=== PATIENT | male | born 1955 | race Caucasian/White ===

== ENCOUNTER 2017-08-23 06:01 | Day surgery (SDC) | payer BC, OTHER ==
[2017-08-18 16:56] LABS: Absolute Lymphocytes (CBC) 2.1 K/uL (0.7-4.9); Absolute Monocytes 0.7 K/uL (0.1-1.3); Absolute Neutrophil 4.8 K/uL (1.8-8.0); Basophils % 0.7 % (0-1.3); Eosinophils % 1.8 % (0-4.4); Hematocrit 47.2 % (39.6-49.0); Lymphocytes % 26.9 % (15.3-44.8); MCH 30.3 pg (27.0-35.0); MCV 91.2 fL (80-100); MPV 9.6 fL (7.6-11.3); Monocytes % 8.6 % (3.3-12.3); RBC Red Blood Cell Count 5.17 M/uL (4.33-5.43)
[2017-08-18 17:03] LABS: Protime INR 1.49
[2017-08-18 17:10] LABS: Potassium 4.2 mEq/L (3.6-5.0)
[2017-08-23] MEDS ORDERED: NA CHLORIDE 0.9% 500 ML ONE (06:28)
[2017-08-23] MEDS ORDERED: MIDAZOLAM HCL 2 MG/2 ML INJ ONE ×2 (07:02→07:11)
[2017-08-23 07:50] VITALS: TEMP 97
--- NOTE | 2017-08-23 08:26 | EKG ---
Test Date: 2017-08-23 Test Time: 07:23:36 Hvac R Tech: SEVEN MEASUREMENT RESULTS: Intervals: Rate: 65 SD: 170 QRSD: 106 QT: 526 QTc: 547 [place]: P: 51 SD: 170 QRS: 56 T: -15 INTERPRETIVE STATEMENTS: Normal sinus rhythm Nonspecific ST and T wave abnormality Prolonged QT Abnormal ECG Compared to ECG 07/08/2017 18:54:58 Atrial fibrillation no longer present ST (T wave) deviation still present Electronically Signed On 08-23-17 08:25:23 CDT by Jer Nice
[2017-08-23 08:52] VITALS: BP 128/73
[2017-08-23 08:53] VITALS: O2SAT 97
--- NOTE | 2017-08-23 16:27 | OP ---
Date of Procedure: 08/23/2017 Surgeon: Jer Nice MD Sound Technician Supervisor: Ms. Rubio. Indications For Procedure: Mr. De Leon is a 62-year-old white male with history of alcoholic cardi omyopathy, paroxysmal atrial fibrillation, had cardioversion in the past, but had recurrent atrial fi brillation, placed on amiodarone and Xarelto, admitted as an outpatient for a cardioversion. He was brought to the lab animal technician, was given 12 mg of Versed IV sedation. He was given 2 shocks, one was 100, second one was 200 joules to convert him to sinus rhythm. There were no complications. No blood los s. Preoperative Diagnosis: Atrial fibrillation. Postoperative Diagnoses: Atrial fibrillation converted to sinus rhythm. Plan: We will continue his medical regimen including Xarelto and amiodarone. He will be able to go home whenever he wakes up. If he fails this down the road and has any recurrence, he will be transfe rred to Electrophysiology Services for possible ablation. Operators: Josh Hanks Voice ID: [id number] Report ID: [id number]
== END 2017-08-23 09:02 | disposition home or self-care (01) ==
LOC: CCL 06:01
PROC: 5A2204Z Restoration of Cardiac Rhythm, Single (ICD-10-PCS; principal; 2017-08-23)
DX: I48.91 Unspecified atrial fibrillation (principal); I10 Essential (primary) hypertension; E78.5 Hyperlipidemia, unspecified; Z79.01 Long term (current) use of anticoagulants; Z87.891 Personal history of nicotine dependence; Z82.49 Family history of ischemic heart disease and other diseases of the circulatory system
CPT/HCPCS: 36415; 80048; 85025; 85610; 85730; 92960; 93005; J2250

== ENCOUNTER 2017-12-29 06:48 | Day surgery (SDC) | payer BC, OTHER ==
--- NOTE | 2017-12-27 17:17 | RAD REPORT ---
EXAM DESCRIPTION: RAD - Chest Pa And Lat (2 Views) - 12/27/2017 5:09 pm CLINICAL HISTORY: preop Chest pain. COMPARISON: Chest Single View dated 07/08/2017; Chest Single View dated 08/19/2015; Chest Single View d ated 08/07/2015 FINDINGS: Diffuse emphysematous changes are present throughout the lungs. An equivocal small area of nodularity is noted in the right lower lung, not clearly present on the prior study. Followup CT [facility] [address] imaging would be helpful for clarification. The heart is mildly prominent size. No displaced fract ures. IMPRESSION: Diffuse COPD. Equivocal area of small nodularity in the right lower lung would benefit from follow-up CT chest asse ssment.
[2017-12-27 17:45] LABS: Absolute Lymphocytes (CBC) 1.8 K/uL (0.7-4.9); Absolute Monocytes 0.6 K/uL (0.1-1.3); Absolute Neutrophil 4.6 K/uL (1.8-8.0); Basophils % 0.9 % (0-1.3); Eosinophils % 1.6 % (0-4.4); Hematocrit 43.5 % (39.6-49.0); Lymphocytes % 24.9 % (15.3-44.8); MCH 30.1 pg (27.0-35.0); MCV 90.3 fL (80-100); MPV 10.4 fL (7.6-11.3); Monocytes % 8.2 % (3.3-12.3); RBC Red Blood Cell Count 4.81 M/uL (4.33-5.43)
[2017-12-27 17:49] LABS: Protime INR 1.43
[2017-12-27 17:57] LABS: Potassium 4.4 mmol/L (3.5-5.1)
[~2017-12-29 06:48] MED LIST: HEPA 1000U/500MLS 1,000 UNIT/500 ML BAG IV ONE
[2017-12-29] MEDS ORDERED: NA CHLORIDE 0.9% 500 ML ONE (07:33)
[2017-12-29] MEDS ORDERED: ATROPINE SULF 1 MG/10 ML SYR IV ONE (08:15)
[2017-12-29] MEDS ORDERED: NA CHLORIDE 0.9% 0 ML ONE (08:15)
[2017-12-29] MEDS ORDERED: MIDAZOLAM HCL 2 MG/2 ML INJ ONE (08:15)
[2017-12-29] MEDS ORDERED: FENTANYL CITR 100 MCG/2 ML ONE (08:15)
[2017-12-29] MEDS ORDERED: LIDOCAINE 1% MPF 5 ML VIAL ONE (08:19)
[2017-12-29 09:22] VITALS: TEMP 97
[2017-12-29 10:45] VITALS: O2SAT 98
[2017-12-29 11:17] VITALS: BP 112/76
--- NOTE | 2017-12-29 13:04 | OP ---
Surgeon: Jer Nice MD Senior Investigator: Kait Maddox. Admitted on 12/29/2017 for an outpatient heart catheterization. Procedures: Left heart catheterization, selective coronary arteriogram, and left ventriculogram. Indication: Atrial fibrillation, congestive heart failure, abnormal stress test. Mr. De Leon is 62, has had an abnormal stress test, severe cardiomyopathy, presumably secondary to alcohol. Recurrent resistant atrial fibrillation. Was sent to Dr. Hill to [place] for possible abl ation and maybe a pacemaker. They wanted us to do a heart catheterization first. He was brought to the lab head as an outpatient, prepped and draped in the routine sterile fashion. A 6-Nigerien sheath introduced in the right common femoral artery. Angio-Seal was used to close the case. Angiography i n the common femoral artery shows moderate to diffuse plaquing in the right SFA and common femoral ar opal. Vikram catheters were used to do the left main and right main injection. He had a total RCA 100% with collaterals from the LAD. He had about a 50% long stenosis in the circumflex. He is codom inant. LAD was normal overall with some very minimal plaquing. A pigtail was used to do the LV-gram . Ejection fraction was probably about 35-40%. Had moderate diffuse global hypokinesis. His end-di astolic pressure was 10. There were no complications. Blood Loss: 5 cc. Final Diagnoses: Congestive heart failure, coronary artery disease, and atrial fibrillation. Plan: To continue medical therapy. Refer back for possible ablation. Resume Xarelto starting [employer]. May be a candidate for ARBs or ARMEN inhibitors down the road. Total Conscious Sedation: 30 minutes. NB/MODL Voice ID: [id number] Report ID: [id number]
== END 2017-12-29 11:18 | disposition home or self-care (01) ==
LOC: CCL 06:48
PROC: 4A023N7 Measurement of Cardiac Sampling and Pressure, Left Heart, Percutaneous Approach (ICD-10-PCS; principal; 2017-12-29)
PROC: B2111ZZ Fluoroscopy of Multiple Coronary Arteries using Low Osmolar Contrast (ICD-10-PCS; 2017-12-29)
PROC: B2151ZZ Fluoroscopy of Left Heart using Low Osmolar Contrast (ICD-10-PCS; 2017-12-29)
DX: I25.10 Atherosclerotic heart disease of native coronary artery without angina pectoris (principal); R94.31 Abnormal electrocardiogram [ECG] [EKG]; R07.89 Other chest pain; E78.5 Hyperlipidemia, unspecified; Z82.49 Family history of ischemic heart disease and other diseases of the circulatory system; I48.91 Unspecified atrial fibrillation; Z87.891 Personal history of nicotine dependence; E78.6 Lipoprotein deficiency; I42.6 Alcoholic cardiomyopathy; Z79.01 Long term (current) use of anticoagulants; Z79.82 Long term (current) use of aspirin; I11.0 Hypertensive heart disease with heart failure; I50.9 Heart failure, unspecified
CPT/HCPCS: 36415; 71046; 80048; 85025; 85610; 85730; 93458; C1760; C1893; J0583; J2250; J3010

== ENCOUNTER 2018-01-12 09:27 | Observation (INO) | payer BC, OTHER ==
[2018-01-12] MEDS ORDERED: LEVALBUTEROL 1.25 MG/3 ML NEB ONE (10:01)
[2018-01-12] MEDS ORDERED: FUROSEMIDE 20 MG/ 2ML VIAL ONE ×2 (10:11→14:20)
[2018-01-12 10:12] LABS: Absolute Lymphocytes (CBC) 1.3 K/uL (0.7-4.9); Absolute Monocytes 0.5 K/uL (0.1-1.3); Absolute Neutrophil 7.4 K/uL (1.8-8.0); Basophils % 0.6 % (0-1.3); Eosinophils % 0.6 % (0-4.4); Hematocrit 42.8 % (39.6-49.0); Lymphocytes % 13.9 % (15.3-44.8); MCH 30.2 pg (27.0-35.0); MCV 90.6 fL (80-100); MPV 9.8 fL (7.6-11.3); Monocytes % 5.4 % (3.3-12.3); RBC Red Blood Cell Count 4.72 M/uL (4.33-5.43)
[2018-01-12 10:17] LABS: Protime INR 2.35
[2018-01-12 10:27] LABS: Albumin 3.8 g/dL (3.4-5.0); Bilirubin Direct 0.3 mg/dL (0-0.2); Magnesium 2.2 mg/dL (1.8-2.4); Potassium 4.7 mmol/L (3.5-5.1); Protein, Total 6.9 g/dL (6.4-8.2); Troponin (Emerg Dept Use Only) 0.03 ng/mL (0.0-0.045)
--- NOTE | 2018-01-12 11:01 | RAD REPORT ---
EXAM DESCRIPTION: RAD - Chest Single View - 01/12/2018 10:19 am CLINICAL HISTORY: Chest pain;SOB Chest pain. COMPARISON: Chest Pa And Lat (2 Views) dated 12/27/2017; Chest Single View dated 07/08/2017; Chest Sing le View dated 08/19/2015; Chest Single View dated 08/07/2015 FINDINGS: Portable technique limits examination quality. The lungs are emphysematous but grossly clear. Heart is moderately enlarged. No displaced fractures. IMPRESSION: Mild COPD.
--- NOTE | 2018-01-12 11:11 | EKG ---
Test Date: 2018-01-12 Test Time: 09:35:19 Dental Laboratory Technology Teacher: TONI MEASUREMENT RESULTS: Intervals: Rate: 103 GA: QRSD: 124 QT: 382 QTc: 500 [place]: P: GA: QRS: 68 T: 180 INTERPRETIVE STATEMENTS: Atrial fibrillation with rapid ventricular response Cannot rule out Inferior infarct, age undetermined ST & T wave abnormality, consider lateral ischemia or digitalis effect Abnormal ECG Compared to ECG 08/23/2017 07:23:36 Myocardial infarct finding now present Possible ischemia now present Sinus rhythm no longer present Prolonged QT interval no longer present ST (T wave) deviation still present Electronically Signed On 01-12-18 11:11:18 CDT by Jer Nice
--- NOTE | 2018-01-12 11:16 | RAD REPORT ---
EXAM DESCRIPTION: CT - Thorax Wo Con - 01/12/2018 10:47 am CLINICAL HISTORY: Chest pain COMPARISON: July 2015 TECHNIQUE: Computed axial tomography of the chest was obtained. Contrast was not requested. All CT scans are performed using dose optimization technique as appropriate and may include automated exposure control or mA/KV adjustment according to patient size. FINDINGS: The evaluation of mediastinum, monica and vessels is limited secondary to lack of IV contras t administration. Mild ground-glass opacities within the right lung are present. The heart is enlarged Several middle mediastinal lymph nodes measure about 1 centimeter. Calcified mediastinal lymph nodes are also noted. Small bilateral pleural effusions are present. A pericardial effusion is not seen. Coronary arterial calcifications are noted. IMPRESSION: Small bilateral pleural effusions Cardiomegaly Mild ground-glass opacities within the right lung indicative of a mild alveolitis. Mild mediastinal lymphadenopathy probably is reactive in nature. Follow up CT chest in 3 months would be helpful to assess stability/ resolution.
--- NOTE | 2018-01-12 12:21 | ER ---
Nurse's Notes [facility] Name: Tad De Leon Age: 62 yrs Sex: Male : 1955 Arrival Date: 01/12/2018 Time: 09:28 Bed 3 Private MD: BERTA DANG Diagnosis: CHF, COPD exacerbation, chest pain Presentation: 01/12 09:36 Presenting complaint: Patient states: substernal chest pain x 1 week, cardiac cath done jl7 last Tuesday, has an ablation scheduled for next Tuesday. Dyspnea since yesterday. Transition of care: patient was not received from another setting of care. Onset of symptoms was January 11, 2018. Risk Assessment: Do you want to hurt yourself or someone else? Patient reports no desire to harm self or others. Initial Sepsis Screen: Does the patient meet any 2 criteria? No. Patient's initial sepsis screen is negative. Does the patient have a suspected source of infection? No. Patient's initial sepsis screen is negative. Care prior to arrival: None. 09:36 Method Of Arrival: Ambulatory [facility] 09:36 Acuity: ANTONIO 2 jl7 Triage Assessment: 09:41 General: Appears uncomfortable, Behavior is cooperative. Pain: Complains of pain in jl7 mid-sternal area Pain does not radiate. Pain currently is 5 out of 10 on a pain scale. Quality of pain is described as burning, "It really only starts really bothering me when my blood pressure is high." Is intermittent. EENT: No signs and/or symptoms were reported regarding the EENT system. Neuro: Level of Consciousness is awake, alert, obeys commands, Oriented to person, place, time, situation. Cardiovascular: Heart tones present Murmur present Chest pain is described as Pain is 5 out of 10 on a pain scale. quality is burning, is located in substernal area episodes are intermittent. Respiratory: Airway is patent Respiratory effort is even, unlabored, Respiratory pattern is regular, symmetrical, Breath sounds with wheezes bilaterally. GI: Reports nausea, Patient currently denies diarrhea, vomiting. : No signs and/or symptoms were reported regarding the genitourinary system. Derm: No signs and/or symptoms reported regarding the dermatologic system. Musculoskeletal: No signs and/or symptoms reported regarding the musculoskeletal system. Historical: - Allergies: 09:41 No Known Allergies; jl7 - Home Meds: 09:41 Xarelto oral oral [Active]; jl7 - PMHx: 09:41 Arthritis; Atrial Fib; High Cholesterol; Hypothyroidism; Hypertension; jl7 - PSHx: 09:41 Cardiac Cath; jl7 - Immunization history:: Adult Immunizations unknown. - Social history:: Smoking status: Patient uses tobacco products, denies chronic smoking, but will smoke occasionally. - Ebola Screening: : No symptoms or risks identified at this time. Screenin:45 Abuse screen: Denies threats or abuse. Denies injuries from another. Nutritional jl7 screening: No deficits noted. Tuberculosis screening: No symptoms or risk factors identified. Fall Risk IV access (20 points). Assessment: :45 General: Dr. Braga at bedside, pt reports "I've had shortness of breath since I had jl7 the cardiac cath last Tuesday.". 10:00 Reassessment: Removed NC to administer breathing treatment. NC was off for jl7 approximately 30 seconds and pt's O2 decreased to 87%, provider notified. 11:00 Reassessment: No changes from previously documented assessment. Patient and/or family jl7 updated on plan of care and expected duration. Pain level reassessed. Patient is alert, oriented x 3, equal unlabored respirations, skin warm/dry/pink. 12:00 Reassessment: Patient and/or family updated on plan of care and expected duration. Pain jl7 level reassessed. Patient is alert, oriented x 3, equal unlabored respirations, skin warm/dry/pink. Patient states symptoms have improved. 13:00 Reassessment: Patient appears in no apparent distress at this time. Patient and/or jl7 family updated on plan of care and expected duration. Pain level reassessed. Patient is alert, oriented x 3, equal unlabored respirations, skin warm/dry/pink. 14:00 Reassessment: Patient and/or family updated on plan of care and expected duration. Pain jl7 level reassessed. Patient is alert, oriented x 3, equal unlabored respirations, skin warm/dry/pink. Pain: Denies pain. Pain began a week ago. Vital Signs: 09:33 BP 120 / 95; Pulse 99; Resp 15 S; Pulse Ox 89% on R/A; Weight 97.52 kg (R); Height 6 jl7 ft. 0 in. (182.88 cm) (R); Pain 5/10; 09:40 Pulse Ox 96% on 2 lpm NC; jl7 10:00 BP 105 / 76; Pulse 78; Resp 19 S; Pulse Ox 100% on Nebulizer Mask; jl7 10:30 BP 104 / 82; Pulse 88; Resp 16; Pulse Ox 99% on 2% Nebulizer Mask; jl7 11:08 BP 115 / 71; Pulse 84; Resp 23; Pulse Ox 91% on 2 lpm NC; jl7 12:00 BP 105 / 77; Pulse 81; Resp 16 S; Pulse Ox 97% on 2 lpm NC; jl7 13:00 BP 110 / 83; Pulse 65; Resp 17; Pulse Ox 97% on 2 lpm NC; jl7 09:33 Body Mass Index 29.16 (97.52 kg, 182.88 cm) jl7 ED Course: 09:28 Patient arrived in ED. rg4 09:28 Antonette Ruelas RN is Primary Nurse. jl7 09:29 BERTA DANG is Private Physician. rg4 09:33 Arm band placed on right wrist. jl7 09:38 Triage completed. jl7 09:39 Inserted saline lock: 20 gauge in right antecubital area, using aseptic technique. tw2 Blood collected. Oxygen administration via nasal cannula \\T\\ 2L/min Response to oxygen therapy: pt states improved with his SOB. 09:40 EKG done, by technology manager. reviewed by Minesh Braga MD. sm3 09:45 Minesh Braga MD is Attending Physician. kdr 09:45 Patient has correct armband on for positive identification. Placed in gown. Bed in low jl7 position. Call light in reach. Side rails up X2. monitor car operator on. Pulse ox on. NIBP on. Warm blanket given. 10:15 X-ray completed. Portable x-ray completed in exam room. sw 10:16 XRAY Chest (1 view) In Process Unspecified. EDMS 10:47 Thorax Wo Con In Process Unspecified. EDMS 12:16 Irene Garcia MD is Hospitalizing Provider. kdr 17:15 No provider procedures requiring assistance completed. Patient admitted, IV remains in jl7 place. intact, No redness/swelling at site. Administered Medications: 09:57 Drug: Xopenex (3) 1.25 mg Route: Inhalation; jl7 10:30 Follow up: Response: No adverse reaction jl7 10:12 Drug: Lasix 20 mg Route: IVP; Site: right antecubital; jl7 11:00 Follow up: Response: No adverse reaction jl7 14:38 Drug: Lasix 20 mg Route: IVP; Site: right antecubital; jl7 15:00 Follow up: Response: No adverse reaction jl7 14:40 Drug: SOLU-Medrol 125 mg Route: IVP; Site: right antecubital; jl7 15:00 Follow up: Response: No adverse reaction jl7 Outcome: 12:20 Decision to Hospitalize by Provider. kdr 16:53 Patient left the ED. sg 17:15 Admitted to Tele accompanied by tech, via wheelchair, room 409, with chart, Report jl7 called to AIDEE Barros 17:15 Condition: stable 17:15 Discharge instructions given to patient, Instructed on the need for admit, Demonstrated understanding of instructions. Signatures: Dispatcher [employer] Freedom Atkins, Minesh Ferrara RN, MD MD kdr Lindy Piedra Tara, RN RN tw2 Lazara Pierre 4 Antonette Ruelas RN RN jl7 Berta Bustamante 3
--- NOTE | 2018-01-12 12:21 | EDPHYS ---
Physician Documentation [facility] Name: Tad De Leon Age: 62 yrs Sex: Male : 1955 Arrival Date: 01/12/2018 Time: 09:28 Bed 3 Private MD: BERTA DANG ED Physician Minesh Braga HPI: 01/12 15:36 This 62 yrs old Male presents to ER via Ambulatory with complaints of Chest kdr Pain, Breathing Difficulty. 15:37 The patient has shortness of breath at rest, with light activity. Onset: The kdr symptoms/episode began/occurred gradually, 1 week(s) ago. Duration: The symptoms are continuous, and are steadily getting worse. The patient's shortness of breath is aggravated by coughing, exertion, light activity. Associated signs and symptoms: The patient has no apparent associated signs or symptoms, Pertinent positives: chest pain. Severity of symptoms: At their worst the symptoms were moderate in the emergency department the symptoms are unchanged. The patient has not experienced similar symptoms in the past. The patient has been recently seen by a physician: One week DIVER PUMPER the patient had a heart cath in [place]. Since then, he has been increasingly short of breath. Historical: - Allergies: 09:41 No Known Allergies; jl7 - Home Meds: 09:41 Xarelto oral oral [Active]; jl7 - PMHx: 09:41 Arthritis; Atrial Fib; High Cholesterol; Hypothyroidism; Hypertension; jl7 - PSHx: 09:41 Cardiac Cath; jl7 - Immunization history:: Adult Immunizations unknown. - Social history:: Smoking status: Patient uses tobacco products, denies chronic smoking, but will smoke occasionally. - Ebola Screening: : No symptoms or risks identified at this time. ROS: 15:37 Constitutional: Negative for fever, chills, and weight loss, Eyes: Negative for injury, kdr pain, redness, and discharge, Neck: Negative for injury, pain, and swelling, Cardiovascular: Negative for chest pain, palpitations, and edema, Abdomen/GI: Negative for abdominal pain, nausea, vomiting, diarrhea, and constipation, Back: Negative for injury and pain, : Negative for injury, bleeding, discharge, and swelling, MS/Extremity: Negative for injury and deformity, Skin: Negative for injury, rash, and discoloration, Neuro: Negative for headache, weakness, numbness, tingling, and seizure activity. Psych: Negative for depression, anxiety, suicide ideation, homicidal ideation, and hallucinations, Allergy/Immunology: Negative for hives, rash, and allergies, Endocrine: Negative for neck swelling, polydipsia, polyuria, polyphagia, and marked weight changes, Hematologic/Lymphatic: Negative for swollen nodes, abnormal bleeding, and unusual bruising. 15:37 Respiratory: Positive for dyspnea on exertion, shortness of breath, wheezing, Negative for cough, hemoptysis, orthopnea, pleurisy, sputum production, wheezing. Exam: 15:37 Constitutional: This is a well developed, well nourished patient who is awake, alert, kdr and in no acute distress. Head/Face: Normocephalic, atraumatic. Eyes: Pupils equal round and reactive to light, extra-ocular motions intact. Lids and lashes normal. Conjunctiva and sclera are non-icteric and not injected. Cornea within normal limits. Periorbital areas with no swelling, redness, or edema. Neck: Trachea midline, no thyromegaly or masses palpated, and no cervical lymphadenopathy. Supple, full range of motion without nuchal rigidity, or vertebral point tenderness. No Meningismus. Chest/axilla: Normal chest wall appearance and motion. Nontender with no deformity. No lesions are appreciated. Cardiovascular: Regular rate and rhythm with a normal S1 and S2. No gallops, murmurs, or rubs. Normal PMI, no JVD. No pulse deficits. Respiratory: Lungs have equal breath sounds bilaterally, clear to auscultation and percussion. No rales, rhonchi or wheezes noted. No increased work of breathing, no retractions or nasal flaring. Abdomen/GI: Soft, non-tender, with normal bowel sounds. No distension or tympany. No guarding or rebound. No evidence of tenderness throughout. Back: No spinal tenderness. No costovertebral tenderness. Full range of motion. Skin: Warm, dry with normal turgor. Normal color with no rashes, no lesions, and no evidence of cellulitis. MS/ Extremity: Pulses equal, no cyanosis. Neurovascular intact. Full, normal range of motion. Neuro: Awake and alert, GCS 15, oriented to person, place, time, and situation. Cranial nerves II-XII grossly intact. Motor strength 5/5 in all extremities. Sensory grossly intact. Cerebellar exam normal. Normal gait. Psych: Awake, alert, with orientation to person, place and time. Behavior, mood, and affect are within normal limits. Vital Signs: 09:33 BP 120 / 95; Pulse 99; Resp 15 S; Pulse Ox 89% on R/A; Weight 97.52 kg (R); Height 6 jl7 ft. 0 in. (182.88 cm) (R); Pain 5/10; 09:40 Pulse Ox 96% on 2 lpm NC; jl7 10:00 BP 105 / 76; Pulse 78; Resp 19 S; Pulse Ox 100% on Nebulizer Mask; jl7 10:30 BP 104 / 82; Pulse 88; Resp 16; Pulse Ox 99% on 2% Nebulizer Mask; jl7 11:08 BP 115 / 71; Pulse 84; Resp 23; Pulse Ox 91% on 2 lpm NC; jl7 12:00 BP 105 / 77; Pulse 81; Resp 16 S; Pulse Ox 97% on 2 lpm NC; jl7 13:00 BP 110 / 83; Pulse 65; Resp 17; Pulse Ox 97% on 2 lpm NC; jl7 09:33 Body Mass Index 29.16 (97.52 kg, 182.88 cm) jl7 MDM: 12:20 Patient medically screened. kdr 15:40 Data reviewed: vital signs, nurses notes, lab test result(s), EKG, radiologic studies. kdr Counseling: I had a detailed discussion with the patient and/or guardian regarding: the historical points, exam findings, and any diagnostic results supporting the discharge/admit diagnosis, lab results, radiology results, the need for outpatient follow up. 01/12 09:45 Order name: Basic Metabolic Panel; Complete Time: 11:16 kdr 01/12 09:45 Order name: CBC with Diff; Complete Time: 11:16 kdr 01/12 09:45 Order name: Ckmb; Complete Time: 11:16 kdr 01/12 09:45 Order name: CPK; Complete Time: 11:16 kdr 01/12 09:45 Order name: LFT's; Complete Time: 11:16 kdr 01/12 09:45 Order name: Magnesium; Complete Time: 11:16 kdr 01/12 09:45 Order name: NT PRO-BNP; Complete Time: 11:16 kdr 01/12 09:45 Order name: PT-INR; Complete Time: 11:16 kdr 01/12 09:45 Order name: Ptt, Activated; Complete Time: 11:16 kdr 01/12 09:45 Order name: Troponin (emerg Dept Use Only); Complete Time: 11:16 kdr 01/12 09:45 Order name: XRAY Chest (1 view); Complete Time: 11:16 kdr 01/12 10:33 Order name: Thorax Wo Con; Complete Time: 11:52 EDMS 01/12 11:54 Order name: ABG kdr 01/12 09:45 Order name: EKG; Complete Time: 09:46 kdr 01/12 09:45 Order name: Cardiac monitoring; Complete Time: 10:13 kdr 01/12 09:45 Order name: EKG - Nurse/Tech; Complete Time: 10:13 kdr 01/12 09:45 Order name: IV Saline Lock; Complete Time: 10:13 kdr 01/12 09:45 Order name: Labs collected and sent; Complete Time: 10:13 kdr 01/12 09:45 Order name: O2 Per Protocol; Complete Time: 10:13 kdr 01/12 09:45 Order name: O2 Sat Monitoring; Complete Time: 10:13 kdr 01/12 13:15 Order name: Echo with Doppler EDMS Administered Medications: 09:57 Drug: Xopenex (3) 1.25 mg Route: Inhalation; jl7 10:30 Follow up: Response: No adverse reaction jl7 10:12 Drug: Lasix 20 mg Route: IVP; Site: right antecubital; jl7 11:00 Follow up: Response: No adverse reaction jl7 14:38 Drug: Lasix 20 mg Route: IVP; Site: right antecubital; jl7 15:00 Follow up: Response: No adverse reaction jl7 14:40 Drug: SOLU-Medrol 125 mg Route: IVP; Site: right antecubital; jl7 15:00 Follow up: Response: No adverse reaction jl7 Disposition: 01/12/18 12:20 Hospitalization ordered by Irene Garcia for Observation. Preliminary diagnosis is CHF, COPD exacerbation, chest pain. - Bed requested for Telemetry/MedSurg (observation). - Status is Observation. sg - Condition is Fair. - Problem is an acute exacerbation. - Symptoms have improved. UTI on Admission? No Signatures: Dispatcher [employer] EDMS Amara Delvalle bd Freedom Lundberg RN RN sg Minesh Braga MD MD kdr Antonette Ruelas RN RN jl7 Corrections: (The following items were deleted from the chart) 10:33 10:04 Chest For PE Angio+CT.RAD.BRZ ordered. EDNE EDMS 14:57 12:20 Hospitalization Ordered by Irene Garcia MD for Observation. Preliminary bd diagnosis is CHF, COPD exacerbation, chest pain. Bed requested for Telemetry/MedSurg (observation). Status is Observation. Condition is Fair. Problem is an acute exacerbation. Symptoms have improved. UTI on Admission? No. kdr 15:40 15:37 Constitutional: Negative for fever, chills, and weight loss, Eyes: Negative for kdr injury, pain, redness, and discharge, Neck: Negative for injury, pain, and swelling, Cardiovascular: Negative for chest pain, palpitations, and edema, Abdomen/GI: Negative for abdominal pain, nausea, vomiting, diarrhea, and constipation, Back: Negative for injury and pain, : Negative for injury, bleeding, discharge, and swelling, MS/Extremity: Negative for injury and deformity, Skin: Negative for injury, rash, and discoloration, Neuro: Negative for headache, weakness, numbness, tingling, and seizure activity. Psych: Negative for depression, anxiety, suicide ideation, homicidal ideation, and hallucinations, Allergy/Immunology: Negative for hives, rash, and allergies, Endocrine: Negative for neck swelling, polydipsia, polyuria, polyphagia, and marked weight changes, Hematologic/Lymphatic: Negative for swollen nodes, abnormal bleeding, and unusual bruising, kdr 15:40 15:37 Respiratory: Positive for dyspnea on exertion, shortness of breath, Negative for kdr cough, hemoptysis, orthopnea, pleurisy, sputum production, wheezing, kdr 16:53 14:57 01/12/2018 12:20 Hospitalization Ordered by Irene Garcia MD for Observation. Preliminary diagnosis is CHF, COPD exacerbation, chest pain. Bed requested for Telemetry/MedSurg (observation). Status is Observation. Condition is Fair. Problem is an acute exacerbation. Symptoms have improved. UTI on Admission? No. bd
[2018-01-12 12:31] LABS: Arterial Blood Carboxyhemoglob 2.4 % (0-1.5); Blood Gas Oxyhemoglobin 92.3 % (94-97); Blood O2 Saturation 95.6 % (92-98.5)
--- NOTE | 2018-01-12 14:00 | P.HP ---
Certification for Inpatient Patient admitted to: Inpatient With expected LOS: >2 Midnights Patient will require the following post-hospital care: None Practitioner: I am a practitioner with admitting privileges, knowledge of patient current condition, hospital course, and medical plan of care. Services: Services provided to patient in accordance with Admission requirements found in Title 42 Section 412.3 of the Code of Federal Regulations Patient History Date of Service: 01/12/18 Primary Care Provider: Dr. Nice - Cardiology Reason for admission: Shortness of breath History of Present Illness: This is a 62-year-old male with significant past medical history of hypertension , hyperlipidemia, hypothyroidism, atrial fibrillation, who presented to the ED complaining of having some shortness of breath x1 week. Patient was recently admitted to the hospital and had a heart carry a catheterization done at this time for chest pain. Patient's cardiac catheterization was within normal limits. Patient however states that since the cardiac catheterization he has been having some shortness of breath has been getting progressively worse. Patient states that he does have underlying COPD and does take his inhalers at home however he uses them as needed basis only. Patient states that his has been having trouble talking to full sentences and has been noticing that he has been getting tired more than before. Patient at this time does deny having any fever chills nausea vomiting or any chest pain at this time. Other than shortness of breath. Patient does not have any other complaints to offer. In the ER patient was found to have tachypnea along with hypoxia on room air in this patient was referred over to admission for further care. X-ray was consistent with mild COPD as well. Allergies No Known Allergies Allergy (Verified 12/27/17 16:47) Home medications list reviewed: Yes Home Medications: Cyanocobalamin (Vitamin B-12) [Vitamin B12] 1,000 mcg PO DAILY 08/08/15 Magnesium Oxide [Mag 0X*] 400 mg PO DAILY 08/08/15 Multivit-Min/FA/Lycopen/Lutein [Centrum Silver Tablet] 1 each PO DAILY 08/08/15 Simvastatin [Zocor*] 20 mg PO DAILY 08/08/15 Thyroid Tab [[place] Thyroid*] 105 mg PO DAILY 08/08/15 Tramadol HCl [Ultram] 50 mg PO DAILY 08/08/15 Amiodarone HCl [Cordarone*] 200 mg PO DAILY 07/08/17 Aspirin Chewable [Aspirin Chewable*] 81 mg PO DAILY 07/08/17 Turmeric Root Extract [Turmeric] 500 mg PO DAILY 07/08/17 Amiodarone HCl 200 mg PO DAILY #60 tablet 07/09/17 Aspirin 81 mg PO DAILY #30 tab.chew 07/09/17 Budesonide/Formoterol Fumarate [Symbicort 160-4.5 Mcg Inhaler] 1 puff IH BID #5 hfa.aer.ad 07/09/17 Furosemide [Lasix] 40 mg PO DAILY #30 tablet 07/09/17 Levalbuterol Tartrate [Xopenex Hfa] 15 gm IH Q4H PRN #1 hfa.aer.ad 07/09/17 Potassium Chloride 20 meq PO DAILY 30 Days #30 tablet.er 07/09/17 - Past Medical/Surgical History Has patient received pneumonia vaccine in the past: No Diabetic: No -: HTN -: Atrial fibrillation -: Dyslipidemia -: hypothyroid -: arthritis -: Right shoulder surgery - Family History Family History: Reviewed- Non-Contributory - Family History Father -: Heart disease Notes: of heart attack Mother -: Heart disease, Cancer Brother -: Diabetes - Social History Smoking Status: Current every day smoker Alcohol use: Yes CD- Drugs: No Caffeine use: Yes Review of Systems 10-point ROS is otherwise unremarkable Physical Examination - Physical Exam General: Alert, Oriented x3, Mild distress, Obese HEENT: Atraumatic, PERRLA, Mucous membr. moist/pink, EOMI, Sclerae nonicteric Neck: Supple, 2+ carotid pulse no bruit, No LAD, Without JVD or thyroid abnormality Respiratory: Normal air movement, Crackles/rales, Expiratory wheezes, Inspiratory wheezes Cardiovascular: Regular rate/rhythm, Normal S1 S2 Gastrointestinal: Normal bowel sounds, No tenderness Musculoskeletal: No tenderness Integumentary: No rashes Neurological: Normal gait, Normal speech, Normal strength at 5/5 x4 extr, Normal tone, Normal affect Lymphatics: No axilla or inguinal lymphadenopathy - Studies Laboratory Data (last 24 hrs) 01/12/18 09:45: PT 28.0 H, INR 2.35, APTT 42.1 H 01/12/18 09:45: WBC 9.3, Hgb 14.3, Hct 42.8, Plt Count 220 01/12/18 09:45: Sodium 143, Potassium 4.7, BUN 33 H, Creatinine 1.80 H, Glucose 138 H, Magnesium 2.2, Total Bilirubin 1.0, AST 24, ALT 35, Alkaline Phosphatase 72 Assessment and Plan - Problems (Diagnosis) (1) Shortness of breath Onset Date: 08/08/15 Current Visit: No Status: Acute Plan: Shortness of breath x1 week. Progressively getting worse. Most likely secondary to COPD exacerbation versus AFib versus CHF. -for COPD exacerbation was start patient on duo nebs, oxygen and steroids at this time. Will get pulmonology consulted. Will wean off oxygen as needed -For atrial fibrillation patient remains rate control at this time. Patient does have an appointment with EP student life advisor to get a cardiac ablation next Tuesday. Will keep the appointment at this time. Also will get a cardiology consultation done here in the hospital as well. -for patient's possible CHF. Will go ahead and get an echocardiogram done here in the hospital. Will also get cardiology consultation at this time. Will hold off on giving Lasix as x-rays clear of edema (2) COPD with acute exacerbation Current Visit: No Status: Acute Plan: COPD with acute exacerbation with hypoxia -duo nebs, steroids, oxygen -wean oxygen as tolerated -pulmonology consulted. Awaiting recommendations at this time. (3) Afib Current Visit: Yes Status: Chronic Plan: Atrial fibrillation. Rate control at this time. -will restart home medication for rate control and anti coagulation at this time Qualifiers: Atrial fibrillation type: chronic Qualified Code(s): I48.2 - Chronic atrial fibrillation (4) Hypothyroid Current Visit: Yes Status: Chronic Plan: Will restart home medication at this time (5) Alcohol abuse Current Visit: No Status: Chronic (6) Tobacco abuse Current Visit: No Status: Chronic Discharge Plan: Home Plan to discharge in: 48 Hours - Advance Directives Does patient have a Living Will: No Does patient have a Durable POA for Healthcare: No - Code Status/Comfort Care Code Status Assessed: Yes Critical Care: No
[2018-01-12] MEDS ORDERED: METHYLPREDNISOLONE 125 MG INJ ONE (14:20)
[2018-01-12] MEDS ORDERED: ONDANSETRON 4 MG/2 ML VIAL IV PRN (15:38)
[2018-01-12] MEDS ORDERED: IPRATROPIUM BROM 0.5MG/2.5ML NEB PRN (15:38)
[2018-01-12] MEDS ORDERED: ALBUTEROL 2.5 MG/3 ML NEB SOL NEB PRN (15:38)
[2018-01-12] MEDS ORDERED: ACETAMINOPHEN 500 MG TAB PO PRN (15:38)
[2018-01-12] MEDS: INSULIN -REGULAR HUMAN 50 UNIT/0.5 ML ML SQ SCH ×2 (16:30→21:00)
[2018-01-12] MEDS ORDERED: RIVAROXABAN 20 MG TABLET PO SCH (17:00)
[2018-01-12] MEDS: ENOXAPARIN 40 MG/0.4 ML SQ SCH (18:15)
[2018-01-12] MEDS ORDERED: PNEUMOCOCCAL VACCINE 0.5 ML IMVAC ONE (21:00)
[2018-01-12] MEDS ORDERED: HOME MED 1 EA UNK (Ranolazine [Ranexa] 500 MG) PO SCH (21:00)
[2018-01-12] MEDS ORDERED: ATORVASTATIN 10 MG TAB PO SCH (21:00)
[2018-01-12] MEDS: METOPROLOL TAR 25 MG TAB PO SCH (21:55)
[2018-01-13 03:24] LABS: Urine Appearance CLEAR; Urine Bilirubin NEGATIVE (NEG); Urine Blood NEGATIVE (NEG); Urine Color YELLOW; Urine Glucose NEGATIVE (NEG); Urine Protein NEGATIVE (NEG); Urine pH 6.5 (5.0-7.0)
[2018-01-13 03:28] LABS: Urine Microscopic Reflex NO UMIC
[2018-01-13 05:54] LABS: Absolute Lymphocytes (CBC) 0.6 K/uL (0.7-4.9); Absolute Monocytes 0.1 K/uL (0.1-1.3); Absolute Neutrophil 6.7 K/uL (1.8-8.0); Basophils % 0.1 % (0-1.3); Eosinophils % 0.1 % (0-4.4); Hematocrit 38.8 % (39.6-49.0); Lymphocytes % 7.9 % (15.3-44.8); MCV 89.2 fL (80-100); MPV 9.6 fL (7.6-11.3); Monocytes % 1.4 % (3.3-12.3); RBC Red Blood Cell Count 4.35 M/uL (4.33-5.43)
[2018-01-13 06:07] LABS: Albumin 3.4 g/dL (3.4-5.0); Bilirubin Total 0.7 mg/dL (0.2-1.0); Potassium 3.8 mmol/L (3.5-5.1); Protein, Total 6.2 g/dL (6.4-8.2)
[2018-01-13 06:39] VITALS: BMI 28.8
[2018-01-13 07:18] LABS: Blood Morphology Comment NOTED (NOT SEEN)
[2018-01-13 07:20] LABS: Platelet Estimate ADEQ
[2018-01-13] MEDS: INSULIN -REGULAR HUMAN 50 UNIT/0.5 ML ML SQ SCH ×2 (07:30→11:30)
--- NOTE | 2018-01-13 08:12 | ECHO ---
HEIGHT: 6 ft 0 in WEIGHT: 213 lb 0 oz DATE OF STUDY: 01/12/[address]: Irene Garcia MD 2-DIMENSIONAL: YES M.MODE: YES DOPPLER: YES COLOR FLOW: YES TDS: NO PORTABLE: NO DEFINITY: NO BUBBLE STUDY: NO DIAGNOSIS: SHORTNESS OF BREATH CARDIAC HISTORY: CATHERIZATION: NO SURGERY: NO PROSTHETIC VALVE: NO PACEMAKER: NO MEASUREMENTS (cm) DIASTOLIC (NORMALS) SYSTOLIC (NORMALS) IVSd 1.1 (0.6-1.2) LA Diam 5.3 (1.9-4.0) LVEF 23% LVIDd 7.2 (3.5-5.7) LVIDs 6.4 (2.0-3.5) %FS 11% LVPWd 1.2 (0.6-1.2) Ao Diam 2.9 (2.0-3.7) 2 DIMENSIONAL ASSESSMENT: RIGHT ATRIUM: NORMAL LEFT ATRIUM: DILATED RIGHT VENTRICLE: NORMAL LEFT VENTRICLE: DILATED TRICUSPID VALVE: NORMAL MITRAL VALVE: MITRAL ANNULAR CALCIFICATION PULMONIC VALVE: NORMAL AORTIC VALVE: NORMAL PERICARDIAL EFFUSION: NONE AORTIC ROOT: NORMAL LEFT VENTRICULAR WALL MOTION: SEVERE GLOBAL HYPOKINESIS. DOPPLER/COLOR FLOW: MILD MITRAL, TRICUSPID AND AORTIC REGURGITATION. COMMENTS: SEVERE GLOBAL HYPOKINESIS. LEFT VENTRICULAR DILATATION. LEFT ATRIAL ENLARGEMENT. MITRAL ANNULAR CALCIFICATION. LEFT VENTRICULAR EJECTION FRACTION 20-25%. TECHNOLOGIST: Sidney GUIDRY
[2018-01-13] MEDS ORDERED: HOME MED 1 EA UNK (Simvastatin [Zocor*] 20 MG) PO SCH (09:00)
[2018-01-13] MEDS ORDERED: TRAMADOL HCL 50 MG TAB PO SCH (09:00)
[2018-01-13] MEDS ORDERED: VALSARTAN 80 MG TAB PO SCH (09:00)
[2018-01-13] MEDS ORDERED: HOME MED 1 EA UNK (Cyanocobalamin (Vitamin B-12) [Vitamin B12] 5,000 MCG) PO SCH (09:00)
[2018-01-13] MEDS ORDERED: MAGNESIUM OXIDE 400 MG TAB PO SCH (09:00)
[2018-01-13] MEDS ORDERED: HOME MED 1 EA UNK (Valsartan/Hydrochlorothiazide [Valsartan-Hctz 160-25 Mg Tab] 1 EACH) PO SCH (09:00)
[2018-01-13] MEDS ORDERED: CYANOCOBALAMIN 1,000 MCG TAB PO SCH (09:00)
[2018-01-13] MEDS ORDERED: THIAMINE HCL 100 MG TABLET PO SCH (09:00)
[2018-01-13] MEDS ORDERED: MULTIVIT W/ MINERAL TAB PO SCH (09:00)
[2018-01-13] MEDS ORDERED: AMIODARONE HCL 200 MG TAB PO SCH (09:00)
[2018-01-13] MEDS ORDERED: hydroCHLOROthiazide 25 MG TAB PO SCH (09:00)
[2018-01-13 10:40] VITALS: O2SAT 93
[2018-01-13] MEDS: METOPROLOL TAR 25 MG TAB PO SCH (10:46)
[2018-01-13] MEDS: ENOXAPARIN 40 MG/0.4 ML SQ SCH (10:50)
[2018-01-13 12:42] VITALS: BP 98/60; TEMP 97.1
--- NOTE | 2018-01-13 14:26 | P.SSS ---
Patient History Date of Service: 01/13/18 Primary Care Provider: Dr. Nice - Cardiology Reason for admission: Shortness of breath History of Present Illness: This is a 62-year-old male with significant past medical history of hypertension , hyperlipidemia, hypothyroidism, atrial fibrillation, who presented to the ED complaining of having some shortness of breath x1 week. Patient was recently admitted to the hospital and had a heart carry a catheterization done at this time for chest pain. Patient's cardiac catheterization was within normal limits. Patient however states that since the cardiac catheterization he has been having some shortness of breath has been getting progressively worse. Patient states that he does have underlying COPD and does take his inhalers at home however he uses them as needed basis only. Patient states that his has been having trouble talking to full sentences and has been noticing that he has been getting tired more than before. Patient at this time does deny having any fever chills nausea vomiting or any chest pain at this time. Other than shortness of breath. Patient does not have any other complaints to offer. In the ER patient was found to have tachypnea along with hypoxia on room air in this patient was referred over to admission for further care. X-ray was consistent with mild COPD as well. Allergies No Known Allergies Allergy (Verified 12/27/17 16:47) Home Medications: Cyanocobalamin (Vitamin B-12) [Vitamin B12] 5,000 mcg PO DAILY 08/08/15 Magnesium Oxide [Mag 0X*] 400 mg PO DAILY 08/08/15 Multivit-Min/FA/Lycopen/Lutein [Centrum Silver Tablet] 1 each PO DAILY 08/08/15 Simvastatin [Zocor*] 20 mg PO DAILY 08/08/15 Tramadol HCl [Ultram] 50 mg PO DAILY 08/08/15 Amiodarone HCl [Cordarone*] 200 mg PO DAILY 07/08/17 Potassium Chloride 20 meq PO DAILY 30 Days #30 tablet.er 07/09/17 Metoprolol Tartrate [Lopressor] 25 mg PO BID 01/12/18 Ranolazine [Ranexa] 500 mg PO BID 01/12/18 Rivaroxaban [Xarelto] 20 mg PO 1700 01/12/18 Thiamine HCl [Vitamin B-1] 250 mg PO DAILY 01/12/18 Thyroid,Pork [[place] Thyroid] 150 mg PO DAILY 01/12/18 Valsartan/Hydrochlorothiazide [Valsartan-Hctz 160-25 mg Tab] 1 each PO DAILY 10/24 - Past Medical/Surgical History Has patient received pneumonia vaccine in the past: No Diabetic: No -: HTN -: Atrial fibrillation -: Dyslipidemia -: hypothyroid -: arthritis -: Right shoulder surgery - Family History Family History: Reviewed- Non-Contributory - Family History Father -: Heart disease Notes: of heart attack Mother -: Cancer Notes: Pancreatic Brother -: Diabetes Notes: Borderline - Social History Smoking Status: Current every day smoker Alcohol use: No CD- Drugs: No Caffeine use: Yes Place of Residence: Home Review of Systems 10-point ROS is otherwise unremarkable Physical Examination - Vital Signs Temperature: 97.1 F Blood Pressure: 98/60 Pulse: 86 Respirations: 20 Pulse Ox (%): 94 - Physical Exam General: Alert, In no apparent distress HEENT: Atraumatic, PERRLA, Mucous membr. moist/pink, EOMI, Sclerae nonicteric Neck: Supple, 2+ carotid pulse no bruit, No LAD, Without JVD or thyroid abnormality Respiratory: Clear to auscultation bilaterally, Normal air movement Cardiovascular: Regular rate/rhythm, Normal S1 S2 Gastrointestinal: Normal bowel sounds, No tenderness Musculoskeletal: No tenderness Integumentary: No rashes Neurological: Normal gait, Normal speech, Normal strength at 5/5 x4 extr, Normal tone, Normal affect Lymphatics: No axilla or inguinal lymphadenopathy - Diagnosis (Problem(s)) (1) CHF (congestive heart failure) Current Visit: Yes Status: Acute Qualifiers: Heart failure type: combined systolic and diastolic Heart failure chronicity: acute on chronic Qualified Code(s): I50.43 - Acute on chronic combined systolic (congestive) and diastolic (congestive) heart failure (2) COPD with acute exacerbation Current Visit: No Status: Acute (3) Shortness of breath Onset Date: 08/08/15 Current Visit: No Status: Acute (4) Afib Current Visit: Yes Status: Chronic Qualifiers: Atrial fibrillation type: chronic Qualified Code(s): I48.2 - Chronic atrial fibrillation (5) Hypothyroid Current Visit: Yes Status: Chronic (6) Alcohol abuse Current Visit: No Status: Chronic (7) Tobacco abuse Current Visit: No Status: Chronic Treatment Summary: Overall during the hospital stay patient remained stable Patient was initially admitted to the hospital for shortness of breath most likely secondary to multifactorial reasons. 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 Patient most likely had mild COPD exacerbation along with CHF exacerbation. Cardiology and pulmonology were consulted here. Patient was kept on duo nebs and steroids here in the hospital along with oxygen. Cardiology recommended the patient have discharge of his valsartan and be continued on his IV Lasix 40 mg. Which could be switched over to p.o. once patient shortness of breath does resolve. Pulmonology was also consulted here who agreed with the above mentioned plan. Patient then was discharged home once he started having improvement in his symptoms and was successfully weaned off of oxygen and was discharged on PO Lasix. Patient while here in the hospital had an echocardiogram done which was consistent with ejection fraction of 25% which is down from 29% 3 months ago. Patient was advised on abstinence from alcohol as it is making his ejection fraction worse than his heart to have for the worsening. Patient demonstrated understanding however did not appear to be receptive to education about alcohol abstinence. Patient's at bedside was also educated extensively and then was discharged home under stable condition. - Disposition Disposition: ROUTINE DISCHARGE Condition: GOOD Patient Discharge Instructions: Please f.u with PCP and Cardiology in 1 to 2 week post discharge. New medication. Lasix 40mg BID daily. Stop Taking Valsartan/HCTZ. You are to stop using alcohol all togather as it is making your CHF worse. Diet: Regular Activity: Ad amandeep
[2018-01-13] MEDS ORDERED: PNEUMOCOCCAL VACCINE 0.5 ML IMVAC ONE (15:00)
--- NOTE | 2018-01-13 15:19 | P.CNS ---
Date of Consult: 01/13/18 Reason for Consult: Shortness of breath Primary Care Provider: Dr. Nice - Cardiology Chief Complaint: Shortness of breath History of Present Illness: Patient is 62 years of a admitted with shortness of breath for the past 1 week patient is an active smoker use to smoke heavily before is normal read cardiac catheterization recently he is feeling better planning to be discharged. No prior history of COPD although he was prescribed a Symbicort inhaler usage on a p.r.n. basis any does help Allergies No Known Allergies Allergy (Verified 12/27/17 16:47) Home Medications: Cyanocobalamin (Vitamin B-12) [Vitamin B12] 5,000 mcg PO DAILY 08/08/15 Magnesium Oxide [Mag 0X*] 400 mg PO DAILY 08/08/15 Multivit-Min/FA/Lycopen/Lutein [Centrum Silver Tablet] 1 each PO DAILY 08/08/15 Simvastatin [Zocor*] 20 mg PO DAILY 08/08/15 Tramadol HCl [Ultram] 50 mg PO DAILY 08/08/15 Amiodarone HCl [Cordarone*] 200 mg PO DAILY 07/08/17 Potassium Chloride 20 meq PO DAILY 30 Days #30 tablet.er 07/09/17 Metoprolol Tartrate [Lopressor] 25 mg PO BID 01/12/18 Ranolazine [Ranexa] 500 mg PO BID 01/12/18 Rivaroxaban [Xarelto] 20 mg PO 1700 01/12/18 Thiamine HCl [Vitamin B-1] 250 mg PO DAILY 01/12/18 Thyroid,Pork [[place] Thyroid] 150 mg PO DAILY 01/12/18 Valsartan/Hydrochlorothiazide [Valsartan-Hctz 160-25 mg Tab] 1 each PO DAILY 10/24 - Past Medical/Surgical History Diabetic: No -: HTN -: Atrial fibrillation -: Dyslipidemia -: hypothyroid -: arthritis -: Right shoulder surgery - Family History Father Medical History: Heart disease Notes: of heart attack Mother Medical History: Cancer Notes: Pancreatic Brother Medical History: Diabetes Notes: Borderline - Social History Smoking Status: Current some day smoker Alcohol use: No CD- Drugs: No Caffeine use: Yes Place of Residence: Home Review of Systems 10-point ROS is otherwise unremarkable Physical Examination Temp Pulse Resp BP Pulse Ox 97.1 F 86 20 98/60 94 01/13/18 15:01 01/13/18 15:01 01/13/18 15:01 01/13/18 15:01 01/13/18 15:01 General: Alert, Oriented x3 Neck: Supple Respiratory: Clear to auscultation bilaterally Cardiovascular: No edema, Regular rate/rhythm Gastrointestinal: Normal bowel sounds, Soft and benign, Non-distended Conclusions/Impression: Patient is 62 years of age admitted with acute on chronic dyspnea presumed COPD vital signs are stable he is scheduled for ablation patient has renal insufficiency rate is currently controlled patient scheduled to follow up with me after the cardiac ablation he will need outpatient pulmonary function testing I have also advised him to uses Symbicort on a scheduled basis 1 or 2 puffs at least once or twice a day does not qualify for home O2 right now echocardiogram shows severe global hypokinesis with cardiomegaly recent cardiac catheterization was unremarkable presumptive alcoholic cardiomyopathy
--- NOTE | 2018-01-14 09:50 | CON ---
Date of Consultation: 01/13/[address] Garcia's service on 01/12/2018. Reason For Consultation: Congestive heart failure. History Of Present Illness: Mr. De Leon is a 62-year-old white male, very well known to me from pr evious office visits and admissions. My first encounter with him was few years ago when he developed alcoholic cardiomyopathy. He also had atrial fibrillation at that time that resolved after he becam e completely abstinent from alcohol. His ejection fraction went back to normal and his atrial fibril lation resolved. I believe about a year ago he went back to drinking, went back to atrial fibrillati on, went back to congestive heart failure. We had tried multiple medications for his atrial fibrilla tion including amiodarone, Bystolic, Betapace, cardioversion, and he is now set up for ablation next week by Dr. Hill at [facility]. He came in with CHF, PND, orthopnea, pedal edema. No palpi tation, no syncope. Denied any chest pain. Past Medical History: Includes atrial fibrillation, congestive heart failure, mild coronary artery d isease, hypertension, dyslipidemia, degenerative joint disease, and alcohol abuse. Allergies: NONE. Medications: At home include amiodarone, Ranexa, Xarelto, potassium, metoprolol, Zocor, valsartan, a nd HCT. Physical Examination: General: He appeared to be in no acute distress this morning. He had diuresed very well overnight. Vital Signs: Stable. He is in atrial fibrillation at a rate of about 110. HEENT: Negative. Neck: Supple without any JVD, thyromegaly, or bruit. Chest: Reveals rales both bases. Cardiac: Revealed atrial fibrillation. Abdomen: Benign. Extremities: Revealed 1+ edema. Diagnostic Data: His EKG showed atrial fibrillation. Laboratory Data: Creatinine is 1.8. Troponin is negative. His INR was 2.35. BNP was 9198. Echoca rdiogram that was done today showed ejection fraction about 25%. Impression And Plan: 1.Acute exacerbation of chronic systolic congestive heart failure. 2.Chronic obstructive pulmonary disease. 3.Atrial fibrillation. Planning to have an ablation next week. Continued on amiodarone, Xarelto, a nd metoprolol. 4.Mild coronary artery disease. Recent catheterization showed a completely occluded right coronary artery with moderate disease in the left anterior descending and collaterals to the distal right kait nary artery normal circumflex. We will continue present regimen. His dyslipidemia is well controlle d. He was instructed in details regarding his alcohol use. I am concerned about his renal insuffici ency and we will see how he does with the present regimen. I would like him to get off the valsartan and hydrochlorothiazide and start Lasix 40 mg b.i.d. He may be a candidate for Entresto, but again, the creatinine may be an issue. I am hoping when his atrial fibrillation resolves, his ejection fra ction gets better. If not, he should be considered for defibrillator. I will discuss the case [facility] with Dr. Hill. NIMISHA/ROSA Voice ID: [id number] Report ID: [id number]
== END 2018-01-13 15:33 | disposition home or self-care (01) ==
LOC: ER 09:27 → 4TH 12:20
PROVIDERS: ADMIT Family Medicine; ATTEND Family Medicine
DX: J44.1 Chronic obstructive pulmonary disease with (acute) exacerbation (principal); I11.0 Hypertensive heart disease with heart failure; I50.23 Acute on chronic systolic (congestive) heart failure; E03.9 Hypothyroidism, unspecified; E78.5 Hyperlipidemia, unspecified; I48.91 Unspecified atrial fibrillation; F10.10 Alcohol abuse, uncomplicated; I43 Cardiomyopathy in diseases classified elsewhere; I25.10 Atherosclerotic heart disease of native coronary artery without angina pectoris; F17.210 Nicotine dependence, cigarettes, uncomplicated; Z23 Encounter for immunization
CPT/HCPCS: 36415; 71045; 71250; 80048; 80053; 80076; 81003; 82550; 82553; 82805; 82962; 83735; 83880; 84484; 85025; 85610; 85730; 87070; 87077; 87186; 87205; 90670; 93005; 93306; 94760; 96374; 96375; 97163; 99285; G0009; G0378; J1650; J1940; J2930

== ENCOUNTER 2018-02-06 18:03 | Inpatient (IN) | payer BC, OTHER ==
--- OUTSIDE RECORDS SUMMARY | 2018-02-06 18:05 | XMS REPORT | Clinical Summary ---
:1955 Author Organization [facility] Address [address] [place] [address] Care Team Providers Name Role Phone Asked, No Pcp Primary Care Provider Unavailable Allergies No Known Allergies Current Medications Prescription Sig. Disp. Refills Start Date End Date Status simvastatin (ZOCOR) Take 20 mg by Active 20 MG tablet mouth nightly. traMADol (ULTRAM) 50 Take 50 mg by Active mg tablet mouth every 6 (six) hours as needed for moderate pain. potassium chloride Take 20 mEq by Active (K-DUR) 20 MEQ CR mouth 2 (two) tablet times a day. amIODarone (PACERONE) Take 200 mg by Active 200 MG tablet mouth daily. thyroid,pork (ARMOUR Take 105 mg by Active THYROID ORAL) mouth daily. rivaroxaban (XARELTO) Take 20 mg by Active 20 mg tablet mouth daily. multivit-min/FA/lycop Take by mouth Active en/lutein (CENTRUM daily. SILVER MEN ORAL) magnesium oxide Take 400 mg by Active (MAG-OX) 400 mg mouth daily. tablet cyanocobalamin Take 250 mcg by Active (VITAMIN B-12) 250 mouth daily. MCG tablet ranolazine (RANEXA) Take 500 mg by Active 500 MG 12 hr ER mouth 2 (two) tablet times a day. metoprolol tartrate Take 25 mg by Active (LOPRESSOR) 25 mg mouth 2 (two) tablet times a day. sucralfate (CARAFATE) Take 1 tablet 120 tablet 0 01/20/2018 02/19/2018 Active 1 gram tablet (1 g total) by mouth 4 (four) times a day before meals and nightly for 30 days. colchicine 0.6 mg Take 0.5 30 tablet 0 01/20/2018 02/19/2018 Active tablet tablets (0.3 mg total) by mouth 2 (two) times a day for 30 days. aspirin (ECOTRIN) 81 Take 1 tablet 30 tablet 0 01/20/2018 02/19/2018 Active MG enteric coated (81 mg total) tablet by mouth daily for 30 days. pantoprazole Take 1 tablet 60 tablet 0 01/20/2018 02/19/2018 Active (PROTONIX) 40 MG EC (40 mg total) tablet by mouth 2 (two) times a day for 30 days. furosemide (LASIX) 40 Take 1 tablet 60 tablet 0 01/20/2018 02/19/2018 Active mg tablet (40 mg total) by mouth 2 (two) times a day for 30 days. Then 40mg daily potassium chloride Take 2 tablets 20 tablet 0 01/20/2018 01/25/2018 (KLOR-CON) 10 MEQ CR (20 mEq total) tablet by mouth 2 (two) times a day for 5 days. Active Problems Problem Noted Date Persistent atrial fibrillation (HCC) 01/18/2018 Encounters Date Type Specialty Care Team Description 01/18/2018 - Hospital Encounter Cardiology Bon Hill MD Atrial 01/20/2018 fibrillation, persistent 01/18/2018 Anesthesia Event Procedural [facility] Ene CRNA 01/18/2018 Procedure Pass Procedural Cardiology 01/18/2018 Surgery Procedural Bon Hill MD Ep complete ep Cardiology study w ablation pulmonary vein [97969 (CPT)] after 02/05/2017 Immunizations Name Dates Previously Given Next Due FLUCELVAX QUAD PF (0.5mL syringe) 01/20/2018 Social History Tobacco Use Types Packs/Day Years Used Date Current Every Day Smoker Cigarettes Smokeless Tobacco: Never Used Alcohol Use Drinks/Week oz/Week Comments No Sex Assigned at Date Recorded Not on file Last Filed Vital Signs Vital Sign Reading Time Taken Blood Pressure 121/80 01/20/2018 12:12 PM CDT Pulse 71 01/20/2018 12:12 PM CDT Temperature 36.7 C (98 F) 01/20/2018 12:12 PM CDT Respiratory Rate 16 01/20/2018 12:12 PM CDT Oxygen Saturation 97% 01/20/2018 12:12 PM CDT Inhaled Oxygen Concentration - - Weight 92.6 kg (204 lb 2 oz) 01/20/2018 3:05 AM CDT Height 182.9 cm (6') 01/18/2018 6:44 AM CDT Body Mass Index 27.68 01/20/2018 3:05 AM CDT Plan of Treatment Health Maintenance Due Date Last Done Comments COLON CANCER SCREENING 2004 SHINGRIX VACCINE (#1) 2004 ZOSTER VACCINE 2014 INFLUENZA VACCINE Completed 01/20/2018 Procedures Procedure Name Priority Date/Time Associated Comments Diagnosis ESTIMATED GFR Routine 01/20/2018 4:00 AM Results for this CDT procedure are in the results section. MAGNESIUM LEVEL Routine 01/20/2018 4:00 AM Results for this CDT procedure are in the results section. BASIC METABOLIC Routine 01/20/2018 4:00 AM Results for this PANEL CDT procedure are in the results section. XR CHEST 1 VW Routine 01/19/2018 11:21 AM Results for this PORTABLE CDT procedure are in the results section. ESTIMATED GFR Routine 01/19/2018 5:30 AM Results for this CDT procedure are in the results section. BASIC METABOLIC Routine 01/19/2018 5:30 AM Results for this PANEL CDT procedure are in the results section. HC COMPLETE BLD Routine 01/19/2018 5:30 AM Results for this COUNT W/AUTO DIFF CDT procedure are in the results section. ECG 12-LEAD STAT 01/18/2018 3:17 PM Results for this CDT procedure are in the results section. EP COMPLETE EP STUDY Routine 01/18/2018 1:05 PM Atrial Results for this W ABLATION PULMONARY CDT fibrillation, procedure are in VEIN persistent the results section. ANESTHESIA Routine 01/18/2018 9:11 AM INTUBATION CDT Procedure Note - Tina Cruz Jr., MD - 01/18/2018 9:11 AM CDT Airway Date/Time: 01/18/2018 8:59 AM Performed by: ENE LAGUNAS Authorized by: TINA CRUZ JR. 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 Resident/MINE CAR REPAIRER/AA: EEN LAGUNAS Performed by: resident/MINE CAR REPAIRER/AA Preoxygenated with 100% O2: Yes C-spine Precautions Maintained Throughout: Yes Mask Ventilation: Easy mask Final Airway Type: Endotracheal airway Final Endotracheal Airway: ETT Cuffed: Yes Technique Used: Direct laryngoscopy Devices/Methods Used in Placement: Intubating stylet Insertion Site: Oral Blade Type: Carlton Laryngoscope Blade/Videolaryngoscope Blade Size: 2 ETT Size (mm): 8.0 Cuff at minimum occlusion pressure: Yes Measured from: Lips ETT to Lips (cm): 22 Placement Verified by: CO2 detection, direct visualization and equal breath sounds Laryngoscopic view: Grade I - full view of glottis Rapid Sequence Induction (RSI): No Modified RSI: No Number of Attempts at Approach: 1 ECG 12-LEAD STAT 01/18/2018 6:42 AM CDT ESTIMATED GFR STAT 01/18/2018 6:40 AM CDT PROTHROMBIN TIME WITH INR STAT 01/18/2018 6:40 AM CDT BASIC METABOLIC PANEL STAT 01/18/2018 6:40 AM CDT HC COMPLETE BLD COUNT W/AUTO STAT 01/18/2018 6:40 AM CDT Results for this procedure DIFF are in the results section. TYPE AND SCREEN STAT 01/18/2018 6:40 AM CDT after 02/05/2017 Results Estimated GFR (01/20/2018 4:00 AM)Only the most recent of3 resultswithin the time period is included. Estimated GFR 50 (A) mL/min/1.73 m2 [facility] DEPARTMENT OF Comment: PATHOLOGY AND GENOMIC CatergoryUnitsInterpretation MEDICINE G1 >=90 Normal or high G2 60-89Mildly decreased [id number] to moderately decreased Y1c38-89Mysxdxjyjn to severely decreased G4 15-29Severely decreased G5 <15Kidney failure The eGFR was calculated using the Chronic Kidney Disease Epidemiology Collaboration (CKD-EPI) equation. Interpretation is based on recommendations of the National Kidney Foundation-Kidney Disease Outcomes Quality Initiative (NKF-KDOQI) published in 2014. Specimen Plasma specimen Performing Organization Address City/State/Zipcode Phone Number [facility] DEPARTMENT OF PATHOLOGY AND [address] [place] [address] [employer] MEDICINE Magnesium level (01/20/2018 4:00 AM) Magnesium 2.2 1.6 - 2.4 mg/dL [facility] DEPARTMENT OF PATHOLOGY AND GENOMIC MEDICINE Specimen Plasma specimen Performing Organization Address City/[facility]/Zipcode Phone Number [facility] DEPARTMENT OF PATHOLOGY AND [address] [place] [address] GENOMIC MEDICINE Basic metabolic panel (01/20/2018 4:00 AM)Only the most recent of3 resultswithin the time period is included. Sodium 139 135 - 148 mEq/L [facility] DEPARTMENT OF PATHOLOGY AND GENOMIC MEDICINE Potassium 4.1 3.5 - 5.0 mEq/L [facility] DEPARTMENT OF PATHOLOGY AND GENOMIC MEDICINE Chloride 102 98 - 112 mEq/L [facility] DEPARTMENT OF PATHOLOGY AND GENOMIC MEDICINE CO2 24 24 - 31 mEq/L [facility] DEPARTMENT OF PATHOLOGY AND GENOMIC MEDICINE Anion gap 13@ANIO 7 - 15 mEq/L [facility] DEPARTMENT OF PATHOLOGY AND GENOMIC MEDICINE BUN 30 (H) 8 - 23 mg/dL [facility] DEPARTMENT OF PATHOLOGY AND GENOMIC MEDICINE Creatinine 1.46 (H) 0.70 - 1.20 mg/dL [facility] DEPARTMENT OF PATHOLOGY AND GENOMIC MEDICINE Glucose 100 (H) 65 - 99 mg/dL [facility] DEPARTMENT OF PATHOLOGY AND GENOMIC MEDICINE Calcium 8.5 (L) 8.8 - 10.2 mg/dL [facility] DEPARTMENT OF PATHOLOGY AND GENOMIC MEDICINE Specimen Plasma specimen Performing Organization Address City/[facility] Phone Number [facility] DEPARTMENT OF PATHOLOGY AND [address] [place] [address] [facility] MEDICINE XR Chest 1 Vw Portable (01/19/2018 11:21 AM) Narrative Performed At EXAMINATION:XR CHEST 1 VW PORTABLE [facility]IANT CLINICAL HISTORY:SOB COMPARISON:No priors IMPRESSION: Heart size is prominent. 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 Low lung volumes, with mild perihilar interstitial prominence, without acute consolidations. [facility]-[id number] Procedure Note Interface, Radiology Results Incoming - 01/19/2018 11:27 AM CDT EXAMINATION: XR CHEST 1 VW PORTABLE CLINICAL HISTORY: SOB COMPARISON: No priors IMPRESSION: Heart size is prominent. 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 Low lung volumes, with mild perihilar interstitial prominence, without acute consolidations. [facility]-[id number] Performing Organization Address City/[facility]/Zipcode Phone Number [facility] [address] [place] [address] CBC with platelet and differential (01/19/2018 5:30 AM)Only the most recent of2 resultswithin the time period is included. WBC 14.72 (H) 4.50 - 11.00 k/uL [facility] DEPARTMENT OF PATHOLOGY AND GENOMIC MEDICINE RBC 4.31 (L) 4.40 - 6.00 m/uL [facility] DEPARTMENT OF PATHOLOGY AND GENOMIC MEDICINE HGB 13.1 (L) 14.0 - 18.0 g/dL [facility] DEPARTMENT OF PATHOLOGY AND GENOMIC MEDICINE HCT 39.4 (L) 41.0 - 51.0 % [facility] DEPARTMENT OF PATHOLOGY AND GENOMIC MEDICINE MCV 91.4 82.0 - 100.0 fL [facility] DEPARTMENT OF PATHOLOGY AND GENOMIC MEDICINE MCH 30.4 27.0 - 34.0 pg [facility] DEPARTMENT OF PATHOLOGY AND GENOMIC MEDICINE MCHC 33.2 31.0 - 37.0 g/dL [facility] DEPARTMENT OF PATHOLOGY AND GENOMIC MEDICINE RDW - SD 49.4 37.0 - 55.0 fL [facility] DEPARTMENT OF PATHOLOGY AND GENOMIC MEDICINE MPV 11.4 8.8 - 13.2 fL [facility] DEPARTMENT OF PATHOLOGY AND GENOMIC MEDICINE Platelet count 186 150 - 400 k/uL [facility] DEPARTMENT OF PATHOLOGY AND GENOMIC MEDICINE Nucleated RBC 0.00 /100 WBC [facility] DEPARTMENT OF PATHOLOGY AND GENOMIC MEDICINE Neutrophils 83.7 (H) 39.0 - 69.0 % [facility] DEPARTMENT OF PATHOLOGY AND GENOMIC MEDICINE Lymphocytes 7.9 (L) 25.0 - 45.0 % [facility] DEPARTMENT OF PATHOLOGY AND GENOMIC MEDICINE Monocytes 7.3 0.0 - 10.0 % [facility] DEPARTMENT OF PATHOLOGY AND GENOMIC MEDICINE Eosinophils 0.5 0.0 - 5.0 % [facility] DEPARTMENT OF PATHOLOGY AND GENOMIC MEDICINE Basophils 0.1 0.0 - 1.0 % [facility] DEPARTMENT OF PATHOLOGY AND GENOMIC MEDICINE Immature granulocytes 0.5Comment: 0.0 - 1.0 % [facility] DEPARTMENT OF "Immature PATHOLOGY AND GENOMIC granulocytes" MEDICINE (promyelocytes, myelocytes, metamyelocytes) Specimen Blood Performing Organization Address City/State/Zipcode Phone Number [facility] DEPARTMENT OF PATHOLOGY AND [address] [place] [address] [employer] MEDICINE ECG 12 lead (01/18/2018 3:17 PM)Only the most recent of2 resultswithin the time period is included. Ventricular rate 65 [facility] Atrial rate 65 [facility] PA interval 176 [facility] QRSD interval 122 [facility] QT interval 470 [facility] QTC interval 488 [facility] P axis 1 59 [facility] QRS axis 1 60 [facility] MUSE T wave axis 141 [facility] MUSE EKG impression Normal sinus rhythm-Nonspecific intraventricular conduction delay-ST & T wave abnormality, consider anterolateral ischemia-Abnormal ECG-In automated comparison with ECG of 18-JAN-2018 06:42,-Sinus r [facility] MUSE hythm has replaced Atrial flutter-Nonspecific T wave abnormality, improved in Inferior leads-T wave inversion now evident in Anterior leads- : 26 AM Performing Organization Address City/State/Zipcode Phone Number [facility] MUSE [address] [place] [address] Cv electrophysiology procedure (01/18/2018 1:05 PM) Impressions Performed At -Empiric CTI ablation with bidirectional block (challenging anatomy) [facility] -Successful pulmonary veins isolation x4 with entrance and exit block -Successful PWI isolation -Significantly elevated LA pressures (35-40mmHg) and significantly decreased EF (10-15%) RECOMMENDATIONS: 1. Monitor on telemetry overnight 2. Bedrest for 4 hours after sheaths removal 3. Restart Xarelto tonight 4. Continue amiodarone 5-Start lasix 40mg IV Q8hrs 6. LifeVest on discharge Narrative Performed At DATE OF OPERATION: 01/18/2018 [facility] ARCHITECT: Bon Hill MD PREOPERATIVE DIAGNOSES: -Persistent atrial fibrillation -Dilated cardiomyopathy EF=35% -CAD with CM out of proportion to CAD -Prior history of alcohol abuse -Hypertension POSTOPERATIVE DIAGNOSES: -Persistent atrial fibrillation -Dilated cardiomyopathy EF=35% -CAD with CM out of proportion to CAD -Prior history of alcohol abuse -Hypertension PROCEDURES PERFORMED: -Ultrasound guided vascular access -Arterial line placement -Afib ablation with PVI and extrapulmonary ablation for PWI -CTI ablation -3D mapping -Stimulation after drug infusion -Intra cardiac echocardiography (ICE) COMPLICATIONS: None ESTIMATED BLOOD LOSS: <30cc HISTORY OF PRESENT ILLNESS: In brief, this is a 62 years old male with past medical history as above, with symptomatic persistent atrial fibrillation refractory to anti-arrhythmics (amiodarone) and worsening cardiomyopathy and SOB, all thought to be secondary to atrial fibrillation. He presents today for atrial fibrillation ablation. PROCEDURE IN DETAIL: Consent was obtained from the patient after a full explanation of the risks and benefits of the procedure. The patient was brought to the electrophysiology lab in the fasting state. The patient was prepared and draped in a sterile fashion. General anesthesia with intratracheal ventilation administered by the anesthesia service was used for the procedure. Esophageal temperature monitoring was performed throughout the case using CIRCA catheter. Patient presented to the EP lab in atrial fibrillation. Sheaths were placed using modified Seldinger technique. Three venous sheaths (8Fr, long 7Fr and long 9Fr sheath) were placed in the right femoral vein using ultrasound guidance without complication. One 4Fr arterial sheath was placed in the right femoral artery using ultrasound guidance without complication. A intracardiac echocardiography catheter (ICE) was inserted via the 9Fr sheath and advanced into the right atrium and the right ventricle. At baseline, there was no pericardial effusion and severely depressed EF (~10-15%). Using SOUND, the CTI, CS os, fossa, LPVs, RPVs were marked. The left atrium was noted to be significantly enlarged and measured at 6.6cm. The ICE catheter was later used to guide transseptal puncture and monitor for procedure complications. Next, the RFV 8Fr sheath was upgraded to a large curl Agilis sheath, through which a TechnoSpinTouch SF catheter, DF curve was advanced to the RA, and a Fast Anatomic Map (FAM) was done for the IVC, RA septum, fossa and SVC. A decapolar diagnostic catheter was then advanced into the coronary sinus. After cardioverting to NSR with 300J x1, we proceeded first with empiric CTI line ablation. After marking the His cloud on Carto 3D map, the catheter was advanced to the TV end of the line and an ablation line was performed from the TV back to the IVC with bidirectional block confirmed. CTI line was challenging because of the reverse-hat shape of the line. Next, we turned out attention to left sided access. After titrating heparin drip to achieve an ACT > 350 sec, transseptal puncture was performed with Wade long needle (requiring RF) using ICE guidance. Left (35mmHg) atrial pressure was measured to assess intracardiac filling pressures and noted to be significantly high.There were no complications.Following transseptal puncture, Agilis sheath was advanced into the LA, and the ablator was then exchanged to a F curve Pentarray catheter. A detailed 3D electroanatomical and voltage map was created while in sinus rhythm in the left atrium using CARTO mapping system. Mostly normal voltage was seen throughout. After exchanging the Pentarray to the ablation catheter, we proceeded to pulmonary veins isolation. The left pulmonary veins were circumferentially isolated as a common os using RF ablation.Left veins were isolated from the first pass. The right pulmonary veins were circumferentially isolated as a common os using RF ablation. The RPVs were isolated from the first pass. Prior to ablation of right sided veins, pacing was performed and right phrenic nerve course was avoided (PN was not captured despite giving him paralytics reversal agent).30-40 W for 30 sec and impedance drop of 10-15 ohms was targeted in the anterior sites. Posterior sites used 20 W for 8-15 sec, or more frequently high power, short duration lesions (40-50W for 4-5 secs) were used. Exit and entrance block was confirmed at all 4 veins.Posterior wall was then isolated with roof and floor line between the 2 PVs.Additional lesions were needed at the roof to achieve isolation. There was entrance and exit block to the posterior wall with no exit at high output pacing.The left and right pulmonary veins were confirmed to remain isolated. With Isuprel infusion up to 6mcg/min, no vein reconnection and non-PV trigger was seen.Higher dose of Isuprel was avoided because of his CAD, very low EF and very high LA pressure.CS burst pacing from 250ms to 180 msec during isuprel washout, no afib or organized AT/flutter was induced. Heparin was stopped and catheters were withdrawn into the RA and a CTI line was confirmed with bidirectional block. Transblock conduction time was 183msec. At this time case was ended. HV interval was measured at 60msec. Post-procedure ICE showed no pericardial effusion.At this time, GA was stopped and patient was extubated; No immediate complications. Protamine was given at the end of the procedure.Sheaths were pulled in the lab and figure of eight suture was placed. Patient was transferred to the PACU in a stable condition. Performing Organization Address City/State/Zipcode Phone Number [facility] [address] [place] [address] Prothrombin time with INR (01/18/2018 6:40 AM) Prothrombin time 15.4 (H) 12.0 - 15.0 sec [facility] DEPARTMENT OF PATHOLOGY AND GENOMIC MEDICINE INR 1.2 [facility] DEPARTMENT OF Comment: PATHOLOGY AND GENOMIC The International Normalized Ratio (INR) is a therapeutic MEDICINE monitoring tool for patients who are stable on oral anticoagulant therapy. An INR of 2.0-3.0 is suggested for deep vein thrombosis/pulmonary embolism. Specimen Blood Performing Organization Address City/[facility]/Zipcode Phone Number [facility] DEPARTMENT OF PATHOLOGY AND [address] [place] [phone] GENOMIC MEDICINE Type and screen (01/18/2018 6:40 AM) ABO grouping B [facility] DEPARTMENT OF PATHOLOGY AND GENOMIC MEDICINE Rh type POS [facility] DEPARTMENT OF PATHOLOGY AND GENOMIC MEDICINE Antibody screen (gel) NEG [facility] DEPARTMENT OF PATHOLOGY AND GENOMIC MEDICINE Specimen Blood Performing Organization Address City/[facility] Phone Number [facility] DEPARTMENT OF PATHOLOGY AND [address] [place] [phone] GENOMIC MEDICINE after 02/05/2017 Insurance Payer Benefit Plan / Group Subscriber ID Type Phone Address MEDICARE MEDICARE PART A AND B xxxxxxxxxxx Medicare [place], [place] BCBS BCBS OUT OF STATE xxxxxxxxxxxx PPO Home: [address] [place] [phone] [place], [place] [phone]
[2018-02-06] MEDS ORDERED: LEVALBUTEROL 1.25 MG/3 ML NEB ONE (18:58)
[2018-02-06 19:09] LABS: Absolute Lymphocytes (CBC) 0.5 K/uL (0.7-4.9); Absolute Monocytes 0.9 K/uL (0.1-1.3); Absolute Neutrophil 9.5 K/uL (1.8-8.0); Basophils % 2.8 % (0-1.3); Eosinophils % 0.3 % (0-4.4); Hematocrit 33.7 % (39.6-49.0); Lymphocytes % 4.4 % (15.3-44.8); MCH 30.5 pg (27.0-35.0); MCV 88.4 fL (80-100); MPV 9.5 fL (7.6-11.3); Monocytes % 7.8 % (3.3-12.3); RBC Red Blood Cell Count 3.81 M/uL (4.33-5.43)
[2018-02-06 19:28] LABS: Potassium 4.1 mmol/L (3.5-5.1); Troponin (Emerg Dept Use Only) 0.07 ng/mL (0.0-0.045)
[2018-02-06 19:32] LABS: Blood Morphology Comment NOT SEEN (NOT SEEN); Platelet Estimate ADEQ; Urine White Blood Cell Casts OK
--- NOTE | 2018-02-06 19:38 | EKG ---
Test Date: 2018-02-06 Test Time: 18:30:38 Electronic Scanner Operator: IVAN MEASUREMENT RESULTS: Intervals: Rate: 97 RI: 150 QRSD: 122 QT: 374 QTc: 474 [place]: P: 63 RI: 150 QRS: 83 T: 73 INTERPRETIVE STATEMENTS: Normal sinus rhythm Nonspecific intraventricular conduction delay Marked ST abnormality, possible inferior subendocardial injury Abnormal ECG Compared to ECG 01/12/2018 09:35:19 Intraventricular conduction delay now present Atrial fibrillation no longer present Myocardial infarct finding no longer present Possible ischemia no longer present ST (T wave) deviation still present Electronically Signed On 02-06-18 19:38:18 CDT by Terell Estrada
--- NOTE | 2018-02-06 20:18 | RAD REPORT ---
EXAM DESCRIPTION: CT - Thorax Wo Con - 02/06/2018 8:00 pm CLINICAL HISTORY: Chest pain, cough, hemoptysis COMPARISON: CT chest January 12 TECHNIQUE: Axial 5 mm thick images of the chest were obtained without IV contrast. All CT scans are performed using dose optimization technique as appropriate and may include automated exposure control or mA/KV adjustment according to patient size. FINDINGS: Moderately large area of consolidation is present in the inferior right upper lobe abuttin g the minor fissure. Air bronchograms are present. There is additional airspace consolidation in the both lower lobes and the lingula of the left upper lobe. No cavitation seen. No endobronchial lesion or underlying mass. No pleural thickening or pleural effusion. No pneumothorax. No abnormal mediastinal or hilar masses or lymphadenopathy seen. No gross aortic or pulmonary artery finding suspected. No pericardial thickening or effusion. Heart size is upper normal. No chest wall mass or abnormal axillary lymphadenopathy. IMPRESSION: Significant bilateral pneumonia changes are present with the largest area of consolidati on in the inferior aspect right upper lobe. No underlying endobronchial lesion or parenchymal mass.
--- NOTE | 2018-02-06 20:55 | RAD REPORT ---
EXAM DESCRIPTION: RAD - Chest Pa And Lat (2 Views) - 02/06/2018 8:16 pm CLINICAL HISTORY: Productive cough, hemoptysis COMPARISON: January 12 TECHNIQUE: PA and lateral views of the chest were obtained. FINDINGS: The lungs are normal volume. There is consolidation in the inferior aspect right upper lob e abutting the minor fissure. Additional interstitial and airspace opacification present in the lower right lung field in the mid left lung field. Heart size is upper normal. Pulmonary vasculature wit hin normal limits. No pleural effusion or pneumothorax seen. No acute bony finding noted. No aortic abnormality. IMPRESSION: Moderate right upper lobe pneumonia with small right lower lobe and left middle lung fie ld pneumonia.
--- NOTE | 2018-02-06 21:23 | ER ---
Nurse's Notes [facility] Name: Tad De Leon Age: 62 yrs Sex: Male : 1955 Arrival Date: 02/06/2018 Time: 18:05 Bed 5 Private MD: Out, [facility] Diagnosis: Acute dyspnea. Chest pain. Bilateral pneumonia Presentation: 02/06 18:16 Presenting complaint: Patient states: Productive cough with blood tinged sputum,chest hb pressure, pain with cough, and SOB x 1 week. Pt is 1 weeks s/p ablation for AFib. Transition of care: patient was not received from another setting of care. Onset of symptoms was February 06, 2018. Risk Assessment: Do you want to hurt yourself or someone else?. 18:16 Method Of Arrival: Ambulatory hb 18:16 Acuity: ANTONIO 2 hb 20:49 Initial Sepsis Screen: Does the patient meet any 2 criteria? RR > 20 per min. Does the lp1 patient have a suspected source of infection? Yes: Productive cough/pneumonia. Care prior to arrival: None. Historical: - Allergies: 18:19 No Known Allergies; hb - Home Meds: 18:20 amiodarone 200 mg Oral tab 1 tab once daily [Active]; [place] Thyroid 105 mg Oral daily hb [Active]; aspirin 81 mg Oral chew 1 tab once daily [Active]; Centrum Silver Oral daily [Active]; Fish Oil 1,000 mg Oral cap daily [Active]; magnesium oxide 400 mg Oral cap daily [Active]; meloxicam 15 mg Oral tab 1 tab once daily [Active]; simvastatin 20 mg Oral tab 1 tab once daily [Active]; simvastatin 20 mg Oral tab 1 tab once daily [Active]; tramadol 50 mg Oral tab daily [Active]; turmeric root extract Oral daily [Active]; Vitamin B-12 1,000 mcg Oral tab daily [Active]; Xarelto Oral [Active]; - PMHx: 18:19 Atrial Fib; Arthritis; High Cholesterol; Hypertension; Hypothyroidism; hb - PSHx: 18:20 Cardiac Cath; ablation; hb - Immunization history:: Adult Immunizations up to date. - Social history:: Smoking status: Patient/guardian denies using tobacco. - Ebola Screening: : No symptoms or risks identified at this time. Screenin:45 Abuse screen: Denies threats or abuse. Denies injuries from another. Nutritional sg screening: No deficits noted. Tuberculosis screening: No symptoms or risk factors identified. Never had TB. Fall Risk None identified. Assessment: 18:30 General: Appears in no apparent distress. uncomfortable, ill, well groomed, well sg developed, well nourished, Behavior is calm, cooperative, appropriate for age. Pain: Denies pain. Neuro: Level of Consciousness is awake, alert, obeys commands, Oriented to person, place, time, situation, Speech is normal, Facial symmetry appears normal. Cardiovascular: Heart tones S1 S2 present. Respiratory: Airway is patent Respiratory effort is even, labored, shallow, Respiratory pattern is regular, tachypnea Breath sounds with crackles Breath sounds with wheezes. Respiratory: Reports cough that is productive. GI: Abdomen is round non-distended. : No signs and/or symptoms were reported regarding the genitourinary system. EENT: No signs and/or symptoms were reported regarding the EENT system. Derm: Skin is pink, warm \T\ dry. Musculoskeletal: No signs and/or symptoms reported regarding the musculoskeletal system. 19:00 Reassessment: Patient appears in no apparent distress at this time. Patient and/or sg family updated on plan of care and expected duration. Pain level reassessed. Patient is alert, oriented x 3, equal unlabored respirations, skin warm/dry/pink. 19:45 General: Appears ill. Pain: Denies pain. Neuro: Level of Consciousness is awake, alert, lp1 obeys commands, Oriented to person, place, time, situation. Cardiovascular: Heart tones present wearing external defibrillator. Rhythm is sinus rhythm. Respiratory: Reports shortness of breath at rest cough that is Respiratory effort is even, Respiratory pattern is regular, Breath sounds are diminished bilaterally. Onset: The symptoms/episode began/occurred gradually, the patient has moderate shortness of breath. Derm: Skin is intact, Skin is clammy, Skin is normal. 20:48 Reassessment: Patient returned from CT at this time; understands plan of care from 1 provider. 21:43 Reassessment: Dr. Orona at bedside. 1 Vital Signs: 18:20 BP 108 / 78; Pulse 97; Resp 16; Temp 99.7(TE); Pulse Ox 91% on R/A; Pain 8/10; hb 20:47 BP 98 / 56; Pulse 80; Resp 24; Pulse Ox 96% on 2 lpm NC; lp1 21:43 BP 103 / 68; Pulse 75; Resp 21; Pulse Ox 97% on 2 lpm NC; lp1 21:54 Temp 99(O); lp1 22:05 BP 114 / 61; Pulse 70; Resp 24; Pulse Ox 96% on 2 lpm NC; lp1 ED Course: 18:05 Patient arrived in ED. sb2 18:06 Out, of Town is Private Physician. sb2 18:18 Triage completed. hb 18:21 Arm band placed on left wrist. hb 18:30 Initial lab(s) drawn, by me, sent to lab. First set of blood cultures drawn by me. sg Inserted saline lock: 20 gauge in right forearm, using aseptic technique. Blood collected. 18:34 EKG done, by ED staff, reviewed by Reuben Lackey MD. em1 18:45 Second set of blood cultures drawn by me. sg 19:35 Mathieu Tena MD is Attending Physician. pkl 19:45 Patient has correct armband on for positive identification. Placed in gown. Bed in low lp1 position. Call light in reach. equipment monitor phototypesetting on. Pulse ox on. NIBP on. 19:45 Flu and/or RSV swab sent to lab. lp1 20:00 Thorax Wo Con In Process Unspecified. EDMS 20:08 Irma Bucio, AIDEE is Primary Nurse. lp1 20:13 XRAY Chest Pa And Lat (2 Views) In Process Unspecified. EDMS 21:21 Giovanny Orona MD is Hospitalizing Provider. pkl 21:43 No provider procedures requiring assistance completed. Patient admitted, IV remains in lp1 place. Administered Medications: 18:57 Drug: Xopenex (3) 1.25 mg Route: Inhalation; sg Outcome: 21:22 Decision to Hospitalize by Provider. pkl 21:44 Condition: stable lp1 21:44 Instructed on the need for admit. 22:06 Admitted to Med/surg accompanied by tech, via stretcher, room 215, with oxygen, with lp1 chart, Report called to AIDEE Jarquin 22:17 Patient left the ED. lp1 Signatures: Dispatcher [employer] Freedom Atkins RN RN sg Lam, Pin, MD MD pkl Wyatt Crews1 Irma Bucio RN RN lp1 Michelle Lowry RN RN Leann Whitten sb2 Corrections: (The following items were deleted from the chart) 20:48 19:45 Respiratory: Reports shortness of breath at rest cough that is Respiratory effort lp1 is even, Respiratory pattern is regular, Breath sounds are diminished bilaterally. lp1 20:52 19:45 Respiratory: Reports shortness of breath at rest cough that is Respiratory effort lp1 is even, Respiratory pattern is regular, Breath sounds are diminished bilaterally. the patient has moderate shortness of breath lp1 22:00 19:45 Cardiovascular: Heart tones present Rhythm is sinus rhythm lp1 lp1 22:17 22:01 Reassessment: Attempted to call report at this time lp1 lp1
--- NOTE | 2018-02-06 21:23 | EDPHYS ---
Physician Documentation [facility] Name: Tad De Leon Age: 62 yrs Sex: Male : 1955 Arrival Date: 02/06/2018 Time: 18:05 Bed 5 Private MD: Out, [facility] ED Physician Mathieu Tena HPI: 02/06 19:51 This 62 yrs old Male presents to ER via Ambulatory with complaints of pkl Breathing Difficulty. 19:51 The patient has shortness of breath at rest. Onset: The symptoms/episode began/occurred pkl 1 week(s) ago. Associated signs and symptoms: Pertinent positives: chest pain, productive cough. S/P ablation for A. Fib 3 weeks ago. Historical: - Allergies: 18:19 No Known Allergies; hb - Home Meds: 18:20 amiodarone 200 mg Oral tab 1 tab once daily [Active]; [place] Thyroid 105 mg Oral daily hb [Active]; aspirin 81 mg Oral chew 1 tab once daily [Active]; Centrum Silver Oral daily [Active]; Fish Oil 1,000 mg Oral cap daily [Active]; magnesium oxide 400 mg Oral cap daily [Active]; meloxicam 15 mg Oral tab 1 tab once daily [Active]; simvastatin 20 mg Oral tab 1 tab once daily [Active]; simvastatin 20 mg Oral tab 1 tab once daily [Active]; tramadol 50 mg Oral tab daily [Active]; turmeric root extract Oral daily [Active]; Vitamin B-12 1,000 mcg Oral tab daily [Active]; Xarelto Oral [Active]; - PMHx: 18:19 Atrial Fib; Arthritis; High Cholesterol; Hypertension; Hypothyroidism; hb - PSHx: 18:20 Cardiac Cath; ablation; hb - Immunization history:: Adult Immunizations up to date. - Social history:: Smoking status: Patient/guardian denies using tobacco. - Ebola Screening: : No symptoms or risks identified at this time. ROS: 19:51 Eyes: Negative for injury, pain, redness, and discharge, ENT: Negative for injury, pkl pain, and discharge, Neck: Negative for injury, pain, and swelling. 19:51 Cardiovascular: Positive for chest pain. 19:51 Respiratory: Positive for cough, blood tinged sputum, shortness of breath. 19:51 Abdomen/GI: Negative for abdominal pain, nausea, vomiting, and diarrhea. 19:51 Back: Negative for acute changes. 19:51 : Negative for urinary symptoms. 19:51 MS/extremity: Negative for acute changes. 19:51 Skin: Negative for rash. 19:51 Neuro: Negative for altered mental status. Exam: 19:51 Head/Face: Normocephalic, atraumatic. Eyes: Pupils equal round and reactive to light, pkl extra-ocular motions intact. Lids and lashes normal. Conjunctiva and sclera are non-icteric and not injected. Cornea within normal limits. Periorbital areas with no swelling, redness, or edema. ENT: Nares patent. No nasal discharge, no septal abnormalities noted. Tympanic membranes are normal and external auditory canals are clear. Oropharynx with no redness, swelling, or masses, exudates, or evidence of obstruction, uvula midline. Mucous membranes moist. Neck: Trachea midline, no thyromegaly or masses palpated, and no cervical lymphadenopathy. Supple, full range of motion without nuchal rigidity, or vertebral point tenderness. No Meningismus. Chest/axilla: Normal chest wall appearance and motion. Nontender with no deformity. No lesions are appreciated. Cardiovascular: Regular rate and rhythm with a normal S1 and S2. No gallops, murmurs, or rubs. Normal PMI, no JVD. No pulse deficits. 19:51 Respiratory: the patient does not display signs of respiratory distress, Respirations: normal, Breath sounds: rales, that are mild, are scattered. 19:51 Abdomen/GI: Exam negative for acute changes. 19:51 Back: Exam negative for acute changes. 19:51 : Exam negative for acute changes. 19:51 Musculoskeletal/extremity: Exam is negative for acute changes. 19:51 Skin: Exam negative for rash. 19:51 Neuro: Orientation: is normal, Mentation: is normal, Cranial nerves: grossly normal, Motor: is normal. Vital Signs: 18:20 BP 108 / 78; Pulse 97; Resp 16; Temp 99.7(TE); Pulse Ox 91% on R/A; Pain 8/10; hb 20:47 BP 98 / 56; Pulse 80; Resp 24; Pulse Ox 96% on 2 lpm NC; lp1 21:43 BP 103 / 68; Pulse 75; Resp 21; Pulse Ox 97% on 2 lpm NC; lp1 21:54 Temp 99(O); lp1 22:05 BP 114 / 61; Pulse 70; Resp 24; Pulse Ox 96% on 2 lpm NC; lp1 MDM: 18:42 Patient medically screened. rn 21:01 Data reviewed: vital signs, nurses notes, lab test result(s), EKG, radiologic studies, pkl CT scan, plain films. 21:22 Patient medically screened. pkl 02/06 18:41 Order name: Blood Culture Adult (2) rn 02/06 18:41 Order name: BMP; Complete Time: 20:33 rn 02/06 18:41 Order name: CBC with Diff; Complete Time: 20:33 rn 02/06 18:41 Order name: NT PRO-BNP; Complete Time: 20:33 rn 02/06 18:41 Order name: Troponin (emerg Dept Use Only); Complete Time: 20:33 rn 02/06 18:41 Order name: Procalcitonin; Complete Time: 20:33 rn 02/06 18:41 Order name: XRAY Chest Pa And Lat (2 Views); Complete Time: 23:11 rn 02/06 18:41 Order name: EKG; Complete Time: 18:42 rn 02/06 18:43 Order name: Flu; Complete Time: 20:55 rn 02/06 19:15 Order name: CBC Smear Scan; Complete Time: 20:33 EDMS 02/06 19:54 Order name: Thorax Wo Con; Complete Time: 20:33 EDMS 02/06 20:55 Order name: ABG; Complete Time: 23:11 pkl 02/06 18:41 Order name: Cardiac monitoring; Complete Time: 18:51 rn 02/06 18:41 Order name: EKG - Nurse/Tech; Complete Time: 18:57 rn 02/06 18:41 Order name: IV Saline Lock; Complete Time: 18:51 rn 02/06 18:41 Order name: Labs collected and sent; Complete Time: 18:51 rn 02/06 18:41 Order name: O2 Per Protocol; Complete Time: 18:51 rn 02/06 18:41 Order name: O2 Sat Monitoring; Complete Time: 18:51 rn Administered Medications: 18:57 Drug: Xopenex (3) 1.25 mg Route: Inhalation; sg Disposition: 02/06/18 21:22 Hospitalization ordered by Giovanny Orona for Inpatient Admission. Preliminary diagnosis is Acute dyspnea. Chest pain. Bilateral pneumonia. - Bed requested for Telemetry/MedSurg (Inpatient). - Status is Inpatient Admission. lp1 - Condition is Stable. - Problem is new. - Symptoms are unchanged. UTI on Admission? No Signatures: Dispatcher [employer] EDMD Sharmin Diaz RN RN Freedom Lundberg RN AIDEE Mathieu Tnea MD MD pk Reuben Lackey MD MD rn Pena, Laura, RN RN [facility] Michelle Lowry RN RN Corrections: (The following items were deleted from the chart) 19:54 18:42 Chest For PE Angio+CT.RAD.BRZ ordered. [facility] 21:47 21:22 Hospitalization Ordered by Giovanny Orona MD for Inpatient Admission. Preliminary diagnosis is Acute dyspnea. Chest pain. Bilateral pneumonia. Bed requested for Telemetry/MedSurg (Inpatient). Status is Inpatient Admission. Condition is Stable. Problem is new. Symptoms are unchanged. UTI on Admission? No. pkl 22:17 21:47 02/06/2018 21:22 Hospitalization Ordered by Giovanny Orona MD for Inpatient lp1 Admission. Preliminary diagnosis is Acute dyspnea. Chest pain. Bilateral pneumonia. Bed requested for Telemetry/MedSurg (Inpatient). Status is Inpatient Admission. Condition is Stable. Problem is new. Symptoms are unchanged. UTI on Admission? No. mw
[2018-02-06 21:26] LABS: Arterial Blood Carboxyhemoglob 1.5 % (0-1.5); Blood Gas Oxyhemoglobin 88.5 % (94-97); Blood O2 Saturation 90.7 % (92-98.5)
[2018-02-06] MEDS ORDERED: ACETAMINOPHEN 650MG/RECT SUPP RECT PRN (22:09)
[2018-02-06] MEDS ORDERED: ACETAMINOPHEN 500 MG TAB PO PRN (22:09)
--- NOTE | 2018-02-06 22:12 | P.HP ---
Certification for Inpatient Patient admitted to: Inpatient With expected LOS: >2 Midnights Practitioner: I am a practitioner with admitting privileges, knowledge of patient current condition, hospital course, and medical plan of care. Services: Services provided to patient in accordance with Admission requirements found in Title 42 Section 412.3 of the Code of Federal Regulations Patient History Date of Service: 02/06/18 Reason for admission: pneumonia History of Present Illness: Mr De Leon is a 62-year-old male with history of alcoholic dilated cardiomyopathy, mild coronary artery disease, CKD, hypothyroidism, tobacco abuse , who about 3 weeks ago had an ablation done due to chronic atrial fibrillation. After the procedure, the patient developed productive cough, initially with yellowish secretions, and lately bloody secretions. He verbally has had more shortness of breath. He denied any fever or chills. He states that he quit smoking about 2 weeks ago, and he is not drinking alcohol either. The patient is wearing a life vest. Last echocardiogram done last month shows severe LV dysfunction with EF estimated at 23%. Chest-x-ray and CT of the chest done in ER where remarkable for bilateral infiltrate consistent with pneumonia. Temperature in ER was 99.7 F. lab work remarkable for leukocytosis 11.2 K, however normal procalcitonin level. ABG shows respiratory alkalosis with hypercapnia and hypoxemia, he is on treatment with Xarelto already. Allergies No Known Allergies Allergy (Verified 12/27/17 16:47) Home medications list reviewed: Yes Home Medications: Cyanocobalamin (Vitamin B-12) [Vitamin B12] 5,000 mcg PO DAILY 08/08/15 Magnesium Oxide [Mag 0X*] 400 mg PO DAILY 08/08/15 Multivit-Min/FA/Lycopen/Lutein [Centrum Silver Tablet] 1 each PO DAILY 08/08/15 Simvastatin [Zocor*] 20 mg PO DAILY 08/08/15 Tramadol HCl [Ultram] 50 mg PO DAILY 08/08/15 Amiodarone HCl [Cordarone*] 200 mg PO DAILY 07/08/17 Potassium Chloride 20 meq PO DAILY 30 Days #30 tablet.er 07/09/17 Metoprolol Tartrate [Lopressor] 25 mg PO BID 01/12/18 Ranolazine [Ranexa] 500 mg PO BID 01/12/18 Rivaroxaban [Xarelto] 20 mg PO 1700 01/12/18 Thiamine HCl [Vitamin B-1] 250 mg PO DAILY 01/12/18 Thyroid,Pork [[place] Thyroid] 150 mg PO DAILY 01/12/18 Valsartan/Hydrochlorothiazide [Valsartan-Hctz 160-25 mg Tab] 1 each PO DAILY 10/24 - Past Medical/Surgical History Diabetic: No -: HTN -: Atrial fibrillation -: Dyslipidemia -: hypothyroid -: arthritis -: Right shoulder surgery -: Atrial fibrillation ablation - Family History Father -: Heart disease Notes: of heart attack Mother -: Cancer Notes: Pancreatic Brother -: Diabetes Notes: Borderline - Social History Smoking Status: Current some day smoker Counseled patient to stop smoking for: less than 10 minutes Alcohol use: No CD- Drugs: No Caffeine use: Yes Place of Residence: Home Review of Systems 10-point ROS is otherwise unremarkable Physical Examination - Physical Exam General: Alert, In no apparent distress HEENT: Atraumatic, PERRLA, Mucous membr. moist/pink, EOMI, Sclerae nonicteric Neck: Supple, 2+ carotid pulse no bruit, No LAD, Without JVD or thyroid abnormality Respiratory: Diminished, Crackles/rales (Bibasilar rales) Cardiovascular: Regular rate/rhythm, Normal S1 S2 Gastrointestinal: Normal bowel sounds, No tenderness Musculoskeletal: No tenderness Integumentary: No rashes Neurological: Normal speech, Normal strength at 5/5 x4 extr, Normal tone, Normal affect Lymphatics: No axilla or inguinal lymphadenopathy - Studies Laboratory Data (last 24 hrs) 02/06/18 18:30: WBC 11.2 H, Hgb 11.6 L, Hct 33.7 L, Plt Count 242 02/06/18 18:30: Sodium 136, Potassium 4.1, BUN 22 H, Creatinine 1.50 H, Glucose 129 H Microbiology Data (last 24 hrs): 02/06/18 19:45 Nasopharnyx Influenza Type A Antigen Screen - Final 02/06/18 19:45 Nasopharnyx Influenza Type B Antigen Screen - Final Assessment and Plan - Problems (Diagnosis) (1) Acute respiratory failure Current Visit: Yes Status: Acute Qualifiers: Respiratory failure complication: hypoxia Qualified Code(s): J96.01 - Acute respiratory failure with hypoxia (2) COPD with acute exacerbation Onset Date: 01/13/18 Current Visit: No Status: Acute (3) Pneumonia Onset Date: 08/08/15 Current Visit: No Status: Acute Qualifiers: Pneumonia type: due to unspecified organism Laterality: bilateral Lung location: unspecified part of lung Qualified Code(s): J18.9 - Pneumonia, unspecified organism (4) Shortness of breath Onset Date: 08/08/15 Current Visit: No Status: Acute (5) Hypothyroid Onset Date: 01/13/18 Current Visit: No Status: Chronic Qualifiers: Hypothyroidism type: unspecified Qualified Code(s): E03.9 - Hypothyroidism , unspecified (6) Tobacco abuse Onset Date: 01/13/18 Current Visit: No Status: Chronic - Plan The patient will be admitted to the hospital to acute respiratory failure. Differential diagnosis includes COPD exacerbation due to bilateral pneumonia associated with acute on chronic systolic CHF. Despite the patient is on Xarelto treatment, he has signs and symptoms consistent with possible PE ( respiratory alkalosis, hypoxemia and hypercapnia, bloody sputum) due to his CKD , CTA of the chest would be contraindicated. Will order a V/Q scan to be done in the morning. Will start empiric antibiotic treatment for bilateral pneumonia , potentially hospital-acquired due to his recent hospitalization. Consult executive housekeeper for evaluation recommendation. - Advance Directives Does patient have a Living Will: Yes Does patient have a Durable POA for Healthcare: No - Code Status/Comfort Care Code Status Assessed: Yes Code Status: Full Code
[2018-02-06] MEDS ORDERED: VANCOMYCIN 2.5 GM in NA CHLORIDE 0.9% 500 ML IVPB ONE (23:00)
[2018-02-06] MEDS: FUROSEMIDE 40 MG/4 ML VIAL IV SCH (23:23)
[2018-02-07] MEDS ORDERED: VANCOMYCIN 1 GM/VIAL ONE
[2018-02-07] MEDS ORDERED: NA CHLORIDE 0.9% 500 ML ONE (00:01)
[2018-02-07] MEDS ORDERED: VANCOMYCIN 500 MG/VIAL ONE (00:02)
[2018-02-07] MEDS ORDERED: PIPERACIL/TAZO 4.5 GM VIAL IV ONE ×2 (00:04→05:38)
[2018-02-07] MEDS ORDERED: NA CHLORIDE 0.9% 100 ML ONE ×2 (00:05→05:40)
[2018-02-07] MEDS: IPRATROPIUM BROM 0.5MG/2.5ML NEB PRN ×2 (01:11→11:00)
[2018-02-07] MEDS: ALBUTEROL 2.5 MG/3 ML NEB SOL NEB PRN ×2 (01:11→11:00)
[2018-02-07 04:09] LABS: Urine Appearance CLEAR; Urine Bilirubin NEGATIVE (NEG); Urine Blood NEGATIVE (NEG); Urine Color YELLOW; Urine Glucose NEGATIVE (NEG); Urine Protein NEGATIVE (NEG); Urine pH 6.5 (5.0-7.0)
[2018-02-07 04:10] LABS: Urine Microscopic Reflex NO UMIC
[2018-02-07 05:15] LABS: Absolute Lymphocytes (CBC) 0.9 K/uL (0.7-4.9); Absolute Monocytes 0.8 K/uL (0.1-1.3); Absolute Neutrophil 7.8 K/uL (1.8-8.0); Basophils % 0.3 % (0-1.3); Eosinophils % 0.1 % (0-4.4); Hematocrit 31.4 % (39.6-49.0); Lymphocytes % 9.1 % (15.3-44.8); MCV 89.4 fL (80-100); MPV 9.5 fL (7.6-11.3); Monocytes % 8.3 % (3.3-12.3); RBC Red Blood Cell Count 3.51 M/uL (4.33-5.43)
[2018-02-07 05:38] LABS: Magnesium 1.9 mg/dL (1.8-2.4); Potassium 3.7 mmol/L (3.5-5.1)
[2018-02-07] MEDS: PIPER/TAZO/NS 4.5gm 4.5 GM/100 ML BAG IVPB SCH ×3 (05:49→12:13)
[2018-02-07] MEDS ORDERED: POTASSIUM CL SA 10 MEQ TAB PO ONE (06:07)
[2018-02-07] MEDS: FUROSEMIDE 40 MG/4 ML VIAL IV SCH (08:29)
[2018-02-07] MEDS: THYROID 30 MG TAB PO SCH (08:29)
[2018-02-07] MEDS: AMIODARONE HCL 200 MG TAB PO SCH (08:29)
[2018-02-07] MEDS ORDERED: VANCOMYCIN 1 GM in NA CHLORIDE 0.9% 500 ML IVPB SCH (09:00)
[2018-02-07] MEDS ORDERED: ENOXAPARIN 40 MG/0.4 ML SQ SCH (09:00)
[2018-02-07] MEDS: GUAIFENESIN/CODEINE 5ML UCUP PO PRN ×2 (09:04→17:06)
[2018-02-07] MEDS: POTASSIUM CL SA 10 MEQ TAB PO SCH (09:04)
[2018-02-07] MEDS: METOPROLOL XL 25 MG TAB PO SCH ×2 (09:04→21:00)
--- NOTE | 2018-02-07 09:28 | RAD REPORT ---
EXAM DESCRIPTION: NM - Vent Perfusion VQ Scan - 02/07/2018 8:28 am CLINICAL HISTORY: Chest pain COMPARISON: February 06, 2018 CT chest TECHNIQUE: Twenty-two Mci Xe133 was administered by inhalation. First breath, equilibrium, and washout images of the lungs were taken 7 millicuries Technetium-99 MAA was administered intravenously. Anterior, posterior, lateral and obli que views of the lungs were taken. FINDINGS: Moderate defects are present within the right upper and right lower lobes on ventilation i mages which are matched on perfusion images. A small defect is present within the superior left upper lobe on ventilation and perfusion images whi ch is matched. No mismatched lobar or segmental perfusion defects are seen IMPRESSION: Matched perfusion defects probably indicate pneumonia No evidence of a pulmonary embolism
--- NOTE | 2018-02-07 12:30 | P.CNS ---
Date of Consult: 02/07/18 Reason for Consult: Bilateral pneumonia Chief Complaint: pneumonia History of Present Illness: Patient is 62 years of age has been sick for about 3 weeks complaining of cough congestion worsening dyspnea and some hemoptysis admitted with a diagnosis of bilateral pneumonia no prior history of pulmonary complaints he just recently had a cardiac ablation done in [place] light smoker feeling somewhat better denies any chest pain no lower extremity edema Allergies No Known Allergies Allergy (Verified 02/06/18 22:29) Home Medications: Amiodarone HCl [Cordarone Tab] 200 mg PO DAILY 02/06/18 Metoprolol Succinate [Toprol Xl] 25 mg PO BID 02/06/18 Potassium Chloride [Klor-Con M20] 20 meq PO DAILY 02/06/18 Ranolazine [Ranexa] 500 mg PO BID 02/06/18 Rivaroxaban [Xarelto] 20 mg PO DAILY 02/06/18 Simvastatin [Zocor] 20 mg PO DAILY 02/06/18 Thyroid,Pork [[place] Thyroid] 115 mg PO DAILY 02/06/18 traMADol HCL [Ultram*] 50 mg PO TID PRN 02/06/18 - Past Medical/Surgical History Diabetic: No -: HTN -: Atrial fibrillation -: Dyslipidemia -: hypothyroid -: arthritis -: Right shoulder surgery -: Atrial fibrillation ablation - Family History Father Medical History: Heart disease Notes: of heart attack Mother Medical History: Cancer Notes: Pancreatic Brother Medical History: Diabetes Notes: Borderline - Social History Smoking Status: Current some day smoker Alcohol use: No CD- Drugs: No Caffeine use: No Place of Residence: Home Review of Systems 10-point ROS is otherwise unremarkable General: Weakness Respiratory: Cough, Shortness of Breath, Hemoptysis Physical Examination Temp Pulse Resp BP Pulse Ox 98.6 F 88 28 H 113/70 98 02/07/18 08:00 02/07/18 08:00 02/07/18 08:00 02/07/18 08:00 02/07/18 08:00 General: Alert, Oriented x3 HEENT: Atraumatic Neck: Supple Respiratory: Crackles/rales (Right greater than left) Cardiovascular: No edema, Normal S1 S2, Abnormal S3 Laboratory Data (last 24 hrs) 02/06/18 18:30: WBC 11.2 H, Hgb 11.6 L, Hct 33.7 L, Plt Count 242 02/06/18 18:30: Sodium 136, Potassium 4.1, BUN 22 H, Creatinine 1.50 H, Glucose 129 H - Problems (1) PNA (pneumonia) Onset Date: 02/07/18 Current Visit: Yes Status: Acute Plan: Patient is 62 years of age has been sick for 3 weeks admitted with bilateral pneumonia does have renal insufficiency elevated BNP patient was hypoxic with respiratory alkalosis mild normocytic anemia mildly elevated white count saturation 96% on 2 L patient is clinically doing better change management specialist to p.o. levofloxacin he may have underlying obstructive airways disease I have added a bronchodilator patient is abnormal kidney function is monitor possible discharge tomorrow on levofloxacin 750 mg daily for 7 days and a prescription for Advair follow with me in 2 weeks Qualifiers: Pneumonia type: due to unspecified organism Laterality: bilateral
[2018-02-07] MEDS ORDERED: Levofloxacin 750mg IV 750 MG/150 ML BAG IV SCH (13:00)
[2018-02-07] MEDS ORDERED: ALBUTEROL 2.5 MG/3 ML NEB SOL NEB SCH (14:00)
[2018-02-07] MEDS: IPRATROPIUM BROM 0.5MG/2.5ML NEB SCH ×2 (14:12→19:43)
[2018-02-07] MEDS ORDERED: RIVAROXABAN 20 MG TABLET PO SCH (17:00)
[2018-02-07] MEDS ORDERED: RIVAROXABAN 10 MG TABLET PO SCH (17:00)
--- NOTE | 2018-02-07 19:34 | PN ---
Date of Progress Note: 02/07/2018 History: The patient seen and examined. Chart reviewed and case discussed with RN. The patient still having significant amount of cough and sputum production. Family at the bedside. Treatment plan explained. All questions answered. Review of Systems: Negative except as above. Medications: List reviewed. Physical Examination: Vital Signs: Temperature 98.6, heart rate 88, blood pressure 113/70, respirations 28, O2 98% on 2 L via nasal cannula. General: Awake, alert, oriented x3, in some mild distress, appears older than stated age, ill-appearing male. CV: S1, S2. No murmurs. Peripheral pulses present. Regular rate and rhythm. Respiratory: Diminished breath sounds. Some rhonchi heard. The patient is tachypneic. No use of accessory muscles. Gastrointestinal: Abdomen is soft, nontender, nondistended. Positive bowel sounds. No guarding or rigidity. Extremities: No clubbing, cyanosis, or edema. Neurologic: Nonfocal. Laboratory Data: Sodium 138, potassium 3.7, chloride 102, CO2 28, BUN 24, creatinine 1.6, glucose 110, calcium 8.2, magnesium 1.9. Troponin 0.22 up from 0.07. WBC 9.5, H and H 10.5, 31.4, platelets 219, neutrophils 82%. Sputum culture pending. Blood cultures are also pending. Influenza screen is negative. Assessment: A 62-year-old male with: 1. Acute respiratory distress with hypoxia, currently on supplemental oxygen secondary to chronic obstructive pulmonary disease and pneumonia. 2. Acute chronic obstructive pulmonary disease exacerbation. We will continue with nebulizer treatments and steroids. Appreciate Pulmonology input. 3. Bilateral pneumonia. Antibiotics have been switched over to p.o. Levaquin. Pulmonology on board. We will continue to monitor. The patient continues to have significant symptoms of cough, shortness of breath, and sputum production. 4. Hypothyroidism. Continue Synthroid. 5. Nicotine dependence with cigarette smoking. The patient recently quit. 6. Mixed hyperlipidemia. Continue statin. 7. Atrial fibrillation, paroxysmal, on Xarelto. We will continue rate control with metoprolol. 8. Osteoarthritis on the right shoulder, stable. 9. Gastrointestinal and deep venous thrombosis prophylaxis addressed. 10. Chronic kidney disease stage III Plan: Likely discharge in a.m. on oral antibiotics. V/Q scan was negative for any PE. CT of the chest personally reviewed, does show significant bilateral pneumonia with large area of consolidation in the inferior aspect of the right upper lobe. GUSTAVO Voice ID: [id number] Report ID: [id number] MTDD
[2018-02-07] MEDS ORDERED: ATORVASTATIN 10 MG TAB PO SCH (21:00)
[2018-02-07] MEDS ORDERED: VANCOMYCIN 1.75 GM in NA CHLORIDE 0.9% 500 ML IVPB SCH (23:00)
[2018-02-08] MEDS: IPRATROPIUM BROM 0.5MG/2.5ML NEB SCH ×2 (01:50→07:39)
[2018-02-08 05:35] VITALS: BMI 26.6
[2018-02-08 07:48] LABS: Potassium 3.8 mmol/L (3.5-5.1)
[2018-02-08] MEDS: POTASSIUM CL SA 10 MEQ TAB PO SCH (08:19)
[2018-02-08] MEDS: METOPROLOL XL 25 MG TAB PO SCH (08:19)
[2018-02-08] MEDS: THYROID 30 MG TAB PO SCH (08:19)
[2018-02-08] MEDS: AMIODARONE HCL 200 MG TAB PO SCH (08:20)
[2018-02-08] MEDS: GUAIFENESIN/CODEINE 5ML UCUP PO PRN (09:28)
--- NOTE | 2018-02-08 09:49 | RAD REPORT ---
EXAM DESCRIPTION: RAD - Chest Single View - 02/08/2018 9:25 am CLINICAL HISTORY: Pneumonia COMPARISON: February 06 TECHNIQUE: AP portable chest image was obtained 0914 hours . FINDINGS: Consolidation in the right upper lobe has worsened. Infiltrate in the left mid lung field also progressive to a lesser degree. Right lower lung field opacification not significantly different . Cardiomegaly is present without vascular engorgement. Heart size is not substantially different. No m easurable pleural effusion and no pneumothorax. No gross bony abnormality seen. No acute aortic findi ngs suspected. IMPRESSION: Worsening right upper lobe and left mid lung field pneumonia.
[2018-02-08 10:52] VITALS: O2SAT 95
[2018-02-08 11:00] VITALS: BP 119/76; TEMP 97.8
--- NOTE | 2018-02-09 01:06 | DS ---
Date of Discharge: 02/08/2018 Admitting Diagnoses: 1.Acute respiratory failure. 2.Chronic obstructive pulmonary disease with acute exacerbation. 3.Pneumonia, bilateral. 4.Shortness of breath. 5.Hypothyroid. 6.Nicotine dependence with cigarette smoking. Discharge Diagnoses: 1.Acute respiratory distress with hypoxia, resolved. 2.Acute chronic obstructive pulmonary disease exacerbation, improved. 3.Bilateral pneumonia, clinically significantly improved. 4.Hypothyroidism, Synthroid. 5.Nicotine dependence, cigarette smoking; the patient recently quit. 6.Mixed hyperlipidemia, statin. 7.Atrial fibrillation, paroxysmal, on Xarelto. 8.Osteoarthritis of the right shoulder. 9.Chronic kidney disease, stage 3. 10.Elevated troponin level. 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 The patient had elevated white blood cell count. Chest x-ray showed bilateral infiltrates. CT of t he chest was done, showed significant bilateral pneumonia changes within the largest area of consolid ation in the inferior aspect of the right upper lobe. No mass was seen. V/Q scan was done to rule o ut PE, which matched perfusion defect indicating pneumonia. There was no evidence of a pulmonary emb olism. The patient also had some mildly elevated troponin level; however, likely due to demand misma tch. No chest pain. The patient was then seen by blow torch burner, Dr. Rahman. He was started on IV antibiotics. His blood culture did not show any growth. His influenza screen was negative[facility]. Repeat chest x-ray showed some worsening of the right up per lobe and left mid lung field pneumonia. However, clinically, the patient was significantly impro rajan. Hence, supplemental oxygen use resolved. He was no longer on oxygen. He was able to ambulate with the room air saturation of 94% and with activity was 94%. The patient's white count normalized. He did not have any further cough. His troponin level declined from 0.22 to 0.14. He will need ou tpatient followup with Cardiology given his history of mild coronary artery disease and dilated cardi omyopathy. Patient again was instructed to continue smoking cessation. The patient was then dischar ged in a stable condition. Activity: No strenuous activity. Diet: Heart healthy. Followup: Follow up with primary care physician in 2-3 days. Follow up with blow torch burner, Dr. Gilma cary, in 2 weeks. Return to ER for worsening condition. Follow up with is consultant in 2 weeks. Medications: As per medication reconciliation list. Finish off course of Levaquin and will be start ed on Advair. Physical Examination: General: Awake, alert, oriented, no acute distress. Appears older than stated age. CV: S1, S2. Peripheral pulses present. Respiratory: Moving air well bilaterally. No wheezing. Gastrointestinal: Abdomen is soft, nontender, nondistended. Positive bowel sounds. Extremities: No clubbing, cyanosis, edema. Neurologic: Nonfocal. Total time spent discharging the patient was 38 minutes. GUSTAVO Voice ID: [id number] Report ID: [id number]
== END 2018-02-08 11:45 | disposition home or self-care (01) | DRG 189 ==
LOC: ER 18:03 → ERHOLD 21:28 → 2ND 22:06
PROVIDERS: ADMIT Internal Medicine; ATTEND Family Medicine
DX: J96.01 Acute respiratory failure with hypoxia (principal); J18.9 Pneumonia, unspecified organism; J44.1 Chronic obstructive pulmonary disease with (acute) exacerbation; J44.0 Chronic obstructive pulmonary disease with (acute) lower respiratory infection; I42.6 Alcoholic cardiomyopathy; E03.9 Hypothyroidism, unspecified; E78.2 Mixed hyperlipidemia; I48.0 Paroxysmal atrial fibrillation; Z79.01 Long term (current) use of anticoagulants; M19.011 Primary osteoarthritis, right shoulder; N18.3 Chronic kidney disease, stage 3 (moderate); I25.10 Atherosclerotic heart disease of native coronary artery without angina pectoris; E78.00 Pure hypercholesterolemia, unspecified; I12.9 Hypertensive chronic kidney disease with stage 1 through stage 4 chronic kidney disease, or unspecified chronic kidney disease; F10.21 Alcohol dependence, in remission; F17.211 Nicotine dependence, cigarettes, in remission
CPT/HCPCS: 36415; 71045; 71046; 71250; 78582; 80048; 81003; 82805; 83735; 83880; 84145; 84484; 85025; 87040; 87070; 87077; 87186; 87205; 87804; 93005; 94640; 94760; 99285; A9540; A9558

== ENCOUNTER 2023-04-14 17:07 | Emergency (ER) | payer OTHER ==
[2023-04-14 17:46] LABS: Absolute Lymphocytes (CBC) 1.9 K/uL (0.7-4.9); Hematocrit 42.3 % (39.6-49.0); Lymphocytes % 28.6 % (15.3-44.8); MPV 8.6 fL (7.6-11.3); Platelets 187 thou/uL (152-406)
[2023-04-14] MEDS ORDERED: ASPIRIN 81 MG CHEWABLE TABLET ONE (17:57)
[2023-04-14] MEDS ORDERED: MORPHINE 4 MG/ML SYR ONE (17:58)
[2023-04-14 18:00] LABS: Troponin High Sensitivity 33.3 pg/mL (<58.9)
--- NOTE | 2023-04-14 18:25 | RAD REPORT ---
EXAM DESCRIPTION: RADChest Single View04/14/2023 5:44 pm CLINICAL HISTORY: CHEST PAIN COMPARISON: Chest Single View dated 01/12/2023; Chest Single View dated 02/08/2018; Chest Pa And Lat (2 Views) dated 02/06/2018; Chest Single View dated 01/12/2018 TECHNIQUE: Portable AP view of the chest. FINDINGS: The lungs are clear. No pneumothorax or effusion. The cardiomediastinal contours are unre markable. Left chest wall pacer/AICD in place. IMPRESSION: No acute cardiopulmonary process.
--- NOTE | 2023-04-14 20:09 | EDPHYS ---
Physician Documentation [facility] Name: Tad De Leon Age: 67 yrs Sex: Male : 1955 Arrival Date: 04/14/2023 Time: 17:07 Bed 6 Private MD: ED Physician Boby Caldwell HPI: 04/14 17:16 This 67 yrs old Male presents to ER via Ambulatory with complaints of Chest ec2 Pain. 17:16 Patient arrives today for evaluation of chest pain. States that he has been having ec2 chest pain for over 1 week. States that the pain is with no specific alleviating or exacerbating factors. States that he follows with Dr. Kapadia with cardiology, had a recent stress test and was told that this was unremarkable. Denies any difficulty breathing. Denies any leg swelling. Reports a history of hypertension, hyperlipidemia, atrial fibrillation.. Historical: - Allergies: 17:09 No Known Allergies; iw - PMHx: 17:09 Arthritis; Atrial Fib; High Cholesterol; Hypertension; Hypothyroidism; iw - PSHx: 17:09 cardiac ablation; iw 17:18 carotid stent; iw - Immunization history:: Adult Immunizations up to date. - Social history:: Smoking status: unknown. ROS: 17:16 Constitutional: as per hpi ec2 Exam: 17:16 Constitutional: GEN: NAD Head: atraumatic Eyes: EOMI Ears: External ears are ec2 normal. CV: regular rate LUNGS: no respiratory distress ABD: non-distended SKIN: no evidence of rashes MSK: no evidence of trauma NEURO: moves all extremities equally Vital Signs: 17:17 BP 178 / 95; Pulse 70; Resp 16; Temp 98.1; Pulse Ox 98% on R/A; Weight 91.17 kg; Height iw 6 ft. 0 in. ; Pain 5/10; 18:22 BP 166 / 91; Pulse 78; Resp 18; Pulse Ox 95% on R/A; mb9 20:17 BP 154 / 85; Pulse 71; Resp 16; Temp 98; Pulse Ox 97% on R/A; rv 17:17 Body Mass Index 27.26 (91.17 kg, 182.88 cm) iw 17:17 Pain Scale: Adult iw [place] Coma Score: 20:17 Eye Response: spontaneous(4). Motor Response: obeys commands(6). Verbal Response: rv oriented(5). Total: 15. MDM: 17:09 Patient medically screened. ec2 17:16 ED course: Patient arrives today for evaluation of chest pain. Examination remarkable ec2 for well-appearing nontoxic individual is otherwise in no acute distress. Will obtain a cardiac workup and reassess the patient. Currently considering processes ACS, lower suspicion for PE or dissection. Low suspicion for pneumonia.. 17:19 Data reviewed: vital signs. ED course: EKG independently reviewed and interpreted by ec2 me, shows normal sinus rhythm, rate of 69, no acute ST segment elevations, intervals are nonconcerning.. 18:02 ED course: Metabolic profile with renal dysfunction noted. CBC is reassuring. Troponin ec2 is within normal ranges. Will obtain repeat troponin at 2 hours. . 18:33 ED course: Chest x-ray shows no acute intrathoracic process. . ec2 18:40 ED course: On reassessment patient with improvement in symptoms. Will obtain repeat EKG ec2 and troponin.. 19:39 ED course: Repeat EKG independently reviewed and interpreted by me, shows normal sinus ec2 rhythm, rate of 62, no acute ST segment elevations, nonconcerning intervals.. 19:50 ED course: Patient with repeat troponin is static. With no recurrence of pain, will ec2 discharge home. Patient did have recent outpatient stress test and do not feel he requires admission for repeat this or cardiac catheterization at this time. . 04/14 17:11 Order name: Basic Metabolic Panel; Complete Time: 18:02 ec2 04/14 17:11 Order name: CBC with Diff; Complete Time: 18:02 ec2 04/14 17:11 Order name: Troponin HS; Complete Time: 18:02 ec2 04/14 19:00 Order name: Troponin HS; Complete Time: 19:50 ec2 04/14 17:11 Order name: XRAY Chest (1 view); Complete Time: 18:33 ec2 04/14 17:11 Order name: EKG; Complete Time: 17:12 ec2 04/14 19:00 Order name: EKG; Complete Time: 19:01 ec2 04/14 17:11 Order name: Cardiac monitoring; Complete Time: 18:10 ec2 04/14 17:11 Order name: EKG - Nurse/Tech; Complete Time: 17:18 ec2 04/14 17:11 Order name: IV Saline Lock; Complete Time: 17:38 ec2 04/14 17:11 Order name: Labs collected and sent; Complete Time: 17:38 ec2 04/14 17:11 Order name: O2 Per Protocol; Complete Time: 17:38 ec2 04/14 17:11 Order name: O2 Sat Monitoring; Complete Time: 17:38 ec2 04/14 19:00 Order name: EKG - Nurse/Tech; Complete Time: 19:55 ec2 Administered Medications: 17:48 Drug: morphine IVP or IV 4 mg IVP once over 4 mins Route: IVP; Infused Over: 4 mins; iw Site: right antecubital; 17:59 Drug: Aspirin PO Chewable Tablet 324 mg PO once; 81 mg tablets x 4 Route: PO; iw Disposition Summary: 04/14/23 20:09 Discharge Ordered Notes: Location: Home ec2 Condition: Stable ec2 Diagnosis - Chest pain, unspecified ec2 Followup: ec2 - With: Private Physician - When: - Reason: Re-evaluation by your physician Discharge Instructions: - Discharge Summary Sheet ec2 - Nonspecific Chest Pain, Adult ec2 Forms: - Medication Reconciliation Form ec2 - Thank You Letter ec2 - Antibiotic Education ec2 - Prescription Opioid Use ec2 - Patient Portal Instructions ec2 - Leadership Thank You Letter ec2 Signatures: Dispatcher [employer] Emiliana Machado, RN AIDEE Tanya Wolf RN RN Boby Dillon MD MD ec2 Corrections: (The following items were deleted from the chart) 17:10 17:09 Allergies: Aspirin; iw 17:18 17:09 PSHx: cardiac stent; iw
--- NOTE | 2023-04-14 20:09 | ER ---
Nurse's Notes [facility] Name: Tad De Leon Age: 67 yrs Sex: Male : 1955 Arrival Date: 04/14/2023 Time: 17:07 Bed 6 Private MD: Diagnosis: Chest pain, unspecified Presentation: 04/14 17:08 Chief complaint: Patient states: chest pain X 1 week, worse today , also has SOB, pain iw feels like tightness. Coronavirus screen: At this time, the client does not indicate any symptoms associated with coronavirus-19. Ebola Screen: Patient negative for fever greater than or equal to 101.5 degrees Fahrenheit, and additional compatible Ebola Virus Disease symptoms Patient denies exposure to infectious person. Patient denies travel to an Ebola-affected area in the 21 days before illness onset. No symptoms or risks identified at this time. Risk Assessment: Do you want to hurt yourself or someone else? Patient reports no desire to harm self or others. Onset of symptoms was April 08, 2023. 17:08 Method Of Arrival: Ambulatory iw 17:08 Acuity: ANTONIO 3 iw 18:48 Initial Sepsis Screen: Does the patient meet any 2 criteria? No. Patient's initial mb9 sepsis screen is negative. Does the patient have a suspected source of infection? No. Patient's initial sepsis screen is negative. Historical: - Allergies: 17:09 No Known Allergies; iw - PMHx: 17:09 Arthritis; Atrial Fib; High Cholesterol; Hypertension; Hypothyroidism; iw - PSHx: 17:09 cardiac ablation; iw 17:18 carotid stent; iw - Immunization history:: Adult Immunizations up to date. - Social history:: Smoking status: unknown. Screenin:35 [facility] ED Fall Risk Assessment (Adult) History of falling in the last 3 months, iw including since admission No falls in past 3 months (0 pts). Abuse screen: Denies threats or abuse. Denies injuries from another. Nutritional screening: No deficits noted. Tuberculosis screening: No symptoms or risk factors identified. Assessment: 17:35 General: Appears in no apparent distress. Behavior is calm, cooperative. Pain: iw Complains of pain in anterior aspect of right upper chest, anterior aspect of left upper chest and mid-sternal area Pain does not radiate. Pain began X 1 week. Neuro: Level of Consciousness is awake, alert, obeys commands, Oriented to person, place, time, situation, Moves all extremities. Full function. Cardiovascular: Reports chest pain, shortness of breath, Patient's skin is warm and dry. Respiratory: Respiratory effort is even, unlabored, Respiratory pattern is regular, symmetrical. GI: Abdomen is flat, non-distended. 18:11 Reassessment: Patient appears in no apparent distress at this time. Patient and/or iw family updated on plan of care and expected duration. Pain level reassessed. Patient is alert, oriented x 3, equal unlabored respirations, skin warm/dry/pink. Vital Signs: 17:17 BP 178 / 95; Pulse 70; Resp 16; Temp 98.1; Pulse Ox 98% on R/A; Weight 91.17 kg; Height iw 6 ft. 0 in. ; Pain 5/10; 18:22 BP 166 / 91; Pulse 78; Resp 18; Pulse Ox 95% on R/A; mb9 20:17 BP 154 / 85; Pulse 71; Resp 16; Temp 98; Pulse Ox 97% on R/A; rv 17:17 Body Mass Index 27.26 (91.17 kg, 182.88 cm) iw 17:17 Pain Scale: Adult iw [place] Coma Score: 20:17 Eye Response: spontaneous(4). Motor Response: obeys commands(6). Verbal Response: rv oriented(5). Total: 15. ED Course: 17:08 Patient arrived in ED. ll1 17:09 Boby Caldwell MD is Attending Physician. ec2 17:09 Triage completed. iw 17:10 Arm band placed on. iw 17:35 Initial lab(s) drawn, by me, sent to lab. Inserted saline lock: 20 gauge in right iw antecubital area, using aseptic technique. Blood collected. Patient maintains SpO2 saturation greater than 95% on room air. 17:36 Patient has correct armband on for positive identification. Client placed on continuous iw cardiac and pulse oximetry monitoring. NIBP monitoring applied. 17:46 XRAY Chest (1 view) In Process Unspecified. EDMS 18:06 Tanya Wolf RN is Primary Nurse. mb9 18:48 No provider procedures requiring assistance completed. mb9 19:05 Report given to Tonya RN. mb9 20:17 IV discontinued, intact, bleeding controlled, No redness/swelling at site. Pressure rv dressing applied. Administered Medications: 17:48 Drug: morphine IVP or IV 4 mg IVP once over 4 mins Route: IVP; Infused Over: 4 mins; iw Site: right antecubital; 17:59 Drug: Aspirin PO Chewable Tablet 324 mg PO once; 81 mg tablets x 4 Route: PO; iw Medication: 17:36 VIS not applicable for this client. iw Outcome: 20:09 Discharge ordered by MD. [email or web address] 20:17 Discharged to home ambulatory, with family, rv 20:17 Condition: good 20:17 Discharge instructions given to patient, family, Instructed on discharge instructions, follow up and referral plans. Demonstrated understanding of instructions, follow-up care, 20:17 Patient left the ED. rv Signatures: Dispatcher [employer] Emiliana Machado RN RN iw Nolan Hines RN RN rv Hamzah Menendez RN RN ll1 Maryann, Tanya Callaway RN RN mb9 Boby Caldwell MD MD ec2 Corrections: (The following items were deleted from the chart) 17:10 17:09 Allergies: Aspirin; iw iw 17:18 17:09 PSHx: cardiac stent; iw iw
[2023-04-14 20:38] VITALS: BP 154/85; TEMP 98; O2SAT 97
--- NOTE | 2023-04-19 14:01 | EKG ---
Test Date: 2023-04-14 Test Time: 19:29:28 Supervisor Pipe Finishing: PORFIRIO MEASUREMENT RESULTS: Intervals: Rate: 62 WV: 144 QRSD: 112 QT: 430 QTc: 436 [place]: P: 50 WV: 144 QRS: 19 T: -8 INTERPRETIVE STATEMENTS: Normal sinus rhythm Inferior infarct, age undetermined Abnormal ECG Compared to ECG 04/14/2023 17:16:04 Myocardial infarct finding now present Electronically Signed On 04-19-23 13:44:40 JAILER by Jay Kapadia
--- NOTE | 2023-04-19 14:02 | EKG ---
Test Date: 2023-04-14 Test Time: 17:16:04 Human Resources Executive: JARRED MEASUREMENT RESULTS: Intervals: Rate: 69 NC: 144 QRSD: 106 QT: 402 QTc: 430 [place]: P: 64 NC: 144 QRS: 55 T: 51 INTERPRETIVE STATEMENTS: Normal sinus rhythm Normal ECG Compared to ECG 01/12/2023 09:05:48 No significant changes Electronically Signed On 04-19-23 13:45:40 ROLL COVERER by Jay Kapadia
== END 2023-04-14 20:17 | disposition home or self-care (01) ==
LOC: ER 17:07
DX: R07.9 Chest pain, unspecified (principal); I10 Essential (primary) hypertension; E78.00 Pure hypercholesterolemia, unspecified; I48.91 Unspecified atrial fibrillation
CPT/HCPCS: 36415; 71045; 80048; 84484; 85025; 93005; 96374; 99285

== ENCOUNTER 2023-04-25 13:39 | Observation (INO) | payer OTHER ==
[2023-04-25] MEDS ORDERED: ASPIRIN 325 MG TAB ONE (14:44)
[2023-04-25 14:53] LABS: Hematocrit 41.8 % (39.6-49.0); Lymphocytes % 29.3 % (15.3-44.8); MCV 88.9 fL (80-100); MPV 8.6 fL (7.6-11.3); Platelets 186 thou/uL (152-406)
--- NOTE | 2023-04-25 14:58 | RAD REPORT ---
EXAM DESCRIPTION: RAD - Chest Single View - 04/25/2023 2:47 pm CLINICAL HISTORY: CHEST PAIN Chest pain. COMPARISON: Chest Single View dated 04/14/2023; Chest Single View dated 01/12/2023; Chest Single View d ated 02/08/2018; Chest Pa And Lat (2 Views) dated 02/06/2018 FINDINGS: Portable technique limits examination quality. The lungs are grossly clear. The heart is normal in size. No displaced fractures.Dual lead pacer h[place] ce noted. IMPRESSION: No acute intrathoracic process suspected.
[2023-04-25 15:11] LABS: Magnesium 1.8 mg/dL (1.6-2.4); Troponin High Sensitivity 23.2 pg/mL (<58.9)
--- NOTE | 2023-04-25 16:31 | EDPHYS ---
Physician Documentation [facility] Name: Tad De Leon Age: 67 yrs Sex: Male : 1955 Arrival Date: 04/25/2023 Time: 13:39 Bed 5 Private MD: ED Physician Lisa Watt HPI: 04/25 15:34 This 67 yrs old Male presents to ER via Ambulatory with complaints of Chest Pain. ci 15:34 Patient is a 67-year-old male with PMH A-fib, hypertension, hypothyroidism who presents ci to the ED with midsternal chest pain that began today while he was walking in the house. Pain feels like tightness, nonradiating, constant, no aggravating or relieving factors. He reports he checked his blood pressure and it was 202/105. Endorses compliance with antihypertensives took his metoprolol and valsartan today. He endorses associated shortness of breath. Denies nausea/vomiting, no diaphoresis. Denies cough, congestion, pedal edema. Patient's sister called Dr. Kapadia his federal mediator and was asked to come to the ER.. Historical: - Allergies: 13:50 No Known Allergies; ko1 - PMHx: 13:50 Arthritis; Atrial Fib; High Cholesterol; Hypertension; Hypothyroidism; ko1 - PSHx: 13:50 Cardiac Ablation; carotid stent; ko1 - Immunization history:: Adult Immunizations unknown. - Social history:: Smoking status: Patient/guardian denies using tobacco, but has a distant history of tobacco abuse. ROS: 15:34 Constitutional: Negative for fever, chills, and weight loss, ci 15:34 Cardiovascular: Positive for chest pain, Negative for edema, orthopnea, palpitations, 15:34 Respiratory: Positive for shortness of breath, Negative for hemoptysis, pleurisy, wheezing, Exam: 15:37 Constitutional: This is a well developed, well nourished patient who is awake, alert, ci and in no acute distress. Head/Face: Normocephalic, atraumatic. Eyes: Pupils equal round and reactive to light, extra-ocular motions intact. Lids and lashes normal. Conjunctiva and sclera are non-icteric and not injected. Cornea within normal limits. Periorbital areas with no swelling, redness, or edema. ENT: Nares patent. No nasal discharge, no septal abnormalities noted. Tympanic membranes are normal and external auditory canals are clear. Oropharynx with no redness, swelling, or masses, exudates, or evidence of obstruction, uvula midline. Mucous membranes moist. Neck: Trachea midline, no thyromegaly or masses palpated, and no cervical lymphadenopathy. Supple, full range of motion without nuchal rigidity, or vertebral point tenderness. No Meningismus. Chest/axilla: Normal chest wall appearance and motion. Nontender with no deformity. No lesions are appreciated. Cardiovascular: Regular rate and rhythm with a normal S1 and S2. No gallops, murmurs, or rubs. Normal PMI, no JVD. No pulse deficits. Respiratory: Lungs have equal breath sounds bilaterally, clear to auscultation and percussion. No rales, rhonchi or wheezes noted. No increased work of breathing, no retractions or nasal flaring. Abdomen/GI: Soft, non-tender, with normal bowel sounds. No distension or tympany. No guarding or rebound. No evidence of tenderness throughout. Back: No spinal tenderness. No costovertebral tenderness. Full range of motion. Skin: Warm, dry with normal turgor. Normal color with no rashes, no lesions, and no evidence of cellulitis. MS/ Extremity: Pulses equal, no cyanosis. Neurovascular intact. Full, normal range of motion. Neuro: Awake and alert, GCS 15, oriented to person, place, time, and situation. Cranial nerves II-XII grossly intact. Motor strength 5/5 in all extremities. Sensory grossly intact. Cerebellar exam normal. Normal gait. Psych: Awake, alert, with orientation to person, place and time. Behavior, mood, and affect are within normal limits. Vital Signs: 13:50 BP 182 / 86; Pulse 70; Resp 16; Temp 98; Pulse Ox 100% ; ko1 15:23 BP 170 / 96; Pulse 62; Resp 18; Pulse Ox 99% on R/A; Pain 7/10; ld1 17:05 BP 189 / 90; Pulse 60; Resp 16; Pulse Ox 99% ; Pain 0/10; nj1 15:23 Pain Scale: Adult ld1 17:05 Pain Scale: Adult nj1 MDM: 13:55 Patient medically screened. ci 15:37 Differential diagnosis: abnormal EKG, acute myocardial infarction, coronary artery ci disease congestive heart failure costochondritis, pneumonia, pneumothorax, pulmonary embolus, unstable angina. 15:37 HEART Score: History: Slightly Suspicious (0), ECG: Non specific repolarization ci disturbance / LBTB / PM (1), Age: > or = 65 years (2), Risk Factors: 1 or 2 risk factors (1), Troponin: < or = 1 x Normal Limit (0), Total Score = 4. The patient was given aspirin in the Emergency Department. Data reviewed: vital signs, nurses notes. Historians other than the Patient: Family Member: Sister. Care significantly affected by the following chronic conditions: Hypertension, Hyperlipidemia, A-fib. ED course: Patient presents with chest pain and hypertension. He is nontoxic-appearing, vital signs stable. Chart review shows patient was seen in the ED a few weeks ago. His EKG shows normal sinus rhythm with no acute ischemic changes, HR 66. HST is negative. Patient has no pulse no neurodeficits, he denies migratory knifelike chest pain, low suspicion for aortic dissection. Chest x-ray is interpreted by me shows no obvious pneumonia, no pneumothorax. proBNP is slightly elevated 822. Patient was sent to the ED by federal mediator, cardiology consulted, awaiting callback.. 16:26 ED course: I spoke with federal mediator Dr. Kapadia who stated that patient had a very ci positive stress test and to admit to hospitalist, plan for heart cath tomorrow, n.p.o. after midnight. Discussed case with hospitalist who accepted patient for admission. 04/25 14:20 Order name: Basic Metabolic Panel; Complete Time: 15:30 ci 18 15:30 Interpretation: Abnormal: CRE 1.43. ci 04/25 14:20 Order name: CBC with Diff; Complete Time: 15:04 ci 04/25 15:04 Interpretation: Within normal limits. ci 04/25 14:20 Order name: Magnesium; Complete Time: 15:30 ci 04/25 14:20 Order name: NT PRO-BNP; Complete Time: 15:30 ci 18 15:30 Interpretation: NT PRO-BNP 822. ci 04/25 14:20 Order name: Troponin HS; Complete Time: 15:30 ci 04/25 14:20 Order name: XRAY Chest (1 view); Complete Time: 15:04 ci 04/25 15:04 Interpretation: No acute disease. ci 04/25 14:20 Order name: EKG; Complete Time: 14:21 ci 04/25 14:20 Order name: Cardiac monitoring; Complete Time: 15:16 ci 04/25 14:20 Order name: EKG - Nurse/Tech; Complete Time: 14:41 ci 04/25 14:20 Order name: IV Saline Lock; Complete Time: 14:46 ci 04/25 14:20 Order name: Labs collected and sent; Complete Time: 14:46 ci 04/25 14:20 Order name: O2 Per Protocol; Complete Time: 14:46 ci 04/25 14:20 Order name: O2 Sat Monitoring; Complete Time: 14:46 ci Administered Medications: 14:48 Drug: Aspirin PO 325 mg PO once Route: PO; cm10 17:01 Follow up: Response: No adverse reaction nj1 17:05 Drug: cloNIDine PO 0.1 mg PO once Route: PO; nj1 Disposition Summary: 04/25/23 16:30 Hospitalization Ordered Notes: Hospitalization Status: Inpatient Admission ci Provider: Virgilio Breaux Location: Telemetry/MedSurg (Inpatient) ci Condition: Stable ci Problem: new ci Symptoms: are resolved ci Bed/Room Type: Standard Room Assignment: 407(04/25/23 17:01) bd Diagnosis - Chest pain, unspecified ci Forms: - Medication Reconciliation Form ci - SBAR form ci - Leadership Thank You Letter ci Signatures: Dispatcher [employer] EDMS Amara Delvalle Lee, MOTION PICTURE SET UP WORKER-C MOTION PICTURE SET UP WORKER-Cla1 Alka Willis, RN RN ko1 Aye Cardenas RN RN nj1 Leslie Crews, RN RN 10 Lisa Watt ci Corrections: (The following items were deleted from the chart) 17:01 16:30 ci bd
--- NOTE | 2023-04-25 16:31 | ER ---
Nurse's Notes [facility] Name: Tad De Leon Age: 67 yrs Sex: Male : 1955 Arrival Date: 04/25/2023 Time: 13:39 Bed 5 Private MD: Diagnosis: Chest pain, unspecified Presentation: 04/25 13:46 Chief complaint: Patient states: started having chest pain earlier today, took all ko1 medications today but blood pressure was high. Was here a couple of weeks ago with the same pain, all enzymes were negative. Pain gets worse when blood pressure is high. 13:46 Method Of Arrival: Ambulatory ko1 13:50 Coronavirus screen: At this time, the client does not indicate any symptoms associated ko1 with coronavirus-19. Ebola Screen: No symptoms or risks identified at this time. Initial Sepsis Screen: Does the patient meet any 2 criteria? No. Patient's initial sepsis screen is negative. Does the patient have a suspected source of infection? No. Patient's initial sepsis screen is negative. Risk Assessment: Do you want to hurt yourself or someone else? Patient reports no desire to harm self or others. Onset of symptoms was April 25, 2023. 13:50 Acuity: ANTONIO 3 ko1 Triage Assessment: 13:50 General: Appears in no apparent distress. Behavior is calm, cooperative, appropriate ko1 for age. Pain: Complains of pain in chest. Cardiovascular: Reports chest pain, lightheadedness, shortness of breath. Historical: - Allergies: 13:50 No Known Allergies; ko1 - PMHx: 13:50 Arthritis; Atrial Fib; High Cholesterol; Hypertension; Hypothyroidism; ko1 - PSHx: 13:50 Cardiac Ablation; carotid stent; ko1 - Immunization history:: Adult Immunizations unknown. - Social history:: Smoking status: Patient/guardian denies using tobacco, but has a distant history of tobacco abuse. Screenin:23 [facility] ED Fall Risk Assessment (Adult) History of falling in the last 3 months, ld1 including since admission No falls in past 3 months (0 pts). Abuse screen: Denies threats or abuse. Denies injuries from another. Nutritional screening: No deficits noted. Tuberculosis screening: No symptoms or risk factors identified. Assessment: 15:23 General: Appears in no apparent distress. comfortable, Behavior is calm, cooperative, ld1 appropriate for age. Pain: Complains of pain in chest Pain does not radiate. Pain currently is 7 out of 10 on a pain scale. Quality of pain is described as throbbing, Pain began suddenly, Is continuous. Neuro: Level of Consciousness is awake, alert, obeys commands, Oriented to person, place, time, situation. Cardiovascular: Capillary refill < 3 seconds Patient's skin is warm and dry. Rhythm is Respiratory: Airway is patent Respiratory effort is even, unlabored. GI: Abdomen is round non-distended. : No signs and/or symptoms were reported regarding the genitourinary system. EENT: No signs and/or symptoms were reported regarding the EENT system. Derm: No signs and/or symptoms reported regarding the dermatologic system. Musculoskeletal: No signs and/or symptoms reported regarding the musculoskeletal system. 17:05 Reassessment: Patient appears in no apparent distress at this time. Patient and/or nj1 family updated on plan of care and expected duration. Pain level reassessed. Patient is alert, oriented x 3, equal unlabored respirations, skin warm/dry/pink. Pain: Denies pain. Vital Signs: 13:50 BP 182 / 86; Pulse 70; Resp 16; Temp 98; Pulse Ox 100% ; ko1 15:23 BP 170 / 96; Pulse 62; Resp 18; Pulse Ox 99% on R/A; Pain 7/10; ld1 17:05 BP 189 / 90; Pulse 60; Resp 16; Pulse Ox 99% ; Pain 0/10; nj1 15:23 Pain Scale: Adult ld1 17:05 Pain Scale: Adult nj1 ED Course: 13:42 Patient arrived in ED. mg5 13:50 Triage completed. ko1 13:50 Arm band placed on right wrist. Patient placed in an exam room, on a stretcher, on ko1 media monitor, on pulse oximetry, Patient notified of wait time. 13:55 Lisa Watt is Attending Physician. ci 14:46 Basic Metabolic Panel Sent. cm10 14:46 CBC with Diff Sent. cm10 14:46 Magnesium Sent. cm10 14:46 NT PRO-BNP Sent. cm10 14:46 Troponin HS Sent. cm10 14:46 Initial lab(s) drawn, by me, sent to lab. Inserted saline lock: 20 gauge in left cm10 antecubital area, using aseptic technique. Blood collected. 14:49 XRAY Chest (1 view) In Process Unspecified. EDMS 15:22 Brittany Curtis, RN is Primary Nurse. ld1 15:23 Patient has correct armband on for positive identification. Placed in gown. Bed in low ld1 position. Call light in reach. Side rails up X2. ekg monitor tech on. Pulse ox on. NIBP on. Door closed. Noise minimized. Warm blanket given. 15:23 No provider procedures requiring assistance completed. Patient maintains SpO2 ld1 saturation greater than 95% on room air. 16:29 Virgilio Breaux is Hospitalizing Provider. ci 17:28 Patient admitted, IV remains in place. ld1 Administered Medications: 14:48 Drug: Aspirin PO 325 mg PO once Route: PO; cm10 17:01 Follow up: Response: No adverse reaction nj1 17:05 Drug: cloNIDine PO 0.1 mg PO once Route: PO; nj1 Medication: 17:28 VIS not applicable for this client. ld1 Outcome: 16:30 Decision to Hospitalize by Provider. ci 17:27 Admitted to Med/surg accompanied by tech, via wheelchair, room 407, Report called to ld1 AIDEE Polanco 17:27 Condition: stable 17:27 Instructed on the need for admit, 17:36 Patient left the ED. ld1 Signatures: Dispatcher [employer] EDMS Brittany Curtis, AIDEE HOSKINS ld1 Alka Willis RN RN ko1 Jaco, Norma, RN RN nj1 Leslie Crews RN RN [facility] [place] [id number] Lisa Watt ci Corrections: (The following items were deleted from the chart) 13:55 13:46 Chief complaint: Patient states: started having chest pain earlier today, took ko1 all medications today but blood pressure was high ko1
[2023-04-25] MEDS ORDERED: cloNIDine HCL 0.1 MG TAB ONE (17:03)
--- NOTE | 2023-04-25 17:08 | P.HP ---
Certification for Inpatient Patient admitted to: Observation With expected LOS: <2 Midnights Patient will require the following post-hospital care: None Practitioner: I am a practitioner with admitting privileges, knowledge of patient current condition, hospital course, and medical plan of care. Services: Services provided to patient in accordance with Admission requirements found in Title 42 Section 412.3 of the Code of Federal Regulations Patient History Date of Service: 04/25/23 Reason for admission: Chest pain History of Present Illness: 67-year-old male with history of CVA in January of this year, severe carotid stenosis, atrial fibrillation on chronic anticoagulation with pacemaker/defibrillator in place, hypertension, hyperlipidemia, hypothyroidism presents to the emergency department with chief complaint of chest pain. He reports he been having intermittent chest pain that started earlier today not associated with any particular events described as pressure-like with associated shortness of breath denies diaphoresis or nausea. Patient also reports he had a stress test about 3 weeks ago that was abnormal per his [place] home demonstration agent. He was evaluated in the emergency department EKG was without STEMI criteria initial high-sensitivity troponin 23.2 creatinine 1.43 which is similar to his baseline. Chest x-ray was unremarkable ED provider wishes to admit under observation for ACS rule out. ED physician did discuss with cardiology who plans on cardiac catheterization tomorrow. Allergies No Known Allergies Allergy (Verified 02/06/18 22:29) Home Medications: Amiodarone HCl [Cordarone*] 200 mg PO DAILY 02/06/18 Metoprolol Succinate [Toprol Xl*] 25 mg PO BID 02/06/18 Potassium Chloride [Klor-Con M20] 20 meq PO DAILY 02/06/18 Ranolazine [Ranexa] 500 mg PO BID 02/06/18 Rivaroxaban [Xarelto] 20 mg PO DAILY 02/06/18 Simvastatin [Zocor] 20 mg PO DAILY 02/06/18 Thyroid,Pork [[place] Thyroid] 115 mg PO DAILY 02/06/18 traMADol HCL [Ultram*] 50 mg PO TID PRN 02/06/18 Fluticasone/Salmeterol [Advair 250-50 Diskus] 1 each IH BID 30 Days #1 blst.w.dev 02/08/18 levoFLOXacin [Levaquin] 750 mg PO DAILY #7 tab 02/08/18 - Past Medical/Surgical History Diabetic: No -: HTN -: Atrial fibrillation on chronic anticoagulation with pacemaker defibrillator -: Dyslipidemia -: hypothyroid -: arthritis -: CVA -: Severe carotid stenosis -: Right shoulder surgery -: Atrial fibrillation ablation -: Right carotid stent -: Pacemaker/defibrillator Psychosocial/ Personal History: Lives at home with family - Family History Father -: Heart disease Notes: of heart attack Mother -: Cancer Notes: Pancreatic Brother -: Diabetes Notes: Borderline - Social History Alcohol use: No CD- Drugs: No Caffeine use: No Place of Residence: Home Review of Systems 10-point ROS is otherwise unremarkable Respiratory: Shortness of Breath Cardiovascular: Chest Pain Physical Examination - Physical Exam General: Alert, In no apparent distress, Oriented x3 HEENT: Atraumatic, PERRLA, Mucous membr. moist/pink, EOMI Neck: Supple, 2+ carotid pulse no bruit, No LAD Respiratory: Clear to auscultation bilaterally, Normal air movement Cardiovascular: Regular rate/rhythm, Normal S1 S2 Gastrointestinal: Normal bowel sounds Musculoskeletal: No tenderness Integumentary: No rashes Neurological: Normal speech, Normal strength at 5/5 x4 extr, Normal tone - Studies Laboratory Data (last 24 hrs) 04/25/23 04/25/23 14:42 14:42 WBC 6.80 Hgb 14.3 Hct 41.8 Plt Count 186 Sodium 139 Potassium 4.0 BUN 23 H Creatinine 1.43 H Glucose 102 Magnesium 1.8 Assessment and Plan - Plan Assessment: Chest pain rule out ACS Atrial fibrillation on chronic anticoagulation with pacemaker/defibrillator History of CVA, severe carotid stenosis Hypertension Hyperlipidemia Plan: Chest pain rule out ACS Trend troponins, monitor on telemetry, cardiology consult Plan for heart catheterization tomorrow per cardiology Abnormal stress test 3 weeks ago per patient Atrial fibrillation on chronic anticoagulation with pacemaker/defibrillator Last dose of Eliquis was on Tuesday04/22/2023 Currently paced rhythm Hold Eliquis tonight in anticipation of heart catheterization Patient does report taking his Eliquis 10 times once daily rather than 5 mg twice daily Will need to review instructions/prescriptions History of CVA, severe carotid stenosis Had CVA in January 2023 Right carotid stent was placed at that time Is currently on Eliquis, Plavix Continue Plavix, hold Eliquis tonight in anticipation of heart catheterization 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
[2023-04-25] MEDS ORDERED: ONDANSETRON 4 MG/2 ML VIAL IV PRN (17:43)
[2023-04-25] MEDS ORDERED: MORPHINE 2 MG/ML SYR IV PRN (17:43)
[2023-04-25] MEDS ORDERED: cloNIDine HCL 0.1 MG TAB PO PRN (17:43)
[2023-04-25 18:13] VITALS: BMI 27.8
[2023-04-25] MEDS: NA CHLORIDE 0.9% 1,000 ML IV SCH (19:45)
[2023-04-25] MEDS ORDERED: ATORVASTATIN 80 MG TAB PO SCH (21:00)
[2023-04-26] MEDS: NA CHLORIDE 0.9% 1,000 ML IV SCH (05:31)
[2023-04-26] MEDS ORDERED: METOPROLOL XL 100 MG TAB PO SCH (06:00)
[2023-04-26 06:40] LABS: Absolute Lymphocytes (CBC) 1.8 K/uL (0.7-4.9); Hematocrit 41.1 % (39.6-49.0); Lymphocytes % 31.1 % (15.3-44.8); MCV 90.1 fL (80-100); MPV 8.6 fL (7.6-11.3); Platelets 160 thou/uL (152-406); RBC Red Blood Cell Count 4.56 M/uL (4.33-5.43)
--- NOTE | 2023-04-26 06:55 | P.CNS ---
Date of Consult: 04/25/23 Reason for Consult: Chest pain Requesting Physician: lita gray Chief Complaint: Chest pain History of Present Illness: Mr. De Leon is a 67 yo with a past medical history of chronic atrial fibrillation on Xarelto and Amiodarone. He presented to the ED with chest pain. He said his Healthcare Social Worker told him he had an abnormal stress test about three weeks ago. His last ECHO in 2018 showed an EF of 23% Allergies No Known Allergies Allergy (Verified 02/06/18 22:29) Home medications list reviewed: Yes Home Medications: Metoprolol Succinate [Toprol Xl*] 25 mg PO BID 02/06/18 Thyroid,Pork [[place] Thyroid] 115 mg PO DAILY 02/06/18 Apixaban [Eliquis] 2 tab PO DAILY 04/25/23 Atorvastatin Calcium [Lipitor] 1 tab PO DAILY 04/25/23 Clopidogrel Bisulfate [Plavix] 75 mg PO DAILY 04/25/23 Valsartan 160 mg PO DAILY 04/25/23 - Past Medical/Surgical History Diabetic: No -: HTN -: Atrial fibrillation on chronic anticoagulation with pacemaker defibrillator -: Dyslipidemia -: hypothyroid -: arthritis -: CVA -: Severe carotid stenosis -: Right shoulder surgery -: Atrial fibrillation ablation -: Right carotid stent -: Pacemaker/defibrillator Psychosocial/ Personal History: Lives at home with family - Family History Father Medical History: Heart disease Notes: of heart attack Mother Medical History: Cancer Notes: Pancreatic Brother Medical History: Diabetes Notes: Borderline - Social History Smoking Status: Former smoker Alcohol use: No CD- Drugs: No Caffeine use: No Place of Residence: Home Review of Systems 10-point ROS is otherwise unremarkable Cardiovascular: Chest Pain, As per HPI Physical Examination Temp Pulse Resp BP Pulse Ox 96.7 F L 63 18 159/81 H 93 04/26/23 04:00 04/26/23 05:32 04/26/23 04:00 04/26/23 05:32 04/26/23 04:00 General: Alert, In no apparent distress, Oriented x3 HEENT: Atraumatic, Normocephalic, PERRLA Neck: Supple, 2+ carotid pulse no bruit, JVD not distended Respiratory: Clear to auscultation bilaterally, Normal air movement Cardiovascular: No edema, Normal pulses, Irregular heart rate/rhythm Capillary refill: <2 Seconds Gastrointestinal: Normal bowel sounds, Soft and benign Musculoskeletal: No clubbing Integumentary: No rashes Neurological: Normal gait, Normal speech, Normal tone Lymphatics: No axilla or inguinal lymphadenopathy External genitalia: Deferred Rectal: Deferred Laboratory Data (last 24 hrs) 04/25/23 04/25/23 14:42 14:42 WBC 6.80 Hgb 14.3 Hct 41.8 Plt Count 186 Sodium 139 Potassium 4.0 BUN 23 H Creatinine 1.43 H Glucose 102 Magnesium 1.8 - Problems (1) Anticoagulant long-term use Current Visit: Yes Status: Acute Plan: Pt stopped taking Xarelto in January post his carotid endardectomy, continue Plavix, lovenox post cath today (2) Afib Onset Date: 01/13/18 Current Visit: No Status: Chronic Plan: Monitor telemetry, continue anticoagulation, rate control. Pt has pacemaker/defibrillator Qualifiers: Atrial fibrillation type: chronic (3) Chest pain Current Visit: No Status: Resolved Plan: Troponins trended negative but will perform cardiac cath today Qualifiers: Chest pain type: unspecified Qualified Code(s): R07.9 - Chest pain, unspecified
[2023-04-26 06:59] LABS: Potassium 4.3 mEq/L (3.5-5.1); Troponin High Sensitivity 29.7 pg/mL (<58.9)
[2023-04-26] MEDS ORDERED: VALSARTAN 160 MG TAB PO SCH (09:00)
[2023-04-26] MEDS ORDERED: ENOXAPARIN 40 MG/0.4 ML SQ SCH (09:00)
[2023-04-26] MEDS ORDERED: CLOPIDOGREL 75 MG TABLET PO SCH (09:00)
[2023-04-26] MEDS ORDERED: INFLUENZA VACCINE (for 6+ mo) 0.5 ML DOSE IMVAC ONE (09:00)
[2023-04-26] MEDS ORDERED: HEPA 1000U/500MLS 2,000 UNIT/1,000 ML BAG IV ONE (11:26)
[2023-04-26] MEDS ORDERED: LIDOCAINE 1% 20 ML MDV ONE (11:26)
[2023-04-26] MEDS ORDERED: VERAPAMIL HCL 10 MG/4 ML VIAL IV ONE (11:27)
[2023-04-26] MEDS ORDERED: MIDAZOLAM HCL 2 MG/2 ML INJ ONE (11:27)
[2023-04-26] MEDS ORDERED: FENTANYL CITR 100 MCG/2 ML ONE (11:27)
[2023-04-26] MEDS ORDERED: ATROPINE SULF 1 MG/10 ML SYR IV ONE (11:27)
[2023-04-26] MEDS ORDERED: HEPARIN 10,000 UNIT/10 ML VIAL IV ONE (11:28)
[2023-04-26] MEDS ORDERED: CLOPIDOGREL 75 MG TABLET ONE (11:28)
[2023-04-26] MEDS ORDERED: ASPIRIN 325 MG TAB ONE (11:28)
[2023-04-26] MEDS ORDERED: HEPARIN 5000 UNIT/ML 1 ML VIAL ONE (11:28)
--- NOTE | 2023-04-26 11:49 | EKG ---
Test Date: 2023-04-25 Test Time: 14:37:52 Web Editor: HB MEASUREMENT RESULTS: Intervals: Rate: 66 NC: 140 QRSD: 114 QT: 424 QTc: 444 [place]: P: 78 NC: 140 QRS: 48 T: 51 INTERPRETIVE STATEMENTS: Sinus rhythm with occasional premature ventricular complexes Otherwise normal ECG Compared to ECG 04/14/2023 19:29:28 Ventricular premature complex(es) now present Myocardial infarct finding no longer present Electronically Signed On 04-26-23 11:46:31 CAMP COUNSELOR by Jay Kapadia
--- NOTE | 2023-04-26 12:38 | OP ---
Date of Procedure: 04/26/2023 Surgeon: JACOBY PAULSON Procedures Performed: 1.Selective coronary angiogram. 2.Left heart catheterization. Indication: Unstable angina. Access: Right radial artery 6-Omani closed with TR band. Complications: None. Bleeding: Less than 20 mL. Anesthesia: Total sedation time was 20 minutes. Description Of Procedure: After risks, benefits, and alternatives were explained, the patient agreed to proceed and signed informed consent. The patient was brought to the cardiac catheterization [facility], prepped and draped in sterile fashion. I accessed the right radial artery using pediatric mi cropuncture kit, placed a 6-Omani slender sheath and took a 5-Omani Cade 4.0 catheter over J-wire into the aortic root, engaged left main and took standard views and then RCA and took standard views. Catheter was pushed over the wire into the LV, measured the LVEDP. Pullback did not record any gra dient and removed the catheter and the sheath and placed TR band with good hemostasis. Findings: 1.Left main; large with proximal 20% stenosis. 2.LAD; large vessel, proximal luminal irregularities. Diagonal 1 branches with no significant disea se and then at the mid segment of the LAD, there is focal 40% at the diagonal takeoff and diagonal 2 has proximal 40% stenosis and the rest of the LAD is with luminal irregularities. 3.Left circumflex is a [id number] size vessel with luminal irregularities. 4.RCA; proximal to mid diffuse 90% stenosis and then becomes PRENATAL GENETIC COUNSELOR 100% occluded with collaterals from the septal branches of the LAD that fills all the way back to mid RCA. 5.Normal LVEDP at 10 mmHg. Conclusions: 1.Totally occluded RCA with good collaterals from the left side. 2.Moderate coronary artery disease elsewhere. 3.Normal LVEDP. Recommendation: Medical management. SR/MODL Voice ID: [id number] Report ID: [id number]
[2023-04-26 14:37] VITALS: O2SAT 100
--- NOTE | 2023-04-26 15:52 | P.DS ---
Admission Date: 04/25/23 Discharge Date: 04/26/23 Disposition: ROUTINE DISCHARGE Discharge Condition: GOOD Reason for Admission: Chest pain Consultations: cardiology Dr. Kapadia Brief History of Present Illness: 67-year-old male with history of CVA in January of this year, severe carotid stenosis, atrial fibrillation on chronic anticoagulation with pacemaker/defibrillator in place, hypertension, hyperlipidemia, hypothyroidism presents to the emergency department with chief complaint of chest pain. He reports he been having intermittent chest pain that started earlier today not associated with any particular events described as pressure-like with associated shortness of breath denies diaphoresis or nausea. Patient also reports he had a stress test about 3 weeks ago that was abnormal per his half backer. He was evaluated in the emergency department EKG was without STEMI criteria initial high-sensitivity troponin 23.2 creatinine 1.43 which is similar to his baseline. Chest x-ray was unremarkable ED provider wishes to admit under observation for ACS rule out. ED physician did discuss with cardiology who plans on cardiac catheterization tomorrow. Hospital Course: Assessment: Chest pain rule out ACS Atrial fibrillation on chronic anticoagulation with pacemaker/defibrillator History of CVA, severe carotid stenosis Hypertension Hyperlipidemia Patient was admitted to the hospital under observation for chest pain/ACS rule out. His troponins trended negative although cardiology reported he had an abnormal stress test approximately 3 weeks ago. For this reason patient underwent cardiac catheterization. cath report as follows Findings: 1. Left main; large with proximal 20% stenosis. 2. LAD; large vessel, proximal luminal irregularities. Diagonal 1 branches with no significant disease and then at the mid segment of the LAD, there is focal 40% at the diagonal takeoff and diagonal 2 has proximal 40% stenosis and the rest of the LAD is with luminal irregularities. 3. Left circumflex is a fkddkkkj-eo-lekgi size vessel with luminal irregularities. 4. RCA; proximal to mid diffuse 90% stenosis and then becomes PRODUCTION SERVICE MANAGER 100% occluded with collaterals from the septal branches of the LAD that fills all the way back to mid RCA. 5. Normal LVEDP at 10 mmHg. Conclusions: 1. Totally occluded RCA with good collaterals from the left side. 2. Moderate coronary artery disease elsewhere. 3. Normal LVEDP. Recommendation: Medical management Patient is stable for discharge at this time, instructed to follow-up with his primary care doctor and half backer in the next 1 to 2 weeks. Patient also has a known history of severe carotid stenosis and is in the process of being evaluated by his vascular surgeon for possible stent. Please continue all home medications Additional prescription for Plavix sent to pharmacy as well as a prescription for nitroglycerin to take as needed for chest pain Vital Signs/Physical Exam: Temp Pulse Resp BP Pulse Ox 97.3 F 62 16 182/80 H 96 04/26/23 08:00 04/26/23 13:40 04/26/23 13:40 04/26/23 15:31 04/26/23 08:00 General: Alert, In no apparent distress, Oriented x3 HEENT: Atraumatic, PERRLA Neck: Supple, JVD not distended Respiratory: Clear to auscultation bilaterally, Normal air movement Cardiovascular: Regular rate/rhythm, Normal S1 S2 Gastrointestinal: Normal bowel sounds Musculoskeletal: No tenderness Integumentary: No rashes Neurological: Normal speech, Normal tone Laboratory Data at Discharge: WBC 5.80 thou/uL (4.3-10.9) 04/26/23 05:57 Hgb 13.8 g/dL (13.6-17.9) 04/26/23 05:57 Hct 41.1 % (39.6-49.0) 04/26/23 05:57 Plt Count 160 thou/uL (152-406) 04/26/23 05:57 Sodium 142 mEq/L (136-145) 04/26/23 05:57 Potassium 4.3 mEq/L (3.5-5.1) 04/26/23 05:57 BUN 18 mg/dL (7-18) 04/26/23 05:57 Creatinine 1.28 mg/dL (0.70-1.30) 04/26/23 05:57 Glucose 101 mg/dL (74-106) 04/26/23 05:57 Magnesium 1.8 mg/dL (1.6-2.4) 04/25/23 14:42 Home Medications: Metoprolol Succinate [Toprol Xl*] 25 mg PO BID 02/06/18 Thyroid,Pork [[place] Thyroid] 115 mg PO DAILY 02/06/18 Atorvastatin Calcium [Lipitor] 1 tab PO DAILY 04/25/23 Clopidogrel Bisulfate [Plavix*] 75 mg PO DAILY 04/25/23 Valsartan 160 mg PO DAILY 04/25/23 Apixaban [Eliquis] 5 mg PO BID #60 tab 04/26/23 Clopidogrel Bisulfate [Plavix] 75 mg PO DAILY #30 tab 04/26/23 Nitroglycerin [Nitrostat] 0.4 mg SL DIRECTED PRN #1 btl 04/26/23 New Medications: Apixaban [Eliquis] 5 mg PO BID #60 tab Nitroglycerin [Nitrostat] 0.4 mg SL DIRECTED PRN #1 btl PRN Reason: Chest pain Clopidogrel Bisulfate [Plavix] 75 mg PO DAILY #30 tab Physician Discharge Instructions: Patient was admitted to the hospital under observation for chest pain/ACS rule out. His troponins trended negative although cardiology reported he had an abnormal stress test approximately 3 weeks ago. For this reason patient underwent cardiac catheterization. cath report as follows Findings: 1. Left main; large with proximal 20% stenosis. 2. LAD; large vessel, proximal luminal irregularities. Diagonal 1 branches with no significant disease and then at the mid segment of the LAD, there is focal 40% at the diagonal takeoff and diagonal 2 has proximal 40% stenosis and the rest of the LAD is with luminal irregularities. 3. Left circumflex is a goizmguh-ve-wzowk size vessel with luminal irregularities. 4. RCA; proximal to mid diffuse 90% stenosis and then becomes PRODUCTION SERVICE MANAGER 100% occluded with collaterals from the septal branches of the LAD that fills all the way back to mid RCA. 5. Normal LVEDP at 10 mmHg. Conclusions: 1. Totally occluded RCA with good collaterals from the left side. 2. Moderate coronary artery disease elsewhere. 3. Normal LVEDP. Recommendation: Medical management Patient is stable for discharge at this time, instructed to follow-up with his primary care doctor and half backer in the next 1 to 2 weeks. Patient also has a known history of severe carotid stenosis and is in the process of being evaluated by his vascular surgeon for possible stent. Please continue all home medications Additional prescription for Plavix sent to pharmacy as well as a prescription for nitroglycerin to take as needed for chest pain Diet: AHA Activity: Fall precautions Followup: Jay Kapadia MD [ACTIVE - CAN ADMIT] - 1-2 Weeks Chuck Ibanez MD [Primary Care Provider] - 1-2 Weeks Time spent managing pt's care (in minutes): 30
[2023-04-26 16:21] VITALS: TEMP 97.5
[2023-04-26 16:26] VITALS: BP 154/82
== END 2023-04-26 18:08 | disposition home or self-care (01) ==
LOC: ER 13:39 → 4TH 17:10
PROVIDERS: ADMIT Internal Medicine; ATTEND Hospitalist
PROC: 4A023N7 Measurement of Cardiac Sampling and Pressure, Left Heart, Percutaneous Approach (ICD-10-PCS; principal; 2023-04-26)
PROC: B2111ZZ Fluoroscopy of Multiple Coronary Arteries using Low Osmolar Contrast (ICD-10-PCS; 2023-04-26)
DX: I25.110 Atherosclerotic heart disease of native coronary artery with unstable angina pectoris (principal); I25.82 Chronic total occlusion of coronary artery; I48.19 Other persistent atrial fibrillation; I10 Essential (primary) hypertension; E78.5 Hyperlipidemia, unspecified; E03.9 Hypothyroidism, unspecified; I65.29 Occlusion and stenosis of unspecified carotid artery; M19.90 Unspecified osteoarthritis, unspecified site; Z95.810 Presence of automatic (implantable) cardiac defibrillator; Z79.01 Long term (current) use of anticoagulants; Z79.899 Other long term (current) drug therapy; Z86.73 Personal history of transient ischemic attack (TIA), and cerebral infarction without residual deficits; Z87.891 Personal history of nicotine dependence; Z82.49 Family history of ischemic heart disease and other diseases of the circulatory system; Z80.0 Family history of malignant neoplasm of digestive organs
CPT/HCPCS: 93005; 85025 ×2; 80048 ×2; 36415; 83735; 84484 ×3; 83880; 71045; 93458; 76937; 99285; C1893; Q9966; J1644; J2001; J2250; J3010; G0378 ×4; J7030 ×2; 99152; 99153; J0461; J1650

== ENCOUNTER 2024-04-17 09:19 | Observation (INO) | payer OTHER ==
--- NOTE | 2024-04-17 09:28 | EDPHYS ---
Physician Documentation [facility] Name: Tad De Leon Age: 68 yrs Sex: Male : 1955 Arrival Date: 04/17/2024 Time: 09:19 Bed 14 Private MD: ED Physician Daryl Curtis HPI: 04/17 09:42 This 68 yrs old Male presents to ER via EMS with complaints of Syncope. ms3 09:42 Tad De Leon is a 68 year old male that presents to the Emergency Department after ms3 collapsing during a stress test at Dr. Kapadia's office. During the stress test, the patient experienced polymorphic ventricular tachycardia (V-tach) and subsequently lost consciousness. There are no reports of back pain or chest pain. He denies any pain, sob, nausea, or vomiting.. Historical: - Allergies: 09:38 No Known Allergies; jl7 - PMHx: 09:38 Arthritis; Atrial Fib; High Cholesterol; Hypertension; Hypothyroidism; jl7 - PSHx: 09:38 Cardiac Ablation; carotid stent; jl7 - Immunization history:: Adult Immunizations not up to date. - Infectious Disease History:: Denies. - Social history:: Smoking status: Patient/guardian denies using tobacco, but has a distant history of tobacco abuse. ROS: 09:42 Constitutional: Negative for fever, and chills. Cardiovascular: Negative for chest ms3 pain, and palpitations. Respiratory: Negative for shortness of breath, cough, wheezing, and pleuritic chest pain, Abdomen/GI: Negative for abdominal pain, nausea, vomiting, diarrhea, and constipation, MS/Extremity: Negative for injury and deformity, 09:42 Neuro: Positive for syncope, Exam: 09:24 ECG was reviewed by the Attending Physician. ms3 09:42 Constitutional: This is a well developed, well nourished patient who is awake, alert, ms3 and in no acute distress. Neck: Trachea midline, no cervical lymphadenopathy. Supple, full range of motion without nuchal rigidity, or vertebral point tenderness. No Meningismus. Chest/axilla: Normal chest wall appearance and motion. Nontender with no deformity. Respiratory: Lungs have equal breath sounds bilaterally, clear to auscultation and percussion. No rales, rhonchi or wheezes noted. No increased work of breathing, no retractions or nasal flaring. Abdomen/GI: Soft, non-tender, with normal bowel sounds. No distension or tympany. No guarding or rebound. No evidence of tenderness throughout. Skin: Warm, dry with normal turgor. Normal color with no rashes, no lesions, and no evidence of cellulitis. 09:42 Cardiovascular: Rate: normal, Rhythm: irregular, Pulses: no pulse deficits are appreciated, Heart sounds: normal, normal S1and S2, Edema: is not appreciated, Vital Signs: 09:34 BP 166 / 76; Pulse 88; Resp 17; Temp 97.9; Pulse Ox 97% ; Weight 91.17 kg; Height 6 ft. jl7 0 in. ; Pain 0/10; 10:00 BP 177 / 94; Pulse 81; Resp 15; Pulse Ox 97% ; jl7 09:34 Body Mass Index 27.26 (91.17 kg, 182.88 cm) jl7 09:34 Pain Scale: Adult jl7 MDM: 09:21 Medical Screening Exam initiated ms3 09:23 ED course: Discussed case with Dr Arellano. Agrees with 2gm Magnesium for prolonged QTc. .ms3 09:28 External Records Reviewed: EKG from clinic 04/17/2024 shows polymorphic v tach.. ms3 09:42 Differential Diagnosis: CA vs V tach vs Prolonged QT. ms3 10:24 Data reviewed: vital signs, nurses notes, lab test result(s), EKG, and as a result, I ms3 will admit patient. Consideration of Admission/Observation Patient was admitted/placed on observation. Management of patient was discussed with the following: Hospitalist: Dr Breaux. Business Systems Manager: Dr Arellano. I considered the following discharge prescriptions or medication management in the emergency department Medications were administered in the Emergency Department. See MAR. Independent interpretation of the following test(s) in the Emergency Department EKG: See my EKG interpretation above. Historians other than the Patient: EMS: [facility]. Counseling: I had a detailed discussion with the patient and/or guardian regarding the historical points, exam findings, and any diagnostic results supporting the discharge/admit diagnosis, lab results, the need for further work-up and treatment in the hospital. ED course: Discussed necessity for admission with patient and he understands agrees with plan. Patient remained in stable condition while in the emergency department.. 12/10 09:22 Order name: Basic Metabolic Panel; Complete Time: 10:17 ms3 04/17 09:22 Order name: CBC with Diff; Complete Time: 10:17 ms3 04/17 09:22 Order name: Magnesium; Complete Time: 10:17 ms3 04/17 09:22 Order name: PT-INR; Complete Time: 10:17 ms3 04/17 09:22 Order name: Troponin HS; Complete Time: 10:17 ms3 04/17 10:37 Order name: T4 Free EDMS 04/17 10:37 Order name: Thyroid Stimulating Hormone EDMS 04/17 10:37 Order name: Urinalysis w/ reflexes EDMS 04/17 10:37 Order name: Basic Metabolic Panel EDMS 04/17 10:37 Order name: Basic Metabolic Panel EDMS 04/17 10:37 Order name: Basic Metabolic Panel EDMS 04/17 10:37 Order name: Basic Metabolic Panel EDMS 04/17 10:37 Order name: Basic Metabolic Panel EDMS 04/17 10:37 Order name: Basic Metabolic Panel EDMS 04/17 10:37 Order name: CBC with Automated Diff EDMS 04/17 10:37 Order name: CBC with Automated Diff EDMS 04/17 10:37 Order name: CBC with Automated Diff EDMS 04/17 10:37 Order name: CBC with Automated Diff EDMS 04/17 10:37 Order name: CBC with Automated Diff EDMS 04/17 10:37 Order name: CBC with Automated Diff EDMS 04/17 10:37 Order name: Lipid Profile EDMS 04/17 10:37 Order name: Lipid Profile EDMS 04/17 10:37 Order name: Magnesium EDMS 04/17 10:37 Order name: Magnesium EDMS 04/17 10:37 Order name: Magnesium EDMS 04/17 10:37 Order name: Magnesium EDMS 10 10:37 Order name: Magnesium EDMS 04/17 10:37 Order name: Magnesium EDMS 10 10:37 Order name: Phosphorus EDMS 04/17 10:37 Order name: Phosphorus EDMS 04/17 10:37 Order name: Phosphorus EDMS 04/17 09:22 Order name: XRAY Chest (1 view) ms3 04/17 10:23 Order name: CL LEFT HEART WITHOUT LV EDMS 04/17 09:22 Order name: EKG; Complete Time: 09:22 ms3 04/17 09:22 Order name: Cardiac monitoring; Complete Time: 09:34 ms3 04/17 09:22 Order name: EKG - Nurse/Tech; Complete Time: 09:34 ms3 04/17 09:22 Order name: IV Saline Lock; Complete Time: 09:34 ms3 04/17 09:22 Order name: Labs collected and sent; Complete Time: 09:34 ms3 04/17 09:22 Order name: O2 Per Protocol; Complete Time: 09:34 ms3 04/17 09:22 Order name: O2 Sat Monitoring; Complete Time: 09:34 ms3 EC:24 Rate is 86 beats/min. Rhythm is irregular. QRS [place] is Normal. [place] interval is normal. ms3 QRS interval is normal. QT interval is prolonged. Clinical impression: NSR w/ Non-specific ST/T Changes and with frequent PVCs and prolonged QTc. Interpreted by me. Reviewed by me. Administered Medications: 09:35 Drug: Magnesium Sulfate IVPB 2 grams IVPB once over 1 hrs Route: IVPB; Infused Over: 1 ap3 hrs; Site: right antecubital; 10:30 Follow up: Response: No adverse reaction; IV Status: Infusion continued upon admission jl7 09:36 Drug: Aspirin PO Chewable Tablet 324 mg PO once; 81 mg tablets x 4 Route: PO; ap3 11:44 Follow up: Response: No adverse reaction jl7 Disposition Summary: 04/17/24 09:27 Hospitalization Ordered Notes: Hospitalization Status: Inpatient Admission ms3 Provider: Virgilio Breaux ms3 Location: Telemetry/[facility] (Inpatient) ms3 Condition: Stable ms3 Problem: new ms3 Symptoms: have improved ms3 Bed/Room Type: Standard ms3 Room Assignment: ms3 Diagnosis - Ventricular tachycardia ms3 - Syncope Near ms3 Forms: - Medication Reconciliation Form ms3 - SBAR form ms3 - Leadership Thank You Letter ms3 Critical care time excluding procedures: 10:24 Critical care time: Bedside Care: 35 minutes, Consultation: 5 minutes. Total time: 40 ms3 minutes Signatures: Dispatcher [employer] Antonette Navarrete RN RN jl7 Veronica Trevizo RN RN ap3 Daryl Curtis DO DO ms3
[2024-04-17] MEDS ORDERED: Magnesium Sulfate 2gm IVPB 2 G/50 ML BAG IV ONE (09:30)
[2024-04-17] MEDS ORDERED: ASPIRIN 81 MG CHEWABLE TABLET ONE (09:30)
[2024-04-17 09:41] LABS: Absolute Eosinophils 0.2 K/uL (0-0.5); Absolute Lymphocytes (CBC) 1.5 K/uL (0.7-4.9); Absolute Monocytes 0.7 K/uL (0.1-1.3); Absolute Neutrophil 7.9 K/uL (1.8-8.0); Basophils % 0.3 % (0-1.3); Eosinophils % 1.6 % (0-4.4); Hematocrit 43.5 % (39.6-49.0); Hemoglobin 14.6 g/dL (13.6-17.9); Lymphocytes % 14.4 % (15.3-44.8); MCH 31.1 pg (27.0-35.0); MCHC 33.4 g/dL (32.0-36.0); MPV 8.4 fL (7.6-11.3); Neutrophils % 76.7 % (41.7-73.7); Platelets 179 thou/uL (152-406); RBC Red Blood Cell Count 4.68 M/uL (4.33-5.43)
[2024-04-17 09:46] LABS: PT Prothrombin Time 13.1 SECONDS (9.4-12.5); Protime INR 1.18
[2024-04-17] MEDS ORDERED: HEPARIN 10,000 UNIT/10 ML VIAL IV ONE (09:52)
[2024-04-17] MEDS ORDERED: LIDOCAINE 1% 20 ML MDV ONE (09:52)
[2024-04-17] MEDS ORDERED: MIDAZOLAM HCL 2 MG/2 ML INJ ONE (09:52)
[2024-04-17] MEDS ORDERED: HEPA 1000U/500MLS 2,000 UNIT/1,000 ML BAG IV ONE (09:52)
[2024-04-17] MEDS ORDERED: FENTANYL CITR 100 MCG/2 ML ONE (09:53)
[2024-04-17] MEDS ORDERED: CLOPIDOGREL 75 MG TABLET ONE (09:53)
[2024-04-17] MEDS ORDERED: ATROPINE SULF 1 MG/10 ML SYR IV ONE (09:53)
[2024-04-17] MEDS ORDERED: ASPIRIN 325 MG TAB ONE (09:53)
[2024-04-17] MEDS ORDERED: HEPARIN 5000 UNIT/ML 1 ML VIAL ONE (09:53)
[2024-04-17] MEDS ORDERED: TICAGRELOR 90 MG TABLET PO ONE (09:53)
[2024-04-17 10:11] LABS: Anion Gap 10.7 mEq/L (5.0-15.0); Potassium 3.7 mEq/L (3.5-5.1); Troponin High Sensitivity 32.7 pg/mL (<58.9)
--- NOTE | 2024-04-17 10:23 | P.HP ---
Certification for Inpatient Patient admitted to: Observation With expected LOS: <2 Midnights Patient will require the following post-hospital care: None Practitioner: I am a practitioner with admitting privileges, knowledge of patient current condition, hospital course, and medical plan of care. Services: Services provided to patient in accordance with Admission requirements found in Title 42 Section 412.3 of the Code of Federal Regulations Patient History Date of Service: 04/17/24 Reason for admission: syncope, polymorphic Vtac History of Present Illness: Tad De Leon is a 68 year old male with Pmhx hypertension, CVA, arthritis, CAD, atrial fibrillation with pacemaker/defibrillator, dyslipidemia, hypothyroidism who presents for admission status post stress test with polymorphic V. tach causing syncope. Dr. Arellano recommended admission and heart catheterization. which showed significant mid LAD, OM1, and RCA disease. Allergies No Known Allergies Allergy (Verified 02/06/18 22:29) Home Medications: Metoprolol Succinate [Toprol Xl*] 25 mg PO DAILY 02/06/18 Thyroid,Pork [[place] Thyroid] 90 mg PO DAILY 02/06/18 Atorvastatin Calcium [Lipitor] 1 tab PO DAILY 04/25/23 Valsartan 160 mg PO DAILY 04/25/23 Apixaban [Eliquis] 5 mg PO BID #60 tab 04/26/23 Nitroglycerin [Nitrostat] 0.4 mg SL DIRECTED PRN #1 btl 04/26/23 Amlodipine [Norvasc] 5 mg PO BEDTIME 04/17/24 - Past Medical/Surgical History Diabetic: No -: HTN -: Atrial fibrillation on chronic anticoagulation with pacemaker defibrillator -: Dyslipidemia -: hypothyroid -: arthritis -: CVA -: Severe carotid stenosis -: Right shoulder surgery -: Atrial fibrillation ablation -: Right carotid stent -: Pacemaker/defibrillator Psychosocial/ Personal History: Lives at home with family - Family History Father -: Heart disease Notes: of heart attack Mother -: Cancer Notes: Pancreatic Brother -: Diabetes Notes: Borderline - Social History Alcohol use: No CD- Drugs: No Caffeine use: No Physical Examination - Studies Laboratory Data (last 24 hrs) 04/17/24 04/17/24 04/17/24 09:32 09:32 09:32 WBC 10.30 Hgb 14.6 Hct 43.5 Plt Count 179 PT 13.1 H INR 1.18 Sodium 141 Potassium 3.7 BUN 20 H Creatinine 1.40 H Glucose 119 H Magnesium 2.0 Assessment and Plan - Plan Assessment and plan syncope associated with polymorphic Vtac -Troponin 32.7, serial pending -cardiology consulted, plan for heart cath today -Chest xray results pending - Advance Directives Does patient have a Living Will: No Does patient have a Durable POA for Healthcare: No
[2024-04-17] MEDS ORDERED: D50W 25 GM/50 ML SYRINGE IV PRN (10:30)
[2024-04-17] MEDS ORDERED: GLUCAGON 1 MG/VIAL IV PRN (10:30)
[2024-04-17] MEDS ORDERED: NA CHLORIDE 0.9% 500 ML ONE (10:31)
--- NOTE | 2024-04-17 10:38 | ER ---
Nurse's Notes [facility] Name: Tad De Leon Age: 68 yrs Sex: Male : 1955 Arrival Date: 04/17/2024 Time: 09:19 Bed 14 Private MD: Diagnosis: Ventricular tachycardia;Syncope Near Presentation: 04/17 09:34 Chief complaint: EMS states: Near syncope during stress test, reported runs of v.tach. jl7 Coronavirus screen: At this time, the client does not indicate any symptoms associated with coronavirus-19. Ebola Screen: No symptoms or risks identified at this time. Initial Sepsis Screen: Does the patient meet any 2 criteria? No. Patient's initial sepsis screen is negative. Does the patient have a suspected source of infection? No. Patient's initial sepsis screen is negative. Risk Assessment: Do you want to hurt yourself or someone else? Patient reports no desire to harm self or others. Onset of symptoms was April 17, 2024. Care prior to arrival: IV initiated. 18 GA, in the right antecubital area. Transition of care: patient was received from another setting of care (ambulatory specialty care practice), Dr. Kapadia, Cardiology. 09:34 Method Of Arrival: EMS: [facility] jl7 09:34 Acuity: ANTONIO 2 jl7 Triage Assessment: 09:21 General: Appears in no apparent distress. uncomfortable, Behavior is calm, cooperative, jl7 appropriate for age. Pain: Denies pain. Neuro: [place] Agitation-Sedation Scale (RASS): 0 - Alert and Calm Level of Consciousness is awake, alert, obeys commands, Oriented to person, place, time, situation, Reports near syncope. Cardiovascular: Patient's skin is warm and dry. Rhythm is sinus rhythm with unifocal PVCs. Respiratory: Airway is patent Respiratory effort is even, unlabored, Respiratory pattern is regular, symmetrical. Derm: Skin is pink, warm \T\ dry. Historical: - Allergies: 09:38 No Known Allergies; jl7 - PMHx: 09:38 Arthritis; Atrial Fib; High Cholesterol; Hypertension; Hypothyroidism; jl7 - PSHx: 09:38 Cardiac Ablation; carotid stent; jl7 - Immunization history:: Adult Immunizations not up to date. - Infectious Disease History:: Denies. - Social history:: Smoking status: Patient/guardian denies using tobacco, but has a distant history of tobacco abuse. Screenin:00 [facility] ED Fall Risk Assessment (Adult) History of falling in the last 3 months, jl7 including since admission No falls in past 3 months (0 pts) Confusion or Disorientation No (0 pts) Intoxicated or Sedated No (0 pts) Impaired Gait No (0 pts) Mobility Assist Device Used No (0 pt) Altered Elimination No (0 pt) Score/Fall Risk Level 0 - 2 = Low Risk Oriented to surroundings, Maintained a safe environment. Abuse screen: Denies threats or abuse. Denies injuries from another. Nutritional screening: No deficits noted. Tuberculosis screening: No symptoms or risk factors identified. Assessment: 09:30 General: See triage. jl7 10:30 Reassessment: lab support technician at bedside to transport pt. jl7 Vital Signs: 09:34 BP 166 / 76; Pulse 88; Resp 17; Temp 97.9; Pulse Ox 97% ; Weight 91.17 kg; Height 6 ft. jl7 0 in. ; Pain 0/10; 10:00 BP 177 / 94; Pulse 81; Resp 15; Pulse Ox 97% ; jl7 09:34 Body Mass Index 27.26 (91.17 kg, 182.88 cm) jl7 09:34 Pain Scale: Adult jl7 ED Course: 08:27 Initial lab(s) drawn, by me, sent to lab. Maintain EMS IV. Dressing intact. Good blood jl7 return noted. Site clean \T\ dry. Gauge \T\ site: 18 right AC. Flushed with 10 mL NS. 09:20 Patient arrived in ED. mr 09:21 Daryl Curtis DO is Attending Physician. ms3 09:21 Arm band placed on right wrist. EKG completed in triage. Results shown to MD. jl7 09:26 Virgilio Breaux is Hospitalizing Provider. ms3 09:27 Antonette Ruelas, AIDEE is Primary Nurse. jl7 09:30 Provided Education on: use of call barcenas. jl7 09:30 Patient has correct armband on for positive identification. Client placed on continuous jl7 cardiac and pulse oximetry monitoring. NIBP monitoring applied. vehicle monitor technician on. Warm blanket given. 09:37 Triage completed. jl7 09:48 XRAY Chest (1 view) In Process Unspecified. EDMS 10:00 No provider procedures requiring assistance completed. Patient admitted, IV remains in jl7 place. intact, No redness/swelling at site. Administered Medications: 09:35 Drug: Magnesium Sulfate IVPB 2 grams IVPB once over 1 hrs Route: IVPB; Infused Over: 1 ap3 hrs; Site: right antecubital; 10:30 Follow up: Response: No adverse reaction; IV Status: Infusion continued upon admission jl7 09:36 Drug: Aspirin PO Chewable Tablet 324 mg PO once; 81 mg tablets x 4 Route: PO; ap3 11:44 Follow up: Response: No adverse reaction jl7 Medication: 11:49 VIS not applicable for this client. jl7 Outcome: 09:27 Decision to Hospitalize by Provider. ms3 10:00 Admitted to Real Estate Acquisition Analyst via stretcher, on monitor, with chart, jl7 10:00 Condition: stable 10:00 Discharge instructions given to patient, Instructed on the need for admit, Demonstrated understanding of instructions, 10:37 Patient left the ED. [facility] Signatures: Dispatcher [employer] EDDE Tanya Underwood, Reg Reg mr Antonette Ruelas, RN RN jl7 Veronica Trevizo RN RN ap3 Daryl Curtis, DO ms3
[2024-04-17] MEDS ORDERED: D10W 125 ML IV PRN (10:44)
--- NOTE | 2024-04-17 10:51 | RAD REPORT ---
EXAMINATION: ONE VIEW CHEST XR CLINICAL INDICATION: Male, 68 years old.,Syncope TECHNIQUE: Frontal chest projection is submitted. Examination is limited by patient positioning and t echnique. COMPARISON: 04/25/2023 FINDINGS: The lungs are well inflated and clear. No pneumothorax or sizable effusion. The heart is again at up per limit of normal in size. Mediastinal contours are unchanged, with stable left chest wall pacer/AICD positioning. IMPRESSION: No acute intrathoracic abnormalities.
[2024-04-17] MEDS: INSULIN REGULAR (HUMAN) 100 UNIT/ML SQ SCH (11:30)
--- NOTE | 2024-04-17 12:21 | P.CNS ---
Date of Consult: 04/17/24 Chief Complaint: syncope, polymorphic Vtac History of Present Illness: Patient with PMH of CAD, ATRIAL FIBRILLATION, Presented from cardiology clinic after he had VT during stress test, denies any other symptoms. Allergies No Known Allergies Allergy (Verified 02/06/18 22:29) Home medications list reviewed: Yes Home Medications: Metoprolol Succinate [Toprol Xl*] 25 mg PO BID 02/06/18 Thyroid,Pork [[place] Thyroid] 115 mg PO DAILY 02/06/18 Atorvastatin Calcium [Lipitor] 1 tab PO DAILY 04/25/23 Clopidogrel Bisulfate [Plavix*] 75 mg PO DAILY 04/25/23 Valsartan 160 mg PO DAILY 04/25/23 Apixaban [Eliquis] 5 mg PO BID #60 tab 04/26/23 Clopidogrel Bisulfate [Plavix] 75 mg PO DAILY #30 tab 04/26/23 Nitroglycerin [Nitrostat] 0.4 mg SL DIRECTED PRN #1 btl 04/26/23 - Past Medical/Surgical History Diabetic: No -: HTN -: Atrial fibrillation on chronic anticoagulation with pacemaker defibrillator -: Dyslipidemia -: hypothyroid -: arthritis -: CVA -: Severe carotid stenosis -: Right shoulder surgery -: Atrial fibrillation ablation -: Right carotid stent -: Pacemaker/defibrillator Psychosocial/ Personal History: Lives at home with family - Family History Father Medical History: Heart disease Notes: of heart attack Mother Medical History: Cancer Notes: Pancreatic Brother Medical History: Diabetes Notes: Borderline - Social History Smoking Status: Former smoker Alcohol use: No CD- Drugs: No Caffeine use: No Review of Systems 10-point ROS is otherwise unremarkable Physical Examination Temp Pulse Resp BP Pulse Ox 97.9 F 88 17 166/76 H 04/17/24 09:34 04/17/24 09:34 04/17/24 09:34 04/17/24 09:34 General: Alert, In no apparent distress HEENT: Atraumatic, PERRLA, Mucous membr. moist/pink, EOMI, Sclerae nonicteric Neck: Supple, 2+ carotid pulse no bruit, No LAD, Without JVD or thyroid abnormality Respiratory: Clear to auscultation bilaterally, Normal air movement Cardiovascular: Regular rate/rhythm, Normal S1 S2 Gastrointestinal: Normal bowel sounds, No tenderness Musculoskeletal: No tenderness Integumentary: No rashes Neurological: Normal gait, Normal speech, Normal tone, Normal affect Lymphatics: No axilla or inguinal lymphadenopathy Laboratory Data (last 24 hrs) 04/17/24 04/17/24 04/17/24 09:32 09:32 09:32 WBC 10.30 Hgb 14.6 Hct 43.5 Plt Count 179 PT 13.1 H INR 1.18 Sodium 141 Potassium 3.7 BUN 20 H Creatinine 1.40 H Glucose 119 H Magnesium 2.0 - Problems (1) Ventricular tachycardia Current Visit: Yes Status: Acute Plan: happened during stress test, polymorphic in nature, coronary angiogram done and shows significant mid LAD, OM1 and RCA disease. transfer to [facility] for urgent CABG. Toprol XL 25 mg daily correct patient electrolytes (K more than 4 and Mg more than 2). (2) Afib Onset Date: 01/13/18 Current Visit: No Status: Chronic Plan: Hold anticoagulation in anticipation for CABG, patient can be placed on Heparin drip for anticoagulation. Qualifiers: Atrial fibrillation type: chronic
[2024-04-17 13:55] VITALS: TEMP 97.5
[2024-04-17 15:44] VITALS: BP 160/80; O2SAT 100
[2024-04-17 16:23] VITALS: BMI 27.2
[2024-04-17] MEDS: HEPARIN/D5W 25,000 UNIT/500 ML BAG IV SCH (16:52)
--- NOTE | 2024-04-17 19:43 | P.SSS ---
Patient History Date of Service: 04/17/24 Reason for admission: syncope, polymorphic Vtac History of Present Illness: Tad De Leon is a 68 year old male with Pmhx hypertension, CVA, arthritis, CAD, atrial fibrillation with pacemaker/defibrillator, dyslipidemia, hypothyroidism who presents for admission status post stress test with polymorphic V. tach causing syncope. Dr. Arellano recommended admission and heart catheterization. which showed significant mid LAD, OM1, and RCA disease. On examination, heart rate within normal limits, no acute distress noted, clear bilateral breath sounds. Laboratory evaluation significant for BUN/creatinine 20/1.4, GFR 54. Chest x-ray with no acute findings present. Tad will be admitted to hospitalist service with Dr. Arellano consulted. Recommendation to transfer to [facility] for emergent CABG. Allergies No Known Allergies Allergy (Verified 02/06/18 22:29) Home Medications: Metoprolol Succinate [Toprol Xl*] 25 mg PO DAILY 02/06/18 Thyroid,Pork [[place] Thyroid] 90 mg PO DAILY 02/06/18 Atorvastatin Calcium [Lipitor] 1 tab PO DAILY 04/25/23 Valsartan 160 mg PO DAILY 04/25/23 Apixaban [Eliquis] 5 mg PO BID #60 tab 04/26/23 Nitroglycerin [Nitrostat] 0.4 mg SL DIRECTED PRN #1 btl 04/26/23 Amlodipine [Norvasc] 5 mg PO BEDTIME 04/17/24 - Past Medical/Surgical History Has patient received pneumonia vaccine in the past: Yes Diabetic: No -: HTN -: Atrial fibrillation on chronic anticoagulation with pacemaker defibrillator -: Dyslipidemia -: hypothyroid -: arthritis -: CVA -: Severe carotid stenosis -: Right shoulder surgery -: Atrial fibrillation ablation -: Right carotid stent -: Pacemaker/defibrillator Psychosocial/ Personal History: Lives at home with family - Family History Father -: Heart disease Notes: of heart attack Mother -: Cancer Notes: Pancreatic Brother -: Diabetes Notes: Borderline - Social History Smoking Status: Former smoker Alcohol use: No CD- Drugs: No Caffeine use: No Place of Residence: Home Review of Systems 10-point ROS is otherwise unremarkable Physical Examination - Vital Signs Temperature: 97.5 F Blood Pressure: 160/80 Pulse: 77 Respirations: 16 - Physical Exam General: Alert, In no apparent distress, Oriented x3 HEENT: Atraumatic, Normocephalic, PERRLA Neck: Supple, 2+ carotid pulse no bruit Respiratory: Clear to auscultation bilaterally, Normal air movement Cardiovascular: Normal pulses, Regular rate/rhythm, Normal S1 S2 Capillary refill: <2 Seconds Gastrointestinal: Normal bowel sounds, Soft and benign, No tenderness Musculoskeletal: No clubbing Integumentary: No rashes Neurological: Normal speech, Normal tone - Studies Laboratory Data (last 24 hrs) 04/17/24 04/17/24 04/17/24 09:32 09:32 09:32 WBC 10.30 Hgb 14.6 Hct 43.5 Plt Count 179 PT 13.1 H INR 1.18 Sodium 141 Potassium 3.7 BUN 20 H Creatinine 1.40 H Glucose 119 H Magnesium 2.0 Treatment Summary: Assessment and plan CAD with multivessel disease Syncope associated with polymorphic ventricular tachycardia Atrial fibrillation on chronic anticoagulation with pacemaker/defibrillator -Troponin 32.7, serial pending -cardiology consulted, heart cath 04/17 -Continue Toprol 25 mg daily -Chest xray no acute findings -Transfer to [facility] for emergent CABG -Heparin drip -Hold Eliquis for emergent CABG -Continuous telemetry ANDRES -BUN/creatinine 20/1.4, GFR 54 -Monitor in a.m. labs HTN/dyslipidemia Hypothyroidism CVA -Continue home medication DVT PPx heparin drip Full code [facility] transfer - Disposition Disposition[facility] Condition: FAIR
[2024-04-18] MEDS ORDERED: THYROID 30 MG TAB PO SCH (06:00)
[2024-04-18] MEDS ORDERED: ATORVASTATIN 80 MG TAB PO SCH (09:00)
[2024-04-18] MEDS ORDERED: VALSARTAN 160 MG TAB PO SCH (09:00)
[2024-04-18] MEDS ORDERED: HOME MED 1 EA UNK (Thyroid,Pork [Armour Thyroid] 90 MG Tablet) PO SCH (09:00)
[2024-04-18] MEDS ORDERED: METOPROLOL XL 25 MG TAB PO SCH (09:00)
--- NOTE | 2024-04-18 20:00 | OP ---
Date of Procedure: 04/17/2024 Surgeon: Trav Arellano Procedure Performed: Selective coronary angiogram. Indication For Procedure: Abnormal stress test. Monomorphic VT during a stress test. Complications: None. Estimated Blood Loss: Less than 50 cc. Access: Right radial, closed by TR band. Sedation Time: 20 minutes with 1 of Versed and 25 of fentanyl. Description Of Procedure: After risks, and benefits, and alternatives were explained to the patient, patient agreed to proceed with procedure and signed informed consent. The patient was brought back to the yard laborer, prepped and draped in a sterile fashion. Time-out was performed. Sedation was admi nistered. Next, right radial ultrasound-guided micropuncture technique, access was obtained. A Tige r 4.0 catheter was advanced over a J-wire to the aortic root. Selective angiogram was done using thi s catheter. At the end of procedure, catheter was removed to the subclavian artery for selective ang iogram of the left subclavian artery and then catheter was removed over a J-wire. Sheath was removed . TR band was applied. Hemostasis was achieved and the patient was moved back to recovery in stable condition. Findings: 1.Left main normal. 2.LAD; very tortuous with diffuse disease with mid 50% disease, then followed by another mid 70% dis ease, then mild luminal irregularities. 3.Left circ; proximal mild luminal irregularities, mid diffuse 50% disease. 4.OM1; proximal 80% to 90% disease, then mild luminal irregularities. 5.RCA; diffuse severe disease before mid 100% occluded with [id number] collaterals into the RPDA. 6.Left subclavian artery/DE LUNA patent. Assessment And Plan: Significant mid LAD disease. Proximal OM1 and mid RCA disease. Consult CT Surgery to evaluate for a bypass, patient will be transferred as an inpatient as he had VT during a stress test. MALDONADO/MODL Voice ID: [id number] Report ID: [id number]
--- NOTE | 2024-04-20 15:58 | EKG ---
Test Date: 2024-04-17 Test Time: 09:19:37 Game Manager: ALP MEASUREMENT RESULTS: Intervals: Rate: 86 AR: 192 QRSD: 170 QT: 422 QTc: 504 [place]: P: -28 AR: 192 QRS: 92 T: -78 INTERPRETIVE STATEMENTS: Demand pacemaker, interpretation is based on intrinsic rhythm Marked sinus bradycardia with marked sinus arrhythmia with premature ventricular complexes or fusion complexes Left bundle branch block Abnormal ECG Compared to ECG 04/25/2023 14:37:52 Fusion complex(es) now present Left bundle-branch block now present Sinus rhythm no longer present Electronically Signed On 04-20-24 15:52:31 VEHICLE DETAILER by Trav Arellano
== END 2024-04-17 17:30 | disposition short-term general hospital (02) ==
LOC: ER 09:19 → ERHOLD 10:30 → 2ND 16:09
PROVIDERS: ADMIT Internal Medicine; ATTEND Internal Medicine
PROC: B2111ZZ Fluoroscopy of Multiple Coronary Arteries using Low Osmolar Contrast (ICD-10-PCS; principal; 2024-04-17)
DX: I25.10 Atherosclerotic heart disease of native coronary artery without angina pectoris (principal); I25.82 Chronic total occlusion of coronary artery; I47.29 Other ventricular tachycardia; N17.9 Acute kidney failure, unspecified; I48.91 Unspecified atrial fibrillation; I10 Essential (primary) hypertension; E78.5 Hyperlipidemia, unspecified; I65.29 Occlusion and stenosis of unspecified carotid artery; R55 Syncope and collapse; E03.9 Hypothyroidism, unspecified; M19.90 Unspecified osteoarthritis, unspecified site; Z95.810 Presence of automatic (implantable) cardiac defibrillator; Z95.820 Peripheral vascular angioplasty status with implants and grafts; Z86.73 Personal history of transient ischemic attack (TIA), and cerebral infarction without residual deficits; Z87.891 Personal history of nicotine dependence; Z79.01 Long term (current) use of anticoagulants; Z79.899 Other long term (current) drug therapy; Z82.49 Family history of ischemic heart disease and other diseases of the circulatory system; Z80.0 Family history of malignant neoplasm of digestive organs
CPT/HCPCS: 36415; 71045; 76937; 80048; 82947; 83735; 84484; 85025; 85610; 93005; 93454; 96365; 99152; 99153; 99285; C1893; G0378; J0461; J1644; J2003; J2250; J3010; J3475; J7040; Q9966